=== PATIENT | male | born 1940 | race Caucasian/White ===

== ENCOUNTER → 2024-09-09 14:26 | Outpatient (REF) | payer OTHER, SELFPAY | LOC: HWRAD 14:26 | PROVIDERS: ATTENDING PHYSICIAN Family Medicine | DX: R63.4 Abnormal weight loss (principal); N18.2 Chronic kidney disease, stage 2 (mild) | CPT/HCPCS: 74176 ==

== ENCOUNTER 2024-09-17 11:34 | Inpatient (IN) | payer OTHER, SELFPAY ==
[2024-09-17] VITALS (9 sets, daily range): BP systolic 112–136; BP diastolic 59–83; BMI 21.2
--- NOTE | 2024-09-17 08:08 | ED.GENMED ---
History of Present Illness
General
Chief Complaint: Weakness
Source: patient
Exam Limitations: none
Time Seen by Provider: 09/17/24 07:51
History of Present Illness
History of Present Illness:
84-year-old male presents via EMS from his residence with complaints of generalized weakness. He has a fairly recent diagnosis of cancer. There is metastasis in the lungs and liver. They believe it might be a GI primary source. Patient notes
that his diarrhea he is not having has been going on for quite some time. He cannot keep anything in. He is lost 30 pounds in 5 months. He has recently seen [facility]. He recently had a CT scan of his abdomen and pelvis. He denies
any blood in the stool. He does have a history of [id number] diabetes. He states any form of exertion or activity is quite tiresome for him
Past History
Past History
ED Past Medical History: Other
ED Past Surgical History: Other
Social History
Tobacco: Non-smoker
Phy Exam
Physical Exam
Physical Exam:
General: Cachectic appearing male no acute respiratory distress
HEENT: Normocephalic atraumatic mucosa dry
Heart: Regular rate and rhythm
Lungs: Clear no wheeze
Abdomen is soft nontender nondistended
Extremities: No cyanosis
Skin: Warm no rash
Neurologic exam: Alert and oriented no facial asymmetry
Course
Orders/Labs/Results
Orders:
Orders
09/17/24 08:05
STOOL [C difficile Antigen & Toxins] Urgent
VERÓNICA Source: Feces/Stool
Specimen Description:
Stool Culture Urgent
VERÓNICA Source: Feces/Stool
Specimen Description:
09/17/24 08:06
Electrocardiogram (*1) Urgent
Reason for Study: Fatigue / Weakness
EKG- Treatment ONCE
09/17/24 08:17
Complete Blood Count/With Diff Urgent
Comprehensive Metabolic Panel Urgent
Ferritin Urgent
Iron Urgent
TIBC [Total Iron Binding] Urgent
0.9% Sodium Chloride 1000 ml [Nss] 1,000 ml IV BOLUS
09/17/24 09:25
Acetaminophen [Tylenol] 650 mg PO NOW STA
Abnormal Lab Results
09/17/24
08:17
MCHC 32.7 L g/dL
(33.0-37.0)
RDW 18.6 H %
(11.5-14.5)
Plt Count 99 L 10^3/uL
(130-400)
MPV 12.2 H fL
(7.4-10.4)
Abs Immat Gran (auto) 0.1 H 10^3/uL
(0-0.05)
Absolute Neuts (auto) 7.3 H 10^3/uL
(1.4-6.5)
Absolute Lymphs (auto) 1.0 L 10^3/uL
(1.2-3.4)
Absolute Monos (auto) 0.7 H 10^3/uL
(0.1-0.6)
Neutrophils % 79.6 H %
(42.2-75.2)
Lymphocytes % 11.5 L %
(20.5-51.1)
Carbon Dioxide 13 L* mmol/L
(22-30)
BUN 52 H mg/dl
(9-20)
Creatinine 1.8 H mg/dL
(0.7-1.3)
Glucose 123 H mg/dl
(70-99)
Iron 45 L ug/dl
(49-181)
TIBC 243 L ug/dl
(261-462)
% Saturation 18 L %
(20-50)
Total Bilirubin 1.5 H mg/dl
(0.2-1.3)
AST 90 H U/L
(17-59)
ALT 55 H U/L
(0-50)
Alkaline Phosphatase 261 H U/L
(38-126)
Total Protein 6.2 L g/dl
(6.3-8.2)
Albumin 3.4 L g/dl
(3.5-5.0)
09/17/24 08:17
09/17/24 08:17
Vital Signs
Initial and Last Documented VS:
Initial Vital Signs
Resp BP
19 125/70
09/17/24 07:56 09/17/24 07:56
Last Documented Vital Signs
Temp Pulse Resp BP Pulse Ox
98.2 F 99 17 128/67 97
09/17/24 08:00 09/17/24 08:30 09/17/24 08:30 09/17/24 08:00 09/17/24 08:37
MDM/Problems Addressed
Differential Diagnosis Includes:
Weakness and fatigue. Recent diagnosis of cancer. Notes excessive diarrhea. Consider electrolyte abnormality versus dehydration versus kidney injury. Will check stool studies. I reviewed CT scan from last week of his abdomen and pelvis which
demonstrates lesions in the lung liver and questionable rectosigmoid lesion.
*Critical Care Note
Total Time (30-74mins, 75-104mins- exclusive of procedures): Not Applicable
Update Note
Update Note:
Labs demonstrate a metabolic acidosis with acute kidney injury. Suspect patient is quite dehydrated. Relayed this information to the patient and the [id number] who is now in the room. Will admit to hospital for further evaluation
ED Attending Note
-
Portions of this chart may have been created with voice recognition software.� Occasional wrong word or��sound alike� substitutions may have occurred due to the inherent limitations of voice recognition software.
Discharge Plan
Departure
Patient Disposition: Admit
Date of Disposition: 09/17/24
Time of Disposition: 09:27
Admit to: Med/Surg
Presentation/result/management discussed w/ accepting MD/DO: Hospitalist
Discharge Problem:
Metabolic acidosis
Prescriptions:
No Action
terazosin 10 mg Capsule
10 mg PO HS
Referrals:
David Vidal MD [Family Provider] -
Interventions
Interventions:
*Risk Screen - Suicide Last Done: 09/17/24 08:00
*General Assessment Last Done: 09/17/24 08:00
*Neglect/Abuse Screening Last Done: 09/17/24 08:00
ED- Fall Risk Assessment Last Done: 09/17/24 08:37
*ED COVID-19 Vaccine History Last Done: 09/17/24 08:36
ED- Cardiac Assessment Last Done: 09/17/24 08:37
ED- Neurological Assessment Last Done: 09/17/24 08:37
ED- Pulmonary Assessment Last Done: 09/17/24 08:37
Discharge Date and Time
Print Language: MAORI
[2024-09-17] MEDS: NSS 1000 IV (08:34)
[2024-09-17 08:56] LABS: ALT (SGPT) 55 U/L (0-50); AST (SGOT) 90 U/L (17-59); Albumin 3.4 g/dl (3.5-5.0); Alkaline Phosphatase 261 U/L (38-126); Blood Urea Nitrogen 52 mg/dl (9-20); Calcium 8.9 mg/dl (8.4-10.2); Carbon Dioxide 13 mmol/L (22-30); Chloride 107 mmol/L (98-107); Estimated Creatinine Clearance 30 ml/min; Glucose 123 mg/dl (70-99); Iron 45 ug/dl (49-181); Potassium 3.9 mmol/L (3.5-5.1); Sodium 136 mmol/L (135-145); Total Bilirubin 1.5 mg/dl (0.2-1.3); Total Protein 6.2 g/dl (6.3-8.2); eGFR 36.43
[2024-09-17 08:59] LABS: Percent Saturation 18 % (20-50); Total Iron Binding Capacity 243 ug/dl (261-462)
[2024-09-17 09:03] LABS: % Basophils 0.2 % (0-2); % Eosinophils 0.1 % (0-6); % Immature Granulocytes 0.5 % (0-0.5); % Lymphocytes 11.5 % (20.5-51.1); % Monocytes 7.9 % (1.7-9.3); % Neutrophils 79.6 % (42.2-75.2); Absolute Immature Granulocytes 0.1 10^3/uL (0-0.05); Absolute Monocytes 0.7 10^3/uL (0.1-0.6); Absolute Neutrophils 7.3 10^3/uL (1.4-6.5); Hematocrit 44.9 % (39.0-52.0); Mean Corp Hgb Conc. 32.7 g/dL (33.0-37.0); Mean Corpuscular Hgb 27.1 pg (27.0-31.0); Mean Corpuscular Volume 83.1 fL (80.0-94.0); Mean Platelet Volume 12.2 fL (7.4-10.4); Nucleated Red Blood Cells % 0 % (-); Platelet Count 99 10^3/uL (130-400); Red Blood Cell Count 5.49 10^6/uL (4.70-6.10); Red Cell Dist. Width 18.6 % (11.5-14.5); White Blood Cell Count 9.2 10^3/uL (4.8-10.8)
[2024-09-17] MEDS: TYLENOL 650 MG PO (09:34)
--- NOTE | 2024-09-17 10:59 | HPS.HSE ---
Family Physician
-
Family Physician: David Vidal
Chief Complaint
-
weakness
History of Present Illness
84-year-old male extensive past medical history who is presenting from home with complaints of diarrhea and weakness. Patient states of recent 35 pound weight loss. Recently underwent CAT scan without contrast which showed pulmonary nodule and
liver lesions. Unknown primary. Patient subsequently followed up with the oncology who recommended flex sig for further evaluation. Patient also states of chronic diarrhea which has been ongoing for few weeks. States diarrhea alternates with
solid stools. States of severely decreased appetite. Denies any nausea or vomiting. Denies any blood in stool. Denies any dysphagia odynophagia. Denies any prior history of endoscopy or colonoscopy. States mother with a history of colonic
cancer. Also states of right upper quadrant abdominal pain. States recently he was told he has elevated creatinine and that with chronic kidney disease. Denies any fevers or chills. Denies any chest pain or palpitations. Denies any shortness of
breath at rest or exertion. Denies any orthopnea PND or lower extremity edema.
Medical History
Past Medical History
Past Medical History: Reports Other
Additional Past Medical History:
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
Primary hypertension
Diabetes mellitus
Hyperlipidemia
CKD stage II
BPH
Past Surgical History: Reports Tonsilectomy
Social History
Tobacco: Non-smoker
Drug: None
Family History
Family History: Cancer (Colon cancer-mother )
Allergies / Home Medications
Allergies reflects when Allergies were last updated in [facility].
Home Medications with original date entered in [facility]
Allergy/Medication List:
Allergies
Allergy/AdvReac Type Severity Reaction Status Date / Time
lisinopril Allergy Unknown Verified 09/17/24 07:59
Sulfa (Sulfonamide Allergy Nausea / Verified 09/17/24 07:59
Antibiotics) Vomiting
Home Medications
acetaminophen 500 mg tablet 1,000 mg PO HS PRN mild pain 09/17/24
amlodipine 10 mg tablet 10 mg PO DAILY 09/17/24
aspirin 81 mg tablet,delayed release 81 mg PO DAILY 09/17/24
atenolol 50 mg tablet 50 mg PO BID 09/17/24
calcium carbonate (Tums) 200 mg PO DAILY PRN gerd 09/17/24
metformin 1,000 mg tablet 1,000 mg PO BID 09/17/24
omega 2-yac-rev-fish oil 1,000 mg (120 mg-180 mg) capsule (Fish Oil) 4 cap PO DAILY 09/17/24
simvastatin 20 mg tablet 20 mg PO DAILY 09/17/24
terazosin 10 mg capsule 10 mg PO HS 09/17/24
triamterene 37.5 mg-hydrochlorothiazide 25 mg capsule 1 cap PO DAILY 09/17/24
Review of Systems
-
History Source: Patient
A 12 point ROS was completed and negative except as noted: Yes
Physical Exam
Vital Signs
Vital Signs
Temp Pulse Resp BP Pulse Ox
98.2 F 85 20 136/65 96
09/17/24 08:00 09/17/24 10:15 09/17/24 10:15 09/17/24 10:00 09/17/24 10:15
Physical Exam
General: No Apparent Distress, Comfortable, Conversant and Appears Chronically Ill
HEENT: NormoCephalic, Anicteric, Moist mucous membranes, Atraumatic, No Ptosis, Nose Appears Normal and Ears Appear Normal
Respiratory: Clear
Cardiac: S1/S2 and Regular Rhythm; No Murmur or Rub
GI: Soft, Non Distended, Normal Bowel Sounds and Tender (RUQ ); No Organomegaly
Rectal: Deferred by Provider
Musculoskeletal: No Cyanosis and No Edema
Skin: Warm; No Rash
Neuro: Awake, Alert, Oriented, AO x 3, No Motor Deficits and Nonfocal/grossly intact
Psych: Calm
Laboratory Results
-
09/17/24 08:17
09/17/24 08:17
Laboratory Results
Total Bilirubin 1.5 mg/dl (0.2-1.3) H 09/17/24 08:17
AST 90 U/L (17-59) H 09/17/24 08:17
ALT 55 U/L (0-50) H 09/17/24 08:17
Alkaline Phosphatase 261 U/L (38-126) H 09/17/24 08:17
Impression/Plan
-
#Weakness likely secondary to dehydration secondary to diarrhea
#Metabolic acidosis secondary to diarrhea
Awaiting for stool studies
Low residue diet
Start patient on sodium bicarbonate infusion
PT and OT evaluation in the morning
If stool studies negative can do trial of Imodium
Check orthostatics
Encourage p.o. intake
GI evaluation
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
#Weight loss likely secondary to suspected malignancy
Awaiting cancer tumor marker
GI recommended against flex sig
Dietary eval
Once creatinine improves can do liver biopsy will defer to oncology/[facility] as outpatient
#Elevated creatine w chronic kidney disease stage II
Hold HCTZ and triamterene
Bicarbonate infusion
Bladder scan straight cath protocol
Recent CT abdomen pelvis was negative for hydronephrosis
Trend creatinine daily
#Primary hypertension
Continue with Norvasc and atenolol
Holding triamterene and HCTZ
Diabetes mellitus type 2
Hold metformin
Insulin sliding scale and Accu-Cheks for now
Hyperlipidemia
Continue statin
BPH
Monitor urinary output
DVT prophylaxis with Lovenox
I spent a total of 78 minutes with the patient or on the floor. More than 50% of this time involved counseling and coordination of care.
--- NOTE | 2024-09-17 11:07 | CON.GI ---
Addendum entered and electronically signed by Juan Manuel Glynn MD 09/17/24 12:49:
Patient seen and examined, agree with nurse practitioner note. Patient is an 84-year-old male with chronic renal insufficiency, diabetes who presents with decreased appetite, weight loss and right-sided abdominal pain. He states that for the past
several weeks he has been having decreased energy and weight loss and notices right-sided pain, not related to eating. He had a CT scan without contrast that showed suspicious for centimeter focus in the left lobe of the liver for malignancy,
though also heterogeneity of the right lobe of the liver concerning for more diffuse metastatic disease along with multiple pulmonary nodules. There is also a 2.8 cm cystic focus that was adjacent to the rectosigmoid, though not intraluminal.
There is no obvious mass, again on this noncontrast CT scan. He is never had an endoscopy or colonoscopy and has been having some increasing intermittent diarrhea and constipation. He denies any melena or hematochezia, dysphagia or odynophagia.
On exam he has some right upper quadrant tenderness though otherwise is benign. At this point his presentation is consistent with metastatic cancer of unknown primary. The fluid collection noted near the rectosigmoid was extraluminal, and not
intraluminal, making this a low yield place for biopsy. A more likely high yield would be liver biopsy, and would be more beneficial if could do imaging with contrast for better clarification. At this point would continue supportive care, IV
fluids, oncology continued evaluation, and again would recommend biopsy of liver lesion for diagnosis rather than colonoscopy which would be more difficult given his overall conditioning, and again the rectosigmoid collection was adjacent, and not
intraluminal. Will check labs including alpha-fetoprotein though no other obvious stigmata of cirrhosis to suggest HCC. Will continue to follow for now.
Original Note:
Consultation
-
Date/Time Consultation Requested: 09/17/24 1100
Date/Time Consultation Performed: 09/17/24 1107
Requesting Provider: Dr. Mccain
Performing Provider: Dr. Glynn
Reason for Consultation: chronic diarhhea, colon mass
Medical History
Chief Complaint / HPI
Chief Complaint: Weight loss, diarrhea
History of Present Illness:
84-year-old male with past medical history of diabetes, hyperlipidemia chronic kidney disease, BPH, weight loss of 40 pounds in 1 month, poor appetite, diarrhea with right sided abdominal pain. The patient had outpatient CT of the abdomen pelvis
without oral or IV contrast performed on 09/09/2024 that showed numerous bilateral pulmonary nodules which measure up to 2.3 cm in the medial left lower lobe and likely pulmonary metastasis. 4.0 cm hypodense lesion within the left hepatic lobe as
well as extensive heterogeneous appearance of the mid/upper right hepatic lobe which are also suspicious for metastatic disease. 2.8 cm cystic focus adjacent to the rectosigmoid junction which may represent focal free fluid. Trace perihepatic free
fluid. Labs performed on 08/27/2024 showed WBC 10.3, hemoglobin 14.1, hematocrit 45.3, MCV 89, MCH 27.8, platelets 174, sodium 135, potassium 4.4, chloride 103, CO2 10, BUN 48, creatinine 2.36, glucose 147, total bilirubin 0.6, AST 50, ALT 36, alk
phos 182, albumin 4.0, total protein 6.5, calcium 9.3, TSH was 4.5. The patient saw Dr. Vesna Sanchez on Monday for evaluation. She recommended GI evaluation for CT findings as well as outpatient lab work. Patient had progressive weakness
and came to the emergency room for further evaluation. The patient states that over the past 2 months he has had intermittent right sided abdominal pain that happens without provocation. He states this is dull, nonradiating, nothing makes better
or worse. He also has poor appetite. He states he does not necessarily have nausea. He forces himself to eat at times. He can have some discomfort. He has lost approximately 40 pounds. He has had bowel changes in the past month in the form of
that he will have loose stools alternating with some solid pieces coming out. At first he thought this was straight diarrhea however after discussing with him he will notice solid pieces coming out with large quantities of loose stools after. He
denies any fevers, chills, nausea, vomiting, melena, hematochezia, dysphagia or odynophagia. He denies any acholic stools or bilirubinuria. He denies any history of hepatitis, jaundice or known liver disease. He denies any history of tattoos,
piercings or IV drug use. He has never had any blood transfusions. He does have a family history of colon cancer in his mother who was diagnosed at the age of 56. He has never had an endoscopy or colonoscopy in his lifetime. He states his
brother had prostate cancer. The patient does not smoke. In the past he would only drink 1 glass of wine never anything more. He has not done this in quite a long time. Rectal exam performed by myself in the emergency room without any palpable
mass, light brown stool. Trace OB positive. Current labs WBC 9.2, hemoglobin 15.0, hematocrit 44.9, platelets 99, MCV 83.1, MCH 27.1, sodium 136, potassium 3.9, chloride 107, CO2 13, BUN 52, creatinine 1.8, glucose 123, iron 45, TIBC 243, percent
saturation 18, total bilirubin 1.5, AST 90, ALT 55, alk phos 261.
Past Medical History
Past Medical History: Hypercholesterolemia, NIDDM and Other (Chronic kidney disease, BPH, benign positional vertigo)
Past Surgical History: Tonsilectomy
Social History
Tobacco: Non-Smoker
Alcohol: None
Drug: None
Living: With Family
Family History
Family History: Other (Mother history of colon cancer age 56, brother prostate cancer)
Allergies / Home Medications
Allergy/AdvReac Type Severity Reaction Status Date / Time
lisinopril Allergy Unknown Verified 09/17/24 07:59
Sulfa (Sulfonamide Allergy Nausea / Verified 09/17/24 07:59
Antibiotics) Vomiting
�Medication �Instructions �Recorded
acetaminophen 500 mg tablet 1,000 mg PO HS PRN mild pain 09/17/24
amlodipine 10 mg tablet 10 mg PO DAILY 09/17/24
aspirin 81 mg tablet,delayed 81 mg PO DAILY 09/17/24
release
atenolol 50 mg tablet 50 mg PO BID 09/17/24
calcium carbonate (Tums) 200 mg PO DAILY PRN gerd 09/17/24
metformin 1,000 mg tablet 1,000 mg PO BID 09/17/24
omega 4-wxy-mjx-fish oil 1,000 mg 4 cap PO DAILY 09/17/24
(120 mg-180 mg) capsule (Fish Oil)
simvastatin 20 mg tablet 20 mg PO DAILY 09/17/24
terazosin 10 mg capsule 10 mg PO HS 09/17/24
triamterene 37.5 1 cap PO DAILY 09/17/24
mg-hydrochlorothiazide 25 mg
capsule
Review of Systems
-
All other systems: A 12 pt ROS was Negative except as stated above in HPI
Vital Signs
Temp Pulse Resp BP Pulse Ox
98.2 F 85 20 136/65 96
09/17/24 08:00 09/17/24 10:15 09/17/24 10:15 09/17/24 10:00 09/17/24 10:15
Physical Exam
Exam
General: No Apparent Distress
HEENT: Anicteric
Respiratory: Clear (Anterior)
Cardiac: Regular Rhythm
GI: Soft, Non Distended, Normal Bowel Sounds and Tender (Right upper quadrant)
Rectal: Brown (Light brown stool rectal vault, solid stool) and Hem Positive (Trace OB positive)
Musculoskeletal: No Edema
Skin: Warm and Dry
Neuro: AO x 3
Psych: Calm
Results
WBC 9.2 10^3/uL (4.8-10.8) 09/17/24 08:17
Hgb 15.0 g/dL (13.0-18.0) 09/17/24 08:17
Hct 44.9 % (39.0-52.0) 09/17/24 08:17
MCV 83.1 fL (80.0-94.0) 09/17/24 08:17
Plt Count 99 10^3/uL (130-400) L 12/03/24 08:17
Absolute Neuts (auto) 7.3 10^3/uL (1.4-6.5) H 09/17/24 08:17
Sodium 136 mmol/L (135-145) 09/17/24 08:17
Potassium 3.9 mmol/L (3.5-5.1) 09/17/24 08:17
Chloride 107 mmol/L (98-107) 09/17/24 08:17
Carbon Dioxide 13 mmol/L (22-30) L* 09/17/24 08:17
BUN 52 mg/dl (9-20) H 09/17/24 08:17
Creatinine 1.8 mg/dL (0.7-1.3) H 09/17/24 08:17
Calcium 8.9 mg/dl (8.4-10.2) 09/17/24 08:17
Total Bilirubin 1.5 mg/dl (0.2-1.3) H 09/17/24 08:17
AST 90 U/L (17-59) H 09/17/24 08:17
ALT 55 U/L (0-50) H 09/17/24 08:17
Alkaline Phosphatase 261 U/L (38-126) H 09/17/24 08:17
Diagnostic Image Results:
CT abdomen and pelvis without oral or IV contrast 09/09/2024:
There are numerous bilateral pulmonary nodules which measure up to 2.3 cm in the medial left lower lobe and are likely pulmonary metastasis.
There is a 4.0 cm hypodense lesion within the left hepatic lobe as well as extensive heterogeneous appearance of the mid/upper right hepatic lobe which are also suspicious for metastatic disease.
There is a 2.8 cm cystic focus adjacent to the rectosigmoid junction which may represent focal free fluid. There is trace perihepatic free fluid.
Prior GI Procedures:
EGD: Never had
Colonoscopy: Never had
Assessment / Plan
-
84-year-old male with past medical history of diabetes, hyperlipidemia chronic kidney disease, BPH, weight loss of 40 pounds in 1 month, poor appetite, change in bowel habits with right sided abdominal pain. CT of the abdomen and pelvis with out
oral or IV contrast on 09/09/2024 showing There are numerous bilateral pulmonary nodules which measure up to 2.3 cm in the medial left lower lobe and are likely pulmonary metastasis. There is a 4.0 cm hypodense lesion within the left hepatic lobe as
well as extensive heterogeneous appearance of the mid/upper right hepatic lobe which are also suspicious for metastatic disease. There is a 2.8 cm cystic focus adjacent to the rectosigmoid junction which may represent focal free fluid. There is
trace perihepatic free fluid. Normal hemoglobin. Light brown stool in rectal vault that is trace OB positive. Patient does have a family history of colon cancer and has never had endoscopy or colonoscopy in the past. Does not truly have diarrhea
but alternate between chunks of hard stool and loose stool for the past month.
Impression:
Metastatic cancer-> lesion seen in bilateral lungs, 4 cm lesion in left hepatic lobe as well as extensive heterogeneous appeared of the mid/upper right hepatic lobe.
Change in bowel habits-> area in the colon is a 2.8 cm cystic focus adjacent to the rectosigmoid junction a represent focal free fluid
Weight loss
Weakness
Chronic kidney disease
Diabetes
Plan:
-CEA, CA 19-9, alpha-fetoprotein
-Recommend heme-onc consult
-Recommend liver biopsy
-Trend labs
-Further recommendations to be forthcoming
-
-
Thank you for consultation and allowing me to participate in the patient's care. Please call the surgeon's assistant GI physician during the after hours with any questions or concerns.
--- NOTE | 2024-09-17 14:14 | PTCARENOTE ---
pt admitted from ED AOx3 LCTA B/L. Regular heart sounds. Pt's son at bedside. +BS x4 Pt c/o intermit. RUQ pain. attending notified. Pt has very dry cracked heels, Vaseline applied, heels off loaded, education provided. No edema, +PP B/L CB in reach,
oriented to surroundings.
[2024-09-17] MEDS: SODIUM BICARBONATE 1150 MEQ IV (15:08)
[2024-09-17] MEDS: NOVOLOG FLEXPEN-LOW RESISTANCE SC (16:12)
--- NOTE | 2024-09-17 16:13 | CM ---
Patient eusebio de souza with son in room, IA completed.
Patient lives in a split level next door to his son and daughter in law.
patient lives with spouse who has dementia in a split level home- (daughter in law with her).
2+1 steps to enter home.
Has walker and cane but mostly furniture glides.
Hand rails on both sides of the stairs.
Per patient he can drive
Patient has not had VN, but spouse has had [facility]
PCP: Dr Vidal
[facility]
Plan: to be determined,home with possible VN.
[2024-09-17 16:16] LABS: Glucose - Point of Care 94 mg/dl (70-99)
[2024-09-17] MEDS: LOVENOX 30 MG SC (17:29)
[2024-09-17] MEDS: TENORMIN 50 MG PO (21:16)
[2024-09-17 21:31] LABS: Glucose - Point of Care 127 mg/dl (70-99)
[2024-09-18] MEDS: TYLENOL 650 MG PO ×2 (02:17→20:47)
--- NOTE | 2024-09-18 06:40 | W.PN.GI.CBS2 ---
Today's Communication / Plan
-
Please see assessment and plan for details.
Assessment / Plan
-
1. Metastatic cancer of unknown primary: CT scan without contrast showed 4 cm lesion in the left hepatic lobe, though suspicion for more diffuse metastatic cancer in the liver given appearance without contrast. Again from a diagnostic standpoint
the highest he would like to be liver biopsy, ideally would be able to have imaging with contrast, and will continue to trend base metabolic panel, hopefully able to do CT with contrast. Cystic fluid collection again was adjacent to the colon and
not intraluminal making this a low yield place for diagnosis, and given his overall deconditioning we will hold on colonoscopy as they are likely better avenues for diagnosis. Would have heme-onc help guide diagnosis/treatment. Await tumor
markers, again HCC seems less likely.
Subjective
Subjective
Date of Service: September 18, 2024
Patient feeling okay, some less pain overnight. No fevers or chills, tolerating diet.
Objective
Data Reviewed
Laboratory Data:
Laboratory Results
Total Bilirubin 1.5 mg/dl (0.2-1.3) H 09/17/24 08:17
AST 90 U/L (17-59) H 09/17/24 08:17
ALT 55 U/L (0-50) H 09/17/24 08:17
Alkaline Phosphatase 261 U/L (38-126) H 09/17/24 08:17
Vital Signs and I&O:
Vital Signs
Temp Pulse Resp BP Pulse Ox
97.5 F 72 18 124/59 96
09/17/24 23:14 09/17/24 23:14 09/17/24 23:14 09/17/24 23:14 09/17/24 23:14
I&O
09/16/24 09/17/24 09/18/24
06:59 06:59 06:59
Intake Total 460 / 460
Balance 460 / 460
Physical Exam
Physical Exam
General: NAD
Abdomen: normal bowel sounds, soft, no tenderness, no masses or bruits, no ascites
[2024-09-18 07:00] VITALS: BP 135/55
[2024-09-18] MEDS: NOVOLOG FLEXPEN-LOW RESISTANCE SC ×3 (07:55→17:42)
[2024-09-18] MEDS: LIPITOR 10 MG PO (07:58)
[2024-09-18] MEDS: NORVASC 10 MG PO (07:58)
[2024-09-18] MEDS: TENORMIN 50 MG PO ×2 (07:58→20:54)
[2024-09-18] MEDS: ASPIR LOW (ENTERIC COATED) 81 MG PO (07:59)
[2024-09-18 08:04] LABS: Glucose - Point of Care 81 mg/dl (70-99)
[2024-09-18 08:45] LABS: INR 1.27; PT 16.4 Sec (11.4-14.6)
[2024-09-18 09:03] LABS: % Basophils 0.3 % (0-2); % Eosinophils 0.3 % (0-6); % Immature Granulocytes 0.5 % (0-0.5); % Lymphocytes 13.8 % (20.5-51.1); % Monocytes 8.5 % (1.7-9.3); % Neutrophils 76.6 % (42.2-75.2); Absolute Lymphocytes 1.1 10^3/uL (1.2-3.4); Absolute Monocytes 0.7 10^3/uL (0.1-0.6); Absolute Neutrophils 6.1 10^3/uL (1.4-6.5); Hematocrit 42.6 % (39.0-52.0); Mean Corp Hgb Conc. 32.9 g/dL (33.0-37.0); Mean Corpuscular Hgb 26.8 pg (27.0-31.0); Mean Corpuscular Volume 81.5 fL (80.0-94.0); Nucleated Red Blood Cells % 0 % (-); Platelet Count 101 10^3/uL (130-400); Red Blood Cell Count 5.23 10^6/uL (4.70-6.10); Red Cell Dist. Width 18.6 % (11.5-14.5); White Blood Cell Count 7.9 10^3/uL (4.8-10.8)
[2024-09-18 09:04] LABS: Glycohemoglobin (HgbA1c) 6.2 % (4.0-5.6)
[2024-09-18 09:37] LABS: TSH Reflex To Free T4 3.79 uIU/ml (0.47-4.68)
[2024-09-18 09:44] LABS: ALT (SGPT) 91 U/L (0-50); AST (SGOT) 180 U/L (17-59); Alkaline Phosphatase 397 U/L (38-126); Blood Urea Nitrogen 44 mg/dl (9-20); Calcium 8.6 mg/dl (8.4-10.2); Carbon Dioxide 16 mmol/L (22-30); Chloride 104 mmol/L (98-107); Estimated Creatinine Clearance 36 ml/min; Glucose 90 mg/dl (70-99); Magnesium 2.2 mg/dl (1.6-2.3); Potassium 3.7 mmol/L (3.5-5.1); Sodium 135 mmol/L (135-145); Total Bilirubin 2.2 mg/dl (0.2-1.3); Total Protein 5.6 g/dl (6.3-8.2); eGFR 45.34
--- NOTE | 2024-09-18 10:36 | W.PN.HOSP.TC ---
Today's Communication/Plan
-
Trend Cr
await tumor markers
po bicarb
IVF
PT/OT
Assessment / Plan
Assessment / Plan
General: No Apparent Distress, Comfortable, Conversant and Appears Chronically Ill
HEENT: NormoCephalic, Anicteric, Moist mucous membranes, Atraumatic, No Ptosis, Nose Appears Normal and Ears Appear Normal
Respiratory: Clear
Cardiac: S1/S2 and Regular Rhythm; No Murmur or Rub
GI: Soft, Non Distended, Normal Bowel Sounds and Tender (RUQ ); No Organomegaly
Rectal: Deferred by Provider
Musculoskeletal: No Cyanosis and No Edema
Skin: Warm; No Rash
Neuro: Awake, Alert, Oriented, AO x 3, No Motor Deficits and Nonfocal/grossly intact
Psych: Calm
#Weakness likely secondary to dehydration secondary to diarrhea
#Metabolic acidosis secondary to diarrhea
Negative for C. difficile and norovirus
Low residue diet
PT and OT evaluation
If persistent loose stool can do trial of Imodium
Check orthostatics
Encourage p.o. intake
GI recs
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
#Weight loss likely secondary to suspected malignancy
Awaiting cancer tumor marker
GI recommended against flex sig
Dietary eval
CEA at 18
AFP and CA 19-19 pending
# Acute kidney injury on chronic kidney disease likely stage II versus 3
Hold HCTZ and triamterene
Status post bicarbonate drip. Acidosis improving. Start patient p.o. bicarb. Start patient on additional IV fluids.
Bladder scan straight cath protocol
Recent CT abdomen pelvis was negative for hydronephrosis
Trend creatinine daily
Mild improvement in creatinine to 1.5 today.
#Primary hypertension
Continue with Norvasc and atenolol
Holding triamterene and HCTZ and terazosin for now.
Diabetes mellitus type 2
Hold metformin
Insulin sliding scale and Accu-Cheks for now
A1c is 6.2
Thrombocytopenia
Unclear chronicity
Trend for now
Hyperlipidemia
Continue statin
BPH
Monitor urinary output
DVT prophylaxis with Lovenox
PT/OT
Anticipated Discharge: > 48 hours
Subjective/Interval History
-
Date of Service: September 18, 2024
states of mild improvement in abd discomfort
having intermittent loose stools
no nausea or vomiting
Objective Data
-
Labs:
Laboratory Results
09/18/24
08:14
WBC 7.9
Hgb 14.0
Hct 42.6
Plt Count 101 L
PT 16.4 H
INR 1.27
Sodium 135
Potassium 3.7
Chloride 104
Carbon Dioxide 16 L
BUN 44 H
Creatinine 1.5 H
Glucose 90
Calcium 8.6
Total Bilirubin 2.2 H
AST 180 H
ALT 91 H
Alkaline Phosphatase 397 H
Vital Signs:
Vital Signs
Temp Pulse Resp BP Pulse Ox
98.1 F 58 14 135/99 96
09/18/24 07:00 09/18/24 07:00 09/18/24 07:00 09/18/24 07:58 09/18/24 07:00
I&O
09/17/24 09/18/24 09/19/24
06:59 06:59 06:59
Intake Total 460 / 460
Balance 460 / 460
Data Reviewed
-
Total Time Spent with Patient (in minutes): 55
[2024-09-18 11:13] VITALS: BP 113/55; BP 99/45; PULSE 59; O2SAT 98
[2024-09-18] MEDS: SODIUM BICARBONATE 650 MG PO ×3 (11:13→22:57)
[2024-09-18] MEDS: LR 1000 IV (11:14)
[2024-09-18] MEDS: ULTRAM 25 MG PO (11:24)
[2024-09-18 12:56] LABS: Glucose - Point of Care 89 mg/dl (70-99)
--- NOTE | 2024-09-18 14:32 | PN.CDI ---
CDI
- -
CDI:
Physician Documentation Request
Admit Date: 09/17/24 11:34
Dear Doctor Haritha,
Please review the following and provide your response in the progress notes.
Clinical Indicators:
Pt admitted with weakness secondary to dehydration secondary to diarrhea.
09/17 Registered Dietitian: '....Compared to UBW in March of 182 lbs pt with a 26 lb, 13% weight loss in 6 months.
During visit RD able to visualize temporal wasting, calf muscle wasting, apparent ribs, protrusion of clavical, orbital area sunken in.
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
If possible, please provide in your progress notes, additional specificity regarding the severity of the malnutrition:
Moderate Protein Malnutrition
Other (please specify)
[place] Criteria ([facility] Hospitalist 2017)
2 or more criteria must be present for either
non severe or severe malnutrition
Note that the criteria differs related to the
presence of an acute or chronic illness
Chronic Illness
Energy Intake Non Severe: <75% for >1 month
Severe: <75% for >1 month
Weight Loss Non Severe: 5% over 1 month
7.5% over 3 months
10% over 6 months
20% over 1 year
Severe: >5% over 1 month
>7.5% over 3 months
>10% over 6 months
>20% over 1 year
Body Fat Non Severe: Mild Loss
Severe: Severe Loss
Muscle Mass Non Severe: Mild Loss
Severe: Severe Loss
Additional criteria that can be used to Determine if Mild or Moderate Malnutrition ([employer] Manual 2018)
Use of terms such as suspected, likely, concern for, or probable (associated with a specific diagnosis that is being evaluated, monitored, or treated as if it exists) are acceptable and can be coded in the inpatient setting, when documented at the
time of discharge.
Thank you,
Iwona Pandey RN, BSN
CDI Specialist
Available via [facility] [employer]
Please use your independent medical judgment in providing your response.
[2024-09-18 15:00] VITALS: BP 102/50
--- NOTE | 2024-09-18 15:03 | CM ---
Patient seen bedside.
PT/OT recommending home with VN.
Patient chose [facility], Liaison updated.
Plan: home with [facility] once medically stable, son will transport.
[facility]
[2024-09-18 17:30] LABS: Glucose - Point of Care 112 mg/dl (70-99)
[2024-09-18] MEDS: LOVENOX 30 MG SC (17:48)
[2024-09-18 21:53] LABS: Glucose - Point of Care 105 mg/dl (70-99)
[2024-09-18 23:00] VITALS: BP 123/53
[2024-09-19] MEDS: LR 1000 IV (01:28)
[2024-09-19 02:20] VITALS: BP 104/53; BP 118/47; BP 118/60; PULSE 54; PULSE 58; PULSE 63
[2024-09-19] MEDS: ULTRAM 25 MG PO (02:40)
--- NOTE | 2024-09-19 06:01 | W.PN.GI.CBS2 ---
Today's Communication / Plan
-
Please see assessment and plan for details.
Assessment / Plan
-
1. Metastatic cancer of unknown primary: CT scan without contrast showed 4 cm lesion in the left hepatic lobe, though suspicion for more diffuse metastatic cancer in the liver given appearance without contrast. Again from a diagnostic standpoint
the highest yield would like to be liver biopsy, ideally would be able to have imaging with contrast first to better define, and will continue to trend base metabolic panel, hopefully able to do CT with contrast. Cystic fluid collection again was
adjacent to the colon and not intraluminal making this a low yield place for diagnosis, and given his overall deconditioning we will hold on colonoscopy as they are likely better avenues for diagnosis. Again, would have heme-onc help guide
diagnosis/treatment. Await tumor markers, again HCC seems less likely.
Unfortunately not much else to add from GI standpoint, will sign off for now, please call back with any further questions.
Subjective
Subjective
Date of Service: September 19, 2024
Patient feeling okay, still some right-sided abdominal pain, still some loose stools after eating, though no bloody diarrhea, fevers or chills.
Objective
Data Reviewed
Laboratory Data:
Laboratory Results
PT 16.4 Sec (11.4-14.6) H 09/18/24 08:14
INR 1.27 09/18/24 08:14
Magnesium 2.2 mg/dl (1.6-2.3) 09/18/24 08:14
Total Bilirubin 2.2 mg/dl (0.2-1.3) H 09/18/24 08:14
AST 180 U/L (17-59) H 09/18/24 08:14
ALT 91 U/L (0-50) H 09/18/24 08:14
Alkaline Phosphatase 397 U/L (38-126) H 09/18/24 08:14
Vital Signs and I&O:
Vital Signs
Temp Pulse Resp BP Pulse Ox
98.1 F 53 18 123/53 96
09/18/24 23:00 09/18/24 23:00 09/18/24 23:00 09/18/24 23:00 09/18/24 23:00
I&O
09/17/24 09/18/24 09/19/24
06:59 06:59 06:59
Intake Total 460 / 460 1200 / 1200
Output Total 960 / 960
Balance 460 / 460 240 / 240
Physical Exam
Physical Exam
General: NAD
Abdomen: normal bowel sounds, soft, mild right upper quadrant tenderness, no masses or bruits, no ascites
[2024-09-19 07:14] LABS: % Basophils 0.3 % (0-2); % Eosinophils 0.4 % (0-6); % Immature Granulocytes 0.4 % (0-0.5); % Lymphocytes 17.3 % (20.5-51.1); % Monocytes 9.5 % (1.7-9.3); % Neutrophils 72.1 % (42.2-75.2); Absolute Lymphocytes 1.3 10^3/uL (1.2-3.4); Absolute Monocytes 0.7 10^3/uL (0.1-0.6); Absolute Neutrophils 5.4 10^3/uL (1.4-6.5); Hematocrit 41.8 % (39.0-52.0); Hemoglobin 13.5 g/dL (13.0-18.0); Mean Corp Hgb Conc. 32.3 g/dL (33.0-37.0); Mean Corpuscular Hgb 27.1 pg (27.0-31.0); Mean Corpuscular Volume 83.8 fL (80.0-94.0); Mean Platelet Volume 12.4 fL (7.4-10.4); Nucleated Red Blood Cells % 0 % (-); Platelet Count 97 10^3/uL (130-400); Red Blood Cell Count 4.99 10^6/uL (4.70-6.10); Red Cell Dist. Width 18.7 % (11.5-14.5); White Blood Cell Count 7.5 10^3/uL (4.8-10.8)
[2024-09-19 07:31] LABS: ALT (SGPT) 93 U/L (0-50); AST (SGOT) 147 U/L (17-59); Albumin 2.6 g/dl (3.5-5.0); Alkaline Phosphatase 386 U/L (38-126); Blood Urea Nitrogen 42 mg/dl (9-20); Calcium 8.3 mg/dl (8.4-10.2); Carbon Dioxide 17 mmol/L (22-30); Chloride 104 mmol/L (98-107); Estimated Creatinine Clearance 42 ml/min; Glucose 93 mg/dl (70-99); Potassium 3.7 mmol/L (3.5-5.1); Sodium 134 mmol/L (135-145); Total Bilirubin 1.5 mg/dl (0.2-1.3); Total Protein 5.1 g/dl (6.3-8.2); eGFR 53.84
[2024-09-19 07:38] LABS: Glucose - Point of Care 83 mg/dl (70-99)
[2024-09-19] MEDS: NOVOLOG FLEXPEN-LOW RESISTANCE SC ×2 (07:42→12:43)
[2024-09-19 08:10] VITALS: BP 135/62
[2024-09-19] MEDS: TYLENOL 650 MG PO ×3 (08:23→22:59)
[2024-09-19] MEDS: TENORMIN 50 MG PO ×2 (08:23→20:52)
[2024-09-19] MEDS: SODIUM BICARBONATE 650 MG PO ×3 (08:23→21:56)
[2024-09-19] MEDS: NORVASC 10 MG PO (08:23)
[2024-09-19] MEDS: LIPITOR 10 MG PO (08:23)
[2024-09-19] MEDS: ASPIR LOW (ENTERIC COATED) 81 MG PO (08:23)
--- NOTE | 2024-09-19 09:54 | VNURNOTE ---
Home Health Liaison met with patient to discuss [facility] nurse/therapy, visits, schedule and homebound status. Patient is agreeable and understands that visits at home will be 2-3 x per week to assess and teach medical management. [facility] brochure provided
with contact information. Patient is aware that [facility] will contact them for start of care in 1-2 days after discharge from . Requested rx for rolling walker from hospitalist.
[facility] referral accepted in [facility].
[2024-09-19 10:10] VITALS: BP 126/50; PULSE 60; O2SAT 94
--- NOTE | 2024-09-19 10:43 | CON.ONC ---
Impression
Impression
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
Diarrhea rule out C. difficile colitis
Metabolic syndrome
Plan
Plan
CEA and CA 19-9 sent from the office
Agree with IR directed biopsy of the liver which is what was recommended during OV
Add alpha-fetoprotein
Will follow
Patient History
History of Present Illness
84-year-old male extensive past medical history who is presenting from home with complaints of diarrhea and weakness. Patient states of recent 35 pound weight loss. Recently underwent CAT scan without contrast which showed pulmonary nodule and
liver lesions. We have previously recommended flex sig for diagnostic biopsy. Understand gastroenterology's reluctance to proceed given the possibility of C. difficile colitis. Patient also states of chronic diarrhea which has been ongoing for few
weeks. Patient reports continued anorexia but denies any nausea or vomiting Denies abdominal pain, fevers or chills. Denies any chest pain or palpitations. Denies any shortness of breath at rest or exertion. Denies any orthopnea PND or lower
extremity edema.
Past-Medical/Surgical History
Past Medical History:
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
Primary hypertension
Diabetes mellitus
Hyperlipidemia
CKD stage II
BPH
Past Surgical History:
Tonsilectomy
Social History:
Tobacco: Non-smoker
Drug: None
Family History:
Cancer (Colon cancer-mother )
Patient Medication
�Medication �Instructions �Recorded �Confirmed �Last Taken �Type
acetaminophen 500 mg tablet 1,000 mg PO HS PRN mild pain 09/17/24 09/17/24 09/16/24 History
amlodipine 10 mg tablet 10 mg PO DAILY Blood Pressure 09/17/24 09/17/24 09/13/24 History
aspirin 81 mg tablet,delayed 81 mg PO DAILY Blood Clot 09/17/24 09/17/24 Unknown History
release Prevention/Tx
atenolol 50 mg tablet 50 mg PO BID Blood Pressure 09/17/24 09/17/24 09/13/24 History
calcium carbonate (Tums) 200 mg PO DAILY PRN gerd 09/17/24 09/17/24 09/16/24 History
metformin 1,000 mg tablet 1,000 mg PO BID Diabetes 09/17/24 09/17/24 Unknown History
omega 9-noc-ste-fish oil 1,000 mg 4 cap PO DAILY Supplement 09/17/24 09/17/24 Unknown History
(120 mg-180 mg) capsule (Fish Oil)
simvastatin 20 mg tablet 20 mg PO DAILY High Cholesterol 09/17/24 09/17/24 Unknown History
terazosin 10 mg capsule 10 mg PO HS Urinary Issue 09/17/24 09/17/24 09/13/24 History
triamterene 37.5 1 cap PO DAILY Blood Pressure 09/17/24 09/17/24 09/13/24 History
mg-hydrochlorothiazide 25 mg
capsule
Active Medications
Generic Name Dose Route Start Last Admin
Trade Name Freq PRN Reason Stop Dose Admin
Acetaminophen 650 mg 09/17/24 14:06 09/19/24 08:23
Acetaminophen 325 Mg Tablet PO 10/15/24 14:05 650 mg
Q6HPRN PRN Administration
mild pain/ fever>100.5F
Amlodipine Besylate 10 mg 09/18/24 08:00 09/19/24 08:23
Amlodipine 10 Mg Tablet PO 10/16/24 07:59 10 mg
DAILY ÁNGEL Administration
Aspirin 81 mg 09/18/24 08:00 09/19/24 08:23
Aspirin 81 Mg (Enteric Coated) Tablet PO 10/16/24 07:59 81 mg
DAILY ÁNGEL Administration
Atenolol 50 mg 09/17/24 20:00 09/19/24 08:23
Atenolol 50 Mg Tablet PO 10/15/24 19:59 50 mg
BID ÁNGEL Administration
Atorvastatin Calcium 10 mg 09/18/24 08:00 09/19/24 08:23
Atorvastatin (Lipitor) 10 Mg Tablet PO 10/16/24 07:59 10 mg
DAILY ÁNGEL Administration
Dextrose 12.5 grams 09/17/24 14:08
Dextrose 50% (0.5 Grams/Ml) 50 Ml Syringe IV 10/15/24 14:07
[id number] PRN
hypoglycemia
Protocol
Enoxaparin Sodium 30 mg 09/17/24 18:00 09/18/24 17:48
Enoxaparin Sodium 30 Mg/0.3 Ml Syringe SC 10/15/24 17:59 30 mg
QPM NÁGEL Administration
Glucagon 1 mg 09/17/24 14:08
Glucagon 1 Mg Vial IM 10/15/24 14:07
PRN PRN
hypoglycemia
Protocol
Insulin Aspart 0 units 09/17/24 16:30 09/19/24 07:42
Insulin Aspart Low Resistance 300 Units/3 Ml Pen.Injctr SC 10/15/24 16:29 Not Given
AC ÁNGEL
Protocol
Sodium Bicarbonate 650 mg 09/18/24 16:00 09/19/24 08:23
Sodium Bicarbonate 650 Mg Tablet PO 10/16/24 15:59 650 mg
TID ÁNGEL Administration
Sodium Chloride 0 flush 09/17/24 15:00
Sodium Chloride 0.9% (Flush) Syringe IV 10/15/24 14:59
PER PROTOCOL ÁNGEL
Tramadol HCl 25 mg 09/17/24 14:09 09/19/24 02:40
Tramadol Hcl 50 Mg Tablet PO 10/15/24 14:08 25 mg
TIDPRN PRN Administration
severe pain
Review of Systems
-
12 point review of systems negative with the exception of those systems reviewed in HPI
Physical Exam
-
Physical Exam
General: No Apparent Distress, Conversant and Appears Chronically Ill
HEENT: NormoCephalic, Anicteric, Moist mucous membranes, Atraumatic, No Ptosis, Nose Appears Normal and Ears Appear Normal
Respiratory: Clear
Cardiac: S1/S2 and Regular Rhythm; No Murmur or Rub
GI: Soft, Non Distended, Normal Bowel Sounds and Tender (RUQ ); No Organomegaly
Rectal: Deferred by Provider
Musculoskeletal: No Cyanosis and No Edema
Skin: Warm; No Rash
Neuro: Awake, Alert, Oriented, AO x 3, No Motor Deficits and Nonfocal/grossly intact
Psych: Calm
Labs
Lab Results
WBC 7.5 10^3/uL (4.8-10.8) 09/19/24 06:52
RBC 4.99 10^6/uL (4.70-6.10) 09/19/24 06:52
Hgb 13.5 g/dL (13.0-18.0) 09/19/24 06:52
Hct 41.8 % (39.0-52.0) 09/19/24 06:52
MCV 83.8 fL (80.0-94.0) 09/19/24 06:52
MCH 27.1 pg (27.0-31.0) 09/19/24 06:52
MCHC 32.3 g/dL (33.0-37.0) L 09/19/24 06:52
RDW 18.7 % (11.5-14.5) H 09/19/24 06:52
Plt Count 97 10^3/uL (130-400) L 09/19/24 06:52
MPV 12.4 fL (7.4-10.4) H 09/19/24 06:52
Abs Immat Gran (auto) 0.0 10^3/uL (0-0.05) 09/19/24 06:52
Absolute Neuts (auto) 5.4 10^3/uL (1.4-6.5) 09/19/24 06:52
Absolute Lymphs (auto) 1.3 10^3/uL (1.2-3.4) 09/19/24 06:52
Absolute Monos (auto) 0.7 10^3/uL (0.1-0.6) H 09/19/24 06:52
Absolute Eos (auto) 0.0 10^3/uL (0-0.7) 09/19/24 06:52
Absolute Basos (auto) 0.0 10^3/uL (0-0.2) 09/19/24 06:52
Immature Gran % 0.4 % (0-0.5) 09/19/24 06:52
Neutrophils % 72.1 % (42.2-75.2) 09/19/24 06:52
Lymphocytes % 17.3 % (20.5-51.1) L 09/19/24 06:52
Monocytes % 9.5 % (1.7-9.3) H 09/19/24 06:52
Eosinophils % 0.4 % (0-6) 09/19/24 06:52
Basophils % 0.3 % (0-2) 09/19/24 06:52
Creatinine 1.3 mg/dL (0.7-1.3) 09/19/24 06:52
Vital Signs
Vital Signs
Temp Pulse Resp BP Pulse Ox
98.3 F 56 16 135/62 96
09/19/24 08:10 09/19/24 08:10 09/19/24 08:10 09/19/24 08:10 09/19/24 08:10
--- NOTE | 2024-09-19 10:47 | W.PN.HOSP.TC ---
Addendum entered and electronically signed by Morales Mccain MD 09/19/24 14:39:
Moderate protein caloric malnutrition of chronic illness
Original Note:
Today's Communication/Plan
-
Onc/IRAD eval
imodium
cont po bicarb
trend bmp
Assessment / Plan
Assessment / Plan
General: No Apparent Distress, Comfortable, Conversant and Appears Chronically Ill
HEENT: NormoCephalic, Anicteric, Moist mucous membranes, Atraumatic, No Ptosis, Nose Appears Normal and Ears Appear Normal
Respiratory: Clear
Cardiac: S1/S2 and Regular Rhythm; No Murmur or Rub
GI: Soft, Non Distended, Normal Bowel Sounds and Tender (RUQ ); No Organomegaly
Rectal: Deferred by Provider
Musculoskeletal: No Cyanosis and No Edema
Skin: Warm; No Rash
Neuro: Awake, Alert, Oriented, AO x 3, No Motor Deficits and Nonfocal/grossly intact
Psych: Calm
#Weakness likely secondary to dehydration secondary to diarrhea
#Metabolic acidosis secondary to diarrhea
Negative for C. difficile and norovirus
Low residue diet
PT and OT evaluation
imodium x 1 dose
Check orthostatics
Encourage p.o. intake
GI recs
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
#Weight loss likely secondary to suspected malignancy
Awaiting cancer tumor marker
GI recommended against flex sig
Dietary eval
CEA at 18
AFP and CA 19-19 pending
Onc consulted-?liver Bx. Will consult IRAD.
# Acute kidney injury on chronic kidney disease likely stage II versus 3
Hold HCTZ and triamterene
Status post bicarbonate drip. Acidosis improving. Start patient p.o. bicarb. Encourage po intake.
Bladder scan straight cath protocol
Recent CT abdomen pelvis was negative for hydronephrosis
Trend creatinine daily
Mild improvement in creatinine to 1.5 today.
#Primary hypertension
Continue with Norvasc and atenolol. BP well controlled overall.
Holding triamterene and HCTZ and terazosin for now.
Diabetes mellitus type 2
Hold metformin
Insulin sliding scale and Accu-Cheks for now
A1c is 6.2
Thrombocytopenia
Unclear chronicity
Trend for now
Onc consulted.
Hyperlipidemia
Continue statin
BPH
Monitor urinary output
DVT prophylaxis with Lovenox
PT/OT
Anticipated Discharge: > 48 hours
Subjective/Interval History
-
Date of Service: September 19, 2024
States abd pain is positional
slept well last night
having intermittent loose stools
Objective Data
-
Labs:
Laboratory Results
09/19/24
06:52
WBC 7.5
Hgb 13.5
Hct 41.8
Plt Count 97 L
Sodium 134 L
Potassium 3.7
Chloride 104
Carbon Dioxide 17 L
BUN 42 H
Creatinine 1.3
Glucose 93
Calcium 8.3 L
Total Bilirubin 1.5 H
AST 147 H
ALT 93 H
Alkaline Phosphatase 386 H
Vital Signs:
Vital Signs
Temp Pulse Resp BP Pulse Ox
98.3 F 56 16 135/62 96
09/19/24 08:10 09/19/24 08:10 09/19/24 08:10 09/19/24 08:10 09/19/24 08:10
I&O
09/18/24 09/19/24 09/20/24
06:59 06:59 06:59
Intake Total 460 / 460 1200 / 1200
Output Total 960 / 960
Balance 460 / 460 240 / 240
[2024-09-19] MEDS: IMODIUM 4 MG PO (11:55)
[2024-09-19 12:26] LABS: Glucose - Point of Care 102 mg/dl (70-99)
--- NOTE | 2024-09-19 13:45 | CM ---
Patient seen bedside.
PT recommending home with VN.
[facility] following, will need RW for d/c.
Patient states he has a RW walker at home, but that is his spouses.
Plan: home with [facility] once medically stable, son will transport.
[2024-09-19 16:13] VITALS: BP 112/44
[2024-09-19 16:30] LABS: Glucose - Point of Care 151 mg/dl (70-99)
[2024-09-19] MEDS: NOVOLOG FLEXPEN-LOW RESISTANCE 1 UNITS SC (16:44)
[2024-09-19 18:09] VITALS: BP 125/61
[2024-09-19 21:13] LABS: Glucose - Point of Care 137 mg/dl (70-99)
[2024-09-19 21:40] LABS: AFP Male/Tumor Marker > 9950 ng/ml
[2024-09-19 23:18] VITALS: BP 125/55
[2024-09-20] VITALS (15 sets, daily range): BP systolic 45–141; BP diastolic 47–60
[2024-09-20 05:37] LABS: Glucose - Point of Care 102 mg/dl (70-99)
[2024-09-20 08:29] LABS: % Basophils 0.3 % (0-2); % Eosinophils 0.1 % (0-6); % Immature Granulocytes 0.6 % (0-0.5); % Lymphocytes 19.2 % (20.5-51.1); % Neutrophils 70.8 % (42.2-75.2); Absolute Immature Granulocytes 0.1 10^3/uL (0-0.05); Absolute Lymphocytes 1.7 10^3/uL (1.2-3.4); Absolute Monocytes 0.8 10^3/uL (0.1-0.6); Absolute Neutrophils 6.3 10^3/uL (1.4-6.5); Hematocrit 44.7 % (39.0-52.0); Hemoglobin 14.8 g/dL (13.0-18.0); Mean Corp Hgb Conc. 33.1 g/dL (33.0-37.0); Mean Corpuscular Hgb 27.3 pg (27.0-31.0); Mean Corpuscular Volume 82.5 fL (80.0-94.0); Nucleated Red Blood Cells % 0 % (-); Platelet Count 117 10^3/uL (130-400); Red Blood Cell Count 5.42 10^6/uL (4.70-6.10); Red Cell Dist. Width 19.4 % (11.5-14.5); White Blood Cell Count 8.9 10^3/uL (4.8-10.8)
[2024-09-20 08:45] LABS: ALT (SGPT) 88 U/L (0-50); AST (SGOT) 111 U/L (17-59); Albumin 3.1 g/dl (3.5-5.0); Alkaline Phosphatase 403 U/L (38-126); Blood Urea Nitrogen 39 mg/dl (9-20); Calcium 8.7 mg/dl (8.4-10.2); Carbon Dioxide 21 mmol/L (22-30); Chloride 102 mmol/L (98-107); Estimated Creatinine Clearance 42 ml/min; Glucose 107 mg/dl (70-99); INR 1.22; PT 15.7 Sec (11.4-14.6); Sodium 135 mmol/L (135-145); Total Bilirubin 1.6 mg/dl (0.2-1.3); Total Protein 5.7 g/dl (6.3-8.2); eGFR 53.84
[2024-09-20 09:51] LABS: Folate 4.8 ng/ml (2.76-20); Vitamin B12 810 pg/ml (239-931)
[2024-09-20] MEDS: NORVASC 10 MG PO (10:09)
[2024-09-20] MEDS: SODIUM BICARBONATE 650 MG PO ×3 (10:09→20:22)
[2024-09-20] MEDS: TENORMIN 50 MG PO ×2 (10:09→20:22)
[2024-09-20] MEDS: LIPITOR 10 MG PO (10:09)
[2024-09-20] MEDS: FLUSH (NSS) 1 FLUSH IV (10:11)
[2024-09-20 11:12] LABS: CA 19-9 27 U/mL (<=35)
--- NOTE | 2024-09-20 11:20 | W.PN.HOSP.TC ---
Today's Communication/Plan
-
Liver biopsy by [facility]
Lovenox and aspirin has been held
Trend hemoglobin postprocedure
Creatinine holding
Bar acidosis improving
Imodium as needed
Assessment / Plan
Assessment / Plan
General: No Apparent Distress, Comfortable, Conversant and Appears Chronically Ill
HEENT: NormoCephalic, Anicteric, Moist mucous membranes, Atraumatic, No Ptosis, Nose Appears Normal and Ears Appear Normal
Respiratory: Clear
Cardiac: S1/S2 and Regular Rhythm; No Murmur or Rub
GI: Soft, Non Distended, Normal Bowel Sounds and Tender (RUQ ); No Organomegaly
Rectal: Deferred by Provider
Musculoskeletal: No Cyanosis and No Edema
Skin: Warm; No Rash
Neuro: Awake, Alert, Oriented, AO x 3, No Motor Deficits and Nonfocal/grossly intact
Psych: Calm
#Weakness likely secondary to dehydration secondary to diarrhea
#Metabolic acidosis secondary to diarrhea
Negative for C. difficile and norovirus
Low residue diet
PT and OT evaluation
imodium x 1 dose
Check orthostatics
Encourage p.o. intake
GI recs
#Malignancy with mets to the liver with pulmonary nodules-unknown primary
#Weight loss likely secondary to suspected malignancy
#RUQ pain 2/2 liver lesion
AFP tumor marker >9950.
GI recommended against flex sig
Dietary eval
CEA at 18
AFP and CA 19-19 pending
Onc consulted-and recommended Liver Biopsy. [facility] consulted.
# Acute kidney injury on chronic kidney disease likely stage II versus 3
DCed HCTZ and triamterene
Status post bicarbonate drip. Acidosis improving. Start patient p.o. bicarb. Encourage po intake.
Bladder scan straight cath protocol
Recent CT abdomen pelvis was negative for hydronephrosis
Trend creatinine daily
Acidosis improving
Improvement in creatinine to 1.3 today.
#Primary hypertension
Continue with Norvasc and atenolol. BP well controlled overall.
Holding triamterene and HCTZ and terazosin for now.
Diabetes mellitus type 2
Hold metformin
Insulin sliding scale and Accu-Cheks for now
A1c is 6.2
Thrombocytopenia
Unclear chronicity ?due to malignancy
Trend for now
Onc consulted.
Moderate protein caloric malnutrition of chronic illness
Dietary eval
Hyperlipidemia
Continue statin
BPH
Monitor urinary output
DVT prophylaxis scds as plan for liver bx.
PT/OT
Anticipated Discharge: Within 24 hours
Subjective/Interval History
-
Date of Service: September 20, 2024
states decrease in bowel movements
no RUQ abd pain this morning
Objective Data
-
Labs:
Laboratory Results
09/20/24
08:00
WBC 8.9
Hgb 14.8
Hct 44.7
Plt Count 117 L D
PT 15.7 H
INR 1.22
Sodium 135
Potassium 4.0
Chloride 102
Carbon Dioxide 21 L
BUN 39 H
Creatinine 1.3
Glucose 107 H
Calcium 8.7
Total Bilirubin 1.6 H
AST 111 H
ALT 88 H
Alkaline Phosphatase 403 H
Vital Signs:
Vital Signs
Temp Pulse Resp BP Pulse Ox
98.0 F 57 18 130/51 96
09/20/24 07:00 09/20/24 07:00 09/20/24 07:00 09/20/24 07:00 09/20/24 07:00
I&O
09/19/24 09/20/24 09/21/24
06:59 06:59 06:59
Intake Total 1200 / 1200 480 / 480
Output Total 960 / 960 400 / 400
Balance 240 / 240 80 / 80
Data Reviewed
-
Total Time Spent with Patient (in minutes): 55
[2024-09-20 13:13] LABS: Glucose - Point of Care 87 mg/dl (70-99)
--- NOTE | 2024-09-20 13:30 | PTCARENOTE ---
received from IR post liver biopsy- transferred to bed. patient informed of bedrest and head elevation restrictions. voiced understanding. bandaid dry and intact to right abdomen. no hematoma noted . vitals noted. call mcleod in reach. plan of
care on gong.
--- NOTE | 2024-09-20 13:38 | CM ---
Soy had a liver biopsy done today. PT/OT will try to see him on Monday. Recommendation thus far is for discharge to home with a walker. RX for walker was requested by [facility] liaison; PT will issue the walker.
Plan: Discharge to home with VN once medically stable, son will transport.
[2024-09-20 16:35] LABS: Glucose - Point of Care 133 mg/dl (70-99)
[2024-09-20 21:28] LABS: Glucose - Point of Care 133 mg/dl (70-99)
[2024-09-21] MEDS: ULTRAM 25 MG PO (02:41)
[2024-09-21 03:27] VITALS: BP 121/53
[2024-09-21 07:26] LABS: Glucose - Point of Care 97 mg/dl (70-99)
[2024-09-21 07:30] VITALS: BP 117/54
[2024-09-21 07:50] LABS: ALT (SGPT) 68 U/L (0-50); AST (SGOT) 83 U/L (17-59); Albumin 2.7 g/dl (3.5-5.0); Alkaline Phosphatase 386 U/L (38-126); Blood Urea Nitrogen 37 mg/dl (9-20); Calcium 8.2 mg/dl (8.4-10.2); Carbon Dioxide 21 mmol/L (22-30); Chloride 104 mmol/L (98-107); Estimated Creatinine Clearance 45 ml/min; Glucose 105 mg/dl (70-99); Potassium 3.8 mmol/L (3.5-5.1); Sodium 136 mmol/L (135-145); Total Bilirubin 1.4 mg/dl (0.2-1.3); Total Protein 5.2 g/dl (6.3-8.2); eGFR 59.26
[2024-09-21 09:19] LABS: % Basophils 0.4 % (0-2); % Eosinophils 0.5 % (0-6); % Immature Granulocytes 0.5 % (0-0.5); % Lymphocytes 17.8 % (20.5-51.1); % Monocytes 10.1 % (1.7-9.3); % Neutrophils 70.7 % (42.2-75.2); Absolute Lymphocytes 1.5 10^3/uL (1.2-3.4); Absolute Monocytes 0.8 10^3/uL (0.1-0.6); Absolute Neutrophils 5.8 10^3/uL (1.4-6.5); Hematocrit 43.9 % (39.0-52.0); Hemoglobin 13.9 g/dL (13.0-18.0); Mean Corp Hgb Conc. 31.7 g/dL (33.0-37.0); Mean Corpuscular Hgb 26.7 pg (27.0-31.0); Mean Corpuscular Volume 84.3 fL (80.0-94.0); Nucleated Red Blood Cells % 0 % (-); Platelet Count 106 10^3/uL (130-400); Red Blood Cell Count 5.21 10^6/uL (4.70-6.10); Red Cell Dist. Width 19.7 % (11.5-14.5); White Blood Cell Count 8.2 10^3/uL (4.8-10.8)
[2024-09-21] MEDS: TENORMIN 50 MG PO (09:27)
[2024-09-21] MEDS: LIPITOR 10 MG PO (09:28)
[2024-09-21] MEDS: SODIUM BICARBONATE 650 MG PO ×2 (09:28→16:45)
[2024-09-21] MEDS: NORVASC 10 MG PO (09:28)
[2024-09-21 12:12] LABS: Glucose - Point of Care 124 mg/dl (70-99)
--- NOTE | 2024-09-21 12:19 | W.PN.HOSP.TC ---
Today's Communication/Plan
-
f/u bx results with oncology
PT f/u
tentative dc later today
Assessment / Plan
Assessment / Plan
General: No Apparent Distress, Comfortable, Conversant and Appears Chronically Ill
HEENT: NormoCephalic, Anicteric, Moist mucous membranes, Atraumatic, No Ptosis, Nose Appears Normal and Ears Appear Normal
Respiratory: Clear
Cardiac: S1/S2 and Regular Rhythm; No Murmur or Rub
GI: Soft, Non Distended, Normal Bowel Sounds and Tender (RUQ ); No Organomegaly
Rectal: Deferred by Provider
Musculoskeletal: No Cyanosis and No Edema
Skin: Warm; No Rash
Neuro: Awake, Alert, Oriented, AO x 3, No Motor Deficits and Nonfocal/grossly intact
Psych: Calm
#Weakness likely secondary to dehydration secondary to diarrhea
#Metabolic acidosis secondary to diarrhea
Negative for C. difficile and norovirus
Low residue diet
PT and OT evaluation
imodium x 1 dose
Encourage p.o. intake
Diarrhea resolved
#Malignancy with mets to the liver with pulmonary nodules-unknown primary
#Weight loss likely secondary to suspected malignancy
#RUQ pain and transaminitis 2/2 liver lesion
AFP tumor marker >9950.
GI recommended against flex sig
Dietary eval
CEA at 18
Onc consulted-and recommended Liver Biopsy. IRAD consulted. s/p liver biopsy on 09/20. Has f/u with Dr. Sanchez on 10/15 per pt.
# Acute kidney injury on chronic kidney disease likely stage II versus 3
DCed HCTZ and triamterene
Status post bicarbonate drip. Acidosis improving. Start patient p.o. bicarb. Encourage po intake.
Bladder scan straight cath protocol
Recent CT abdomen pelvis was negative for hydronephrosis
Trend creatinine daily
Acidosis improving
Improvement in creatinine to 1.2 today.
#Primary hypertension
Continue with Norvasc and atenolol. BP well controlled overall.
Holding triamterene and HCTZ and terazosin for now.
Diabetes mellitus type 2
Hold metformin
Insulin sliding scale and Accu-Cheks for now
A1c is 6.2
Thrombocytopenia
Unclear chronicity ?due to malignancy
Trend for now
Onc consulted.
Moderate protein caloric malnutrition of chronic illness
Dietary eval
Hyperlipidemia
Continue statin
BPH
Monitor urinary output
DVT prophylaxis scds as plan for liver bx.
PT/OT-await PT eval. Plan for tentative dc later today.
Anticipated Discharge: Today
Subjective/Interval History
-
Date of Service: September 21, 2024
tolerating diet
intermittent RUQ pain
no diarrhea
Objective Data
-
Labs:
Laboratory Results
09/21/24 09/21/24
06:17 08:36
WBC 8.2
Hgb 13.9
Hct 43.9
Plt Count 106 L
Sodium 136
Potassium 3.8
Chloride 104
Carbon Dioxide 21 L
BUN 37 H
Creatinine 1.2
Glucose 105 H
Calcium 8.2 L
Total Bilirubin 1.4 H
AST 83 H
ALT 68 H
Alkaline Phosphatase 386 H
Vital Signs:
Vital Signs
Temp Pulse Resp BP Pulse Ox
97.4 F 56 16 117/54 96
09/21/24 07:30 09/21/24 09:27 09/21/24 07:30 09/21/24 07:30 09/21/24 07:30
I&O
09/20/24 09/21/24 09/22/24
06:59 06:59 06:59
Intake Total 480 / 480 240 / 240
Output Total 400 / 400
Balance 80 / 80 240 / 240
[2024-09-21 15:00] VITALS: BP 122/57; PULSE 64; O2SAT 96
--- NOTE | 2024-09-21 15:04 | W.DCSUMMARY ---
Discharge Summary
Discharge Data
Date of Admission: 09/17/24
Date of Discharge: 09/21/24
-
Pending Results: Yes
Additional Pending Results:
liver biopsy results with primary oncologist Dr. Sancehz
Hospital Course
84-year-old male past medical history of CKD, hypertension, diabetes mellitus, recently diagnosed liver and lung lesion with unknown primary was presenting from home with weakness. Patient was also complaining of diarrhea. Stool studies were
checked was found to be negative. Gastroenterology was consulted. Patient recently saw her outpatient oncologist who recommended for flex sig. 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
Cystic fluid collection again was adjacent to the colon and not intraluminal making this a low yield place for diagnosis. Patient also with severe metabolic acidosis and received bicarbonate IV fluids. Patient acidosis continued to improve. IV
fluids were discontinued and started on p.o. bicarbonate. Diarrhea resolved. Oncology was consulted and consulted interventional radiology for liver biopsy. Postprocedure patient did well and was working with physical and Occupational Therapy.
Home VN was recommended. Patient already has an appointment set up with his oncologist Dr. Sanchez and he understands and verbalized understanding follow-up the liver biopsy results. Of note patient AFP marker was elevated which was informed to
the patient it could be related to liver lesion however wait for final confirmation from the biopsy result.
Discharge Plan
-
Patient Disposition: Home with Home Care
Discharge Diagnosis/Procedures: Weakness likely secondary dehydration secondary to diarrhea
Right upper quadrant pain secondary to liver lesion
Status post biopsy of the liver
Acute kidney injury on chronic kidney disease
Condition: Fair
Diet: Diabetic, Carb Controlled
Activity: With assistance and As tolerated
Driving Restrictions: Not until seen by your Dr
Activity Restrictions/Additional Instructions:
Follow-up liver biopsy results with your primary oncologist.
Referrals:
[facility] [Outside]
David Vidal MD [Family Provider] - in less than 1 week
Additional Discharge Medication Instructions: Triamterene-hydrochlorothiazide was discontinued.
Prescriptions:
New
sodium bicarbonate 650 mg Tablet
650 mg PO TID 5 Days Qty: 15 0RF
Continued
terazosin 10 mg Capsule
10 mg PO HS
aspirin 81 mg Tablet,Delayed Release (Dr/Ec)
81 mg PO DAILY
acetaminophen 500 mg Tablet
1,000 mg PO HS PRN (Reason: mild pain)
amlodipine 10 mg Tablet
10 mg PO DAILY
simvastatin 20 mg Tablet
20 mg PO DAILY
metformin 1,000 mg Tablet
1,000 mg PO BID
calcium carbonate [Tums] 200 mg calcium (500 mg) Tablet,Chewable
200 mg PO DAILY PRN (Reason: gerd)
atenolol 50 mg Tablet
50 mg PO BID
omega 6-ebr-shx-fish oil [Fish Oil] 1,000 (120-180) mg Capsule
4 cap PO DAILY
Discontinued
triamterene-hydrochlorothiazid 37.5-25 mg Capsule
1 cap PO DAILY
Discharge Orders:
Discharge Patient (As Directed); Ordered 09/21/24
Ordered By: Morales Mccain
Discharge Date and Time
Discharge Date/Time: 09/21/24 17:22
Print Language: ANGUILLAN
[2024-09-21 15:15] VITALS: BP 124/58
--- NOTE | 2024-09-21 15:29 | CM ---
Talked to PT after session today. Patient and son are confident he will manage steps at home. Rolling walker script obtained and issued by PT.
Patient to have [facility] at home.
[2024-09-21 15:30] VITALS: BP 122/57; PULSE 64
== END 2024-09-21 17:22 | disposition home health service (06) | DRG 436 ==
LOC: 4 EAST ACU 11:34
PROVIDERS: Nurse Practitioner; Nurse Practitioner Acute Care; Physician Assistant; Radiology Vascular & Interventional Radiology; ADMITTING PHYSICIAN Hospitalist; CONSULT PHYSICIAN Internal Medicine Gastroenterology; CONSULT PHYSICIAN Internal Medicine Hematology & Oncology; EMERGENCY PHYSICIAN Emergency Medicine; FAMILY PHYSICIAN Family Medicine
PROC: 0FB13ZX Excision of Right Lobe Liver, Percutaneous Approach, Diagnostic (ICD-10-PCS; 2024-09-20)
DX: C78.7 Secondary malignant neoplasm of liver and intrahepatic bile duct (principal); C78.00 Secondary malignant neoplasm of unspecified lung; E44.0 Moderate protein-calorie malnutrition; E87.20 Acidosis, unspecified; N17.9 Acute kidney failure, unspecified; C80.1 Malignant (primary) neoplasm, unspecified; E11.22 Type 2 diabetes mellitus with diabetic chronic kidney disease; I12.9 Hypertensive chronic kidney disease with stage 1 through stage 4 chronic kidney disease, or unspecified chronic kidney disease; N18.2 Chronic kidney disease, stage 2 (mild); N40.0 Benign prostatic hyperplasia without lower urinary tract symptoms; E78.00 Pure hypercholesterolemia, unspecified; E86.0 Dehydration; R19.7 Diarrhea, unspecified; D69.59 Other secondary thrombocytopenia; K21.9 Gastro-esophageal reflux disease without esophagitis; Z68.21 Body mass index [BMI] 21.0-21.9, adult; Z88.2 Allergy status to sulfonamides; Z88.8 Allergy status to other drugs, medicaments and biological substances; Z80.0 Family history of malignant neoplasm of digestive organs; Z80.42 Family history of malignant neoplasm of prostate; Z79.82 Long term (current) use of aspirin; Z79.84 Long term (current) use of oral hypoglycemic drugs; Z79.899 Other long term (current) drug therapy
CPT/HCPCS: 88307; 47000; 76942; 80053; 82105; 82378; 82607; 82728; 82746; 82962; 83036; 83540; 83550; 83735; 84443; 85025; 85610; 86301; 87045; 87046; 87324; 87427; 87449; 87798; 88333; 88341; 88342; 93005; 96360; 96361; 97116; 97163; 97167; 97530; 97535; 99152; 99285

== ENCOUNTER 2024-09-30 05:07 | Inpatient (IN) | payer OTHER, SELFPAY ==
[2024-09-30] VITALS (19 sets, daily range): BP systolic 71–109; BP diastolic 40–56; PULSE 54–59; BMI 22.6; BMI 22.1
[2024-09-30 02:07] LABS: % Basophils 0.3 % (0-2); % Eosinophils 0.4 % (0-6); % Immature Granulocytes 0.6 % (0-0.5); % Lymphocytes 18.1 % (20.5-51.1); % Monocytes 6.8 % (1.7-9.3); % Neutrophils 73.8 % (42.2-75.2); Absolute Immature Granulocytes 0.1 10^3/uL (0-0.05); Absolute Lymphocytes 1.6 10^3/uL (1.2-3.4); Absolute Monocytes 0.6 10^3/uL (0.1-0.6); Absolute Neutrophils 6.6 10^3/uL (1.4-6.5); Hematocrit 40.4 % (39.0-52.0); Mean Corp Hgb Conc. 32.2 g/dL (33.0-37.0); Mean Corpuscular Hgb 26.9 pg (27.0-31.0); Mean Corpuscular Volume 83.5 fL (80.0-94.0); Mean Platelet Volume 12.5 fL (7.4-10.4); Nucleated Red Blood Cells % 0 % (-); Platelet Count 104 10^3/uL (130-400); Red Blood Cell Count 4.84 10^6/uL (4.70-6.10); Red Cell Dist. Width 20.5 % (11.5-14.5); White Blood Cell Count 8.9 10^3/uL (4.8-10.8)
[2024-09-30] MEDS: NSS 1000 IV ×2 (02:15→03:24)
[2024-09-30 02:21] LABS: ALT (SGPT) 58 U/L (0-50); AST (SGOT) 120 U/L (17-59); Albumin 2.8 g/dl (3.5-5.0); Alkaline Phosphatase 881 U/L (38-126); Blood Urea Nitrogen 50 mg/dl (9-20); Calcium 8.5 mg/dl (8.4-10.2); Carbon Dioxide 16 mmol/L (22-30); Chloride 100 mmol/L (98-107); Estimated Creatinine Clearance 36 ml/min; Glucose 118 mg/dl (70-99); Potassium 4.7 mmol/L (3.5-5.1); Sodium 131 mmol/L (135-145); Total Bilirubin 1.7 mg/dl (0.2-1.3); Total Protein 5.3 g/dl (6.3-8.2); eGFR 41.96
--- NOTE | 2024-09-30 02:26 | ED.GENMED ---
History of Present Illness
General
Chief Complaint: Fall
Source: patient and family (His son)
Exam Limitations: none
Time Seen by Provider: 09/30/24 02:10
Nursing documentation reviewed up to this point in time: agreed with
History of Present Illness
History of Present Illness:
Pleasant 84-year-old male presents to the emergency department a fall from weakness. He states he got up and his legs gave out. Patient lives at home with his who suffers from dementia. He does have a caregiver to help both of them. His son
lives next-door. Son states that patient has been dehydrated in the past. Patient has been unable to eat or drink normally since his discharge from the hospital just over a week ago. Patient is being treated for liver lesions by Dr. Sinclair,
[facility]. They do not know where the primary is but they are finding metastases. Son feels that patient is too weak to function on his own at home and may need placement in a rehab facility. Patient complains of no pain except
for sporadic pain over his liver biopsy site.
Vital signs are stable. Patient not hypoxic
Nursing note reviewed. I agree with nursing documentation up to this point in time.
Home Meds and allergies reviewed.
NUMBER AND COMPLEXITY OF PROBLEMS ADDRESSED AT THE ENCOUNTER
� Chronic conditions affecting care: Liver metastases, diabetes, hypertension, failure to thrive
� Acute Exacerbation and/or Progression of Chronic Illness:
� Differential Diagnosis includes: Weakness due to dehydration secondary to inability to drink normally.
AMOUNT AND/OR COMPLEXITY OF DATA TO BE REVIEWED AND ANALYZED
I performed an independent evaluation of the following and my interpretation is:
EKG:
Pulse Ox: Not Hypoxic
Home Visit Field Care Manager: Sinus Rhythm
CT:
X-rays:
Ultrasound:
Laboratory Studies: Normal white count. Decreased renal function possible due to dehydration
Other:
Review of other/old records:
Clinical information was obtained by an independent historian:
Prescriptions/Medications Considered but not given:
Further testing considered but not performed:
RISK OF COMPLICATIONS AND/OR MORBIDITY OR MORTALITY OF PATIENT MANAGEMENT
Social determinants of health affecting care: Good Social Support
Discussion with other providers:
Escalation of care including admission/observation vs risk of discharge considered: After being observed in the emergency department, patient is stable for discharge.
CRITICAL CARE NOTE:
Total Time (exclusive of procedures):
Update:
Past History
Past History
ED Past Medical History: Other
ED Past Surgical History: Other
Social History
Tobacco: Non-smoker
Review of Systems
Review of Systems
Allergies reviewed?: Yes
Other source history: family
All Other Systems: ROS reviewed and negative except as documented in HPI and ROS
Constitutional: Reports fatigue and sleep disturbance
Skin: Reports other (Skin tear left elbow)
Neurological: Reports weakness; Denies dizzy or headache
Hematologic/Lymphatic: Reports bruising
Phy Exam
General Physical Exam
General Presentation: mild distress
General age: appears older than age
General Skin: warm and dry
General Habitus: cachetic, elderly and failure to thrive
General Mental: alert
General Hydration: dry mucous membranes
ENT Exam
ENT Exam: EOMI and swallowing well
Eye Exam
Eye Exam: PERRL, cornea clear and conjunctiva normal
Cardiovascular Exam
Cardiovascular Exam: regular rate/rhythm, no edema, no murmur and normal peripheral pulses
Pulmonary Exam
Pulmonary Exam: no respiratory distress and generalized wheezing
Gastrointestinal Exam
Gastrointestinal Exam: normal bowel sounds, non tender, soft, no organomegaly, no pulsatile mass and non distended
Neurological Exam
Neurological Exam: alert and oriented x3
Musculoskeletal Exam
Musculoskeletal Exam: full ROM and no edema
Skin Exam
Skin Exam: normal color, warm/dry, no rash and no petechia
Psychiatric Exam
Psychiatric Exam: normal mood/affect
Course
Orders/Labs/Results
Orders:
Orders
09/30/24 01:58
Complete Blood Count/With Diff Urgent
Comprehensive Metabolic Panel Urgent
Abnormal Lab Results
09/30/24
01:58
MCH 26.9 L pg
(27.0-31.0)
MCHC 32.2 L g/dL
(33.0-37.0)
RDW 20.5 H %
(11.5-14.5)
Plt Count 104 L 10^3/uL
(130-400)
MPV 12.5 H fL
(7.4-10.4)
Abs Immat Gran (auto) 0.1 H 10^3/uL
(0-0.05)
Absolute Neuts (auto) 6.6 H 10^3/uL
(1.4-6.5)
Immature Gran % 0.6 H %
(0-0.5)
Lymphocytes % 18.1 L %
(20.5-51.1)
Sodium 131 L mmol/L
(135-145)
Carbon Dioxide 16 L mmol/L
(22-30)
BUN 50 H mg/dl
(9-20)
Creatinine 1.6 H mg/dL
(0.7-1.3)
Glucose 118 H mg/dl
(70-99)
Total Bilirubin 1.7 H mg/dl
(0.2-1.3)
AST 120 H U/L
(17-59)
ALT 58 H U/L
(0-50)
Alkaline Phosphatase 881 H U/L
(38-126)
Total Protein 5.3 L g/dl
(6.3-8.2)
Albumin 2.8 L g/dl
(3.5-5.0)
09/30/24 01:58
09/30/24 01:58
Vital Signs
Initial and Last Documented VS:
Initial Vital Signs
Pulse Resp
64 19
09/30/24 01:42 09/30/24 01:42
Last Documented Vital Signs
Temp Pulse Resp BP Pulse Ox
97.7 F 55 15 93/47 95
09/30/24 01:48 09/30/24 02:15 09/30/24 02:15 09/30/24 02:15 09/30/24 02:15
*Critical Care Note
Total Time (30-74mins, 75-104mins- exclusive of procedures): Not Applicable
ED Attending Note
-
Portions of this chart may have been created with voice recognition software.� Occasional wrong word or��sound alike� substitutions may have occurred due to the inherent limitations of voice recognition software.
Discharge Plan
Departure
Patient Disposition: Admit
Date of Disposition: 09/30/24
Time of Disposition: 02:32
Presentation/result/management discussed w/ accepting MD/DO: Hospitalist
Discharge Problem:
Weakness, Chronic kidney disease, stage 2 (mild), Diarrhea, Fall, Acute hyponatremia
Prescriptions:
No Action
terazosin 10 mg Capsule
10 mg PO HS
aspirin 81 mg Tablet,Delayed Release (Dr/Ec)
81 mg PO DAILY
acetaminophen 500 mg Tablet
1,000 mg PO HS PRN (Reason: mild pain)
amlodipine 10 mg Tablet
10 mg PO DAILY
simvastatin 20 mg Tablet
20 mg PO DAILY
metformin 1,000 mg Tablet
1,000 mg PO BID
calcium carbonate [Tums] 200 mg calcium (500 mg) Tablet,Chewable
200 mg PO DAILY PRN (Reason: gerd)
atenolol 50 mg Tablet
50 mg PO BID
omega 9-iqt-vgv-fish oil [Fish Oil] 1,000 (120-180) mg Capsule
4 cap PO DAILY
Referrals:
David Vidal MD [Family Provider] -
Interventions
Interventions:
*Risk Screen - Suicide Last Done: 09/30/24 01:45
*General Assessment Last Done: 09/30/24 01:45
*Neglect/Abuse Screening Last Done: 09/30/24 01:45
ED- Fall Risk Assessment Last Done: 09/30/24 02:00
*ED COVID-19 Vaccine History Last Done: 09/30/24 01:45
ED-Musculoskeletal Assessment Last Done: 09/30/24 02:08
ED- Neurological Assessment Last Done: 09/30/24 01:46
ED-Skin Assessment Last Done: 09/30/24 02:09
Discharge Date and Time
Print Language: ITALIAN
--- NOTE | 2024-09-30 04:46 | HPS.HSE ---
Family Physician
-
Family Physician: David Vidal
Chief Complaint
-
Weakness / Fall
History of Present Illness
Patient is an 84y M with PMH significant for hypertension, DM-II and metastatic malignancy of uncertain primary who presents to ED complaining of weakness and fall this evening. Patient was hospitalized 09/17 - 09/21 for weakness, weight loss and
diarrhea. He was noted to have scattered pulmonary nodules and liver lesion c/w metastatic disease without certain primary. He underwent liver biopsy on 09/20 - results of which are still pending. He was treated with Imodium, IVFs and
supplemental bicarb with improvement in his diarrhea, labs and weakness.
Patient states that he has again felt poorly since his return home. He states that the diarrhea continues - though not quiet as frequently as before.
He has very poor appetite and has had worsening weakness since his return home.
This evening he was walking back from the bathroom when his legs 'gave out' and he collapsed to the floor. He denies any injury or head trauma. No LOC / syncope.
He has no current complaints of pain.
Patient also notes significant LE edema which is new since his hospital discharge.
Medical History
Past Medical History
Past Medical History: Reports Other
Additional Past Medical History:
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
Primary hypertension
Diabetes mellitus
Hyperlipidemia
CKD stage II
BPH
Past Surgical History: Reports Other
Additional Past Surgical History:
Liver Biopsy (09/20/24)
Social History
Tobacco: Non-smoker
Drug: None
Family History
Family History: Cancer (Colon cancer-mother )
Allergies / Home Medications
Allergies reflects when Allergies were last updated in [facility].
Home Medications with original date entered in [facility]
Allergy/Medication List:
Allergies
Allergy/AdvReac Type Severity Reaction Status Date / Time
lisinopril Allergy Unknown Verified 09/30/24 01:44
Sulfa (Sulfonamide Allergy Nausea / Verified 09/30/24 01:44
Antibiotics) Vomiting
Home Medications
acetaminophen 500 mg tablet 1,000 mg PO HS PRN mild pain 09/17/24
amlodipine 10 mg tablet 10 mg PO DAILY Blood Pressure 09/17/24
aspirin 81 mg tablet,delayed release 81 mg PO DAILY Blood Clot Prevention/Tx 09/17/24
atenolol 50 mg tablet 50 mg PO BID Blood Pressure 09/17/24
calcium carbonate (Tums) 200 mg PO DAILY PRN gerd 09/17/24
metformin 1,000 mg tablet 1,000 mg PO BID Diabetes 09/17/24
omega 4-vol-oao-fish oil 1,000 mg (120 mg-180 mg) capsule (Fish Oil) 4 cap PO DAILY Supplement 09/17/24
simvastatin 20 mg tablet 20 mg PO DAILY High Cholesterol 09/17/24
terazosin 10 mg capsule 10 mg PO HS Urinary Issue 09/17/24
Review of Systems
-
History Source: Patient
A 12 point ROS was completed and negative except as noted: Yes
Constitutional: Reports Fatigue; Denies Fever or Chills
EENT: Denies Sore Throat
Respiratory: Reports Trouble Breathing (with activity); Denies Cough
Cardiac: Denies Chest Pain or Palpitations
Abdomen/GI: Reports Diarrhea; Denies Abdominal Pain, Nausea, Vomiting, Bloody Stools or Black Stools
: Denies Dysuria or Frequency
Musculoskeletal: Reports Edema; Denies Joint Pain
Neurological: Reports Dizzy and Weakness; Denies Headache
Psych: Denies Depression or Anxiety
Physical Exam
Vital Signs
Vital Signs
Temp Pulse Resp BP Pulse Ox
97.7 F 47 12 104/43 94
09/30/24 01:48 09/30/24 04:15 09/30/24 04:15 09/30/24 04:15 09/30/24 04:00
Physical Exam
General: Other (84y M in no acute distress.)
HEENT: Other (Dry MM. Neck supple.)
Respiratory: Clear; No Wheezes, Rales or Rhonchi
Cardiac: S1/S2 and Regular Rhythm; No Murmur
GI: Soft, Non Tender, Non Distended and Normal Bowel Sounds
Musculoskeletal: No Clubbing, No Cyanosis and Other (2-3+ pitting edema to the posterior thighs - more pronounced at feet / ankles.)
Neuro: AO x 3 and Nonfocal/grossly intact
Laboratory Results
-
09/30/24 01:58
09/30/24 01:58
Laboratory Results
Total Bilirubin 1.7 mg/dl (0.2-1.3) H 09/30/24 01:58
AST 120 U/L (17-59) H 09/30/24 01:58
ALT 58 U/L (0-50) H 09/30/24 01:58
Alkaline Phosphatase 881 U/L (38-126) H 09/30/24 01:58
Impression/Plan
-
A/P: Patient is an 84y M with PMH significant for metastatic malignancy of uncertain primary, hypertension and DM-II who presents to ED complaining of continued diarrhea, weakness and fall at home.
Weakness / Fall at Home
- Admit for further evaluation and treatment.
- Likely multifactorial due to deconditioning, ongoing volume losses, underlying malignancy, etc, etc.
- PT / OT evaluations.
- Address individual issues as noted below.
- Case Management eval for discharge planning / possible placement.
TREVIN
Mild Hyponatremia
Metabolic Acidosis
- Recurrent TREVIN likely pre-renal in origin due to volume losses.
- Hold antihypertensive medications / avoid hypotension.
- Hold further IVFs for now given significant edema.
- May benefit from diuresis if BP improves / edema persists.
- Restart oral bicarbonate supplementation.
- Improve diarrhea / reduce volume losses as noted below.
- Stop metformin and remain off of this at discharge.
Chronic Diarrhea
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
- Imodium ATC and titrate for effect.
- Hold metformin and would not resume this given recurrent acidosis, diarrhea, etc.
Metastatic Malignancy
- No new findings / changes. Documented pulmonary and liver lesions.
- Liver lesion biopsied on 09/20 - results are pending at this time.
- Follow-up with Oncology as planned.
Benign Hypertension
- Currently hypotensive. Hold all BP medications acutely.
- Resume as needed for BP control.
DM-II
- Stable. Recent AC was 6.2%.
- Hold metformin - would likely not resume at discharge.
- Follow glucose and cover with SSI if needed.
Thrombocytopenia
- Unchanged from prior.
- No evidence of active bleeding.
DVT Prophylaxis: SCDs
Code Status: Full
[2024-09-30 06:03] LABS: ALT (SGPT) 55 U/L (0-50); AST (SGOT) 109 U/L (17-59); Albumin 2.5 g/dl (3.5-5.0); Alkaline Phosphatase 774 U/L (38-126); Blood Urea Nitrogen 46 mg/dl (9-20); Calcium 7.8 mg/dl (8.4-10.2); Carbon Dioxide 15 mmol/L (22-30); Chloride 101 mmol/L (98-107); Direct Bilirubin 0.9 mg/dl (0.0-0.4); Estimated Creatinine Clearance 44 ml/min; Glucose 134 mg/dl (70-99); Potassium 4.6 mmol/L (3.5-5.1); Sodium 128 mmol/L (135-145); Total Bilirubin 1.7 mg/dl (0.2-1.3); eGFR 53.84
[2024-09-30 08:52] LABS: Glucose - Point of Care 103 mg/dl (70-99)
[2024-09-30] MEDS: NOVOLOG FLEXPEN-LOW RESISTANCE SC ×3 (08:55→16:13)
[2024-09-30] MEDS: ASPIR LOW (ENTERIC COATED) 81 MG PO (08:55)
[2024-09-30] MEDS: LIPITOR 10 MG PO (08:57)
[2024-09-30] MEDS: SODIUM BICARBONATE 650 MG PO (08:58)
[2024-09-30] MEDS: IMODIUM 2 MG PO ×2 (08:58→16:09)
--- NOTE | 2024-09-30 09:16 | W.PN.HOSP.TC ---
Addendum entered and electronically signed by Gregory Cordero MD 10/01/24 16:45:
Acute DVT, poa
Original Note:
Today's Communication/Plan
-
IVF. Eliquis. Oncology eval
Assessment / Plan
Assessment / Plan
Physical exam:
General: Acutely ill
HEENT: Normocephalic, Atraumatic and Moist Mucous Membranes
Respiratory: Clear to Auscultation; Negative Wheezes, Rales or Rhonchi
Cardiac: Regular Rhythm and S1/S2
GI: Soft, tender and Nondistended
Musculoskeletal: No Clubbing, No Cyanosis. Left lower extremity edema
Neuro: Awake, Alert and Oriented, generalized with
Psych: Calm
A/P:
Generalized weakness and falls:
Likely dehydration and underlying malignancy and diarrhea and DVT contributing
PT OT eval
Left lower extremity new DVT:
Start Eliquis today 09/30 of 10 mg twice a day for a week and then 5 mg twice a day
Hold aspirin
Hematology oncology consult-discussed with onc via [facility] text
Chronic diarrhea:
Infectious workup negative back on 09/18 on last hospitalization
Continue Imodium
Abdominal pain:
Pain control
If worsening, consider repeat images but hold off with recent trevin and likely known etiology with liver mets
TREVIN:
Continue IV fluids but change composition
Metabolic acidosis:
Start Bicarbonate drip
Hold oral bicarb
Hypotension:
IV fluid
Check cortisol level
Check blood cultures if persistent or fevers
Hyponatremia:
Check serum osmolarity, urine sodium, urine osmolarity, TSH, and cortisol
Free water intake restrictions less than 50 ounces a day
Monitor sodium in a.m.
Metastatic disease of unknown primary:
Recent biopsy with poorly differentiated carcinoma
Oncology eval
Hypertension:
Meds discontinued recently last hospitalization
Hold Hytrin
Hyperlipidemia:
Hold statin
Elevated LFTs:
Likely mets related
Hold acetaminophen and statins
Trend
Diabetes mellitus:
Insulin sliding scale
Hold metformin
Moderate protein calorie malnutrition:
Monitor calorie intake
Anemia:
Continue to monitor
BPH:
Hold Hytrin 10 mg p.o. nightly
Check bladder scan post-void
Thrombocytopenia:
Monitor platelet count
DVT prophylaxis:
On Eliquis now
CODE STATUS:
Full code
Anticipated Discharge: > 48 hours
Subjective/Interval History
-
Date of Service: September 30, 2024
Patient very weak overall. Complains of abdominal pain. No chest pain or shortness of breath
Objective Data
-
Labs:
Laboratory Results
09/30/24 09/30/24 09/30/24
01:58 05:40 08:59
WBC 8.9 Cancelled Pending
Hgb 13.0 Cancelled Pending
Hct 40.4 Cancelled Pending
Plt Count 104 L Cancelled Pending
Sodium 131 L 128 L
Potassium 4.7 4.6
Chloride 100 101
Carbon Dioxide 16 L 15 L
BUN 50 H 46 H
Creatinine 1.6 H 1.3
Glucose 118 H 134 H
Calcium 8.5 7.8 L
Total Bilirubin 1.7 H 1.7 H
AST 120 H 109 H
ALT 58 H 55 H
Alkaline Phosphatase 881 H 774 H
Vital Signs:
Vital Signs
Temp Pulse Resp BP Pulse Ox
97.7 F 53 21 93/46 94
09/30/24 01:48 09/30/24 06:22 09/30/24 06:22 09/30/24 06:00 09/30/24 04:00
I&O
09/29/24 09/30/24 10/01/24
06:59 06:59 06:59
Intake Total 500 / 500
Output Total 750 / 750
Balance -250 / -250
[2024-09-30 09:18] LABS: Hematocrit 38.1 % (39.0-52.0); Hemoglobin 12.4 g/dL (13.0-18.0); Mean Corp Hgb Conc. 32.5 g/dL (33.0-37.0); Mean Corpuscular Hgb 27.5 pg (27.0-31.0); Mean Corpuscular Volume 84.5 fL (80.0-94.0); Platelet Count 85 10^3/uL (130-400); Red Blood Cell Count 4.51 10^6/uL (4.70-6.10); Red Cell Dist. Width 20.5 % (11.5-14.5); White Blood Cell Count 7.8 10^3/uL (4.8-10.8)
[2024-09-30] MEDS: SODIUM BICARBONATE 1075 MEQ IV ×2 (11:20→21:26)
[2024-09-30 12:40] LABS: Glucose - Point of Care 100 mg/dl (70-99)
--- NOTE | 2024-09-30 13:13 | CM ---
Chart reviewed. Patient here for a fall. Has become increasingly weak, has underlying malignancy as well. Patient lives at home with in a split-level home. [address]. Son provides transportation. Neither patient or his drive. No +SDOHs.
Retired. Independent with walker, also owns a cane. Has an active PCP and pharmacy. He currently has [facility] coming out to the home.
PT is consulted.
ANTICIPATED DISCHARGE PLAN: Home with and continued services with [facility].
[2024-09-30] MEDS: ELIQUIS 10 MG PO ×2 (14:02→21:24)
[2024-09-30] MEDS: DILAUDID 0.25 MG IV (16:09)
[2024-09-30 16:24] LABS: Glucose - Point of Care 89 mg/dl (70-99)
--- NOTE | 2024-09-30 16:46 | CON.ONC ---
Documented by User: JESSIE Solomon 09/30/24 17:00
Impression
Impression
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
VTE
fall
Plan
Plan
goals restorative -optimize PS -PT/OT/nutrition
DOAC
OP follow up with Dr. Ronnie Sanchez upon discharge
Patient History
History of Present Illness
84yo M presented following a mechanical fall. He was walking from the bathroom and his legs gave out and he collapsed to the floor. He reports ongoing weakness, diarrhea, and lack of appetite. He has increased LE edema for which US LE showed a
nonocclusive deep venous thrombosis in the left superficial femoral and common femoral veins. He has been admitted and started on DOAC.
He presented the last few months with recurring diarrhea, loss of appetite, and weight loss. His PCP ordered CT imaging for further evaluation that was notable for extensive pulmonary nodules and hepatic lesions. He underwent a liver biopsy
09/20/2024 that was diagnostic for poorly differentiated carcinoma, IHC stains are suggestive of nonseminomatous germ cell tumor.
Clincally, denies fever, chills, cough, sob at rest, chest pain, n/v or abdominal pain. He denies any overt bleeding.
Past-Medical/Surgical History
PMH HTN, DM2, HLD, BPH, arthritis, CKD
social never smoker, denies etoh or recreational drugs. 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 lives with .
family mother colon cancer, brother prostate cancer.
Patient Medication
�Medication �Instructions �Recorded �Confirmed �Last Taken �Type
acetaminophen 500 mg tablet 1,000 mg PO HS PRN mild pain 09/17/24 09/30/24 09/16/24 History
amlodipine 10 mg tablet 10 mg PO DAILY Blood Pressure 09/17/24 09/30/24 09/13/24 History
aspirin 81 mg tablet,delayed 81 mg PO DAILY Blood Clot 09/17/24 09/30/24 Unknown History
release Prevention/Tx
atenolol 50 mg tablet 50 mg PO BID Blood Pressure 09/17/24 09/30/24 09/13/24 History
calcium carbonate (Tums) 200 mg PO DAILY PRN gerd 09/17/24 09/30/24 09/16/24 History
metformin 1,000 mg tablet 1,000 mg PO BID Diabetes 09/17/24 09/30/24 Unknown History
omega [id number]-fish oil 1,000 mg 4 cap PO DAILY Supplement 09/17/24 09/30/24 Unknown History
(120 mg-180 mg) capsule (Fish Oil)
simvastatin 20 mg tablet 20 mg PO DAILY High Cholesterol 09/17/24 09/30/24 Unknown History
terazosin 10 mg capsule 10 mg PO HS Urinary Issue 09/17/24 09/30/24 09/13/24 History
Active Medications
Generic Name Dose Route Start Last Admin
Trade Name Freq PRN Reason Stop Dose Admin
Acetaminophen 650 mg 09/30/24 05:11
Acetaminophen 325 Mg Tablet PO 10/28/24 05:10
Q4HPRN PRN
Mild Pain / Temp > 101
Apixaban 10 mg 09/30/24 13:00 09/30/24 14:02
Apixaban (Eliquis) 5 Mg Tablet PO 10/06/24 20:01 10 mg
BID ÁNGEL Administration
Apixaban 5 mg 10/07/24 08:00
Apixaban (Eliquis) 5 Mg Tablet PO 11/04/24 07:59
BID ÁNGEL
Aspirin 81 mg 09/30/24 08:00 09/30/24 08:55
Aspirin 81 Mg (Enteric Coated) Tablet PO 10/28/24 07:59 81 mg
DAILY ÁNGEL Administration
Atorvastatin Calcium 10 mg 09/30/24 08:00 09/30/24 08:57
Atorvastatin (Lipitor) 10 Mg Tablet PO 10/28/24 07:59 10 mg
DAILY ÁNGEL Administration
Dextrose 12.5 grams 09/30/24 05:11
Dextrose 50% (0.5 Grams/Ml) 50 Ml Syringe IV 10/28/24 05:10
[id number] PRN
hypoglycemia
Protocol
Glucagon 1 mg 09/30/24 05:11
Glucagon 1 Mg Vial IM 10/28/24 05:10
PRN PRN
hypoglycemia
Protocol
Hydromorphone HCl 0.25 mg 09/30/24 09:59 09/30/24 16:09
Hydromorphone 0.25 Mg/0.5 Ml Syringe IV 10/14/24 09:58 0.25 mg
Q4HPRN PRN Administration
severe pain
Sodium Bicarbonate 75 meq/ 1,075 mls @ 100 mls/hr 09/30/24 10:00 09/30/24 11:20
Sodium Chloride IV 10/01/24 10:00 1,075 mls
.[id number] ÁNGEL Administration
Insulin Aspart 0 units 09/30/24 07:30 09/30/24 16:13
Insulin Aspart Low Resistance 300 Units/3 Ml Pen.Injctr SC 10/28/24 07:29 Not Given
AC ÁNGEL
Protocol
Loperamide HCl 2 mg 09/30/24 16:11
Loperamide 2 Mg Capsule PO 10/28/24 07:59
TID PRN
diarrhea
Sodium Bicarbonate 650 mg 09/30/24 08:00 09/30/24 08:58
Sodium Bicarbonate 650 Mg Tablet PO 10/28/24 07:59 650 mg
TID ÁNGEL Administration
Sodium Chloride 0 flush 09/30/24 06:00
Sodium Chloride 0.9% (Flush) Syringe IV 10/28/24 05:59
PER PROTOCOL ÁNGEL
Review of Systems
-
ROS notable for HPI otherwise negative
Physical Exam
-
General: No Apparent Distress
HEENT: Moist Mucous Membranes; Negative Jaundice
Cardiology: Normal Sinus Rhythm
Pulmonary: Clear
GI: Soft
Extremities: Pulses Present and Edema
Neurology: Non Focal
Skin: Warm
Psych: Calm
Labs
Lab Results
WBC 7.8 10^3/uL (4.8-10.8) 09/30/24 08:59
RBC 4.51 10^6/uL (4.70-6.10) L 09/30/24 08:59
Hgb 12.4 g/dL (13.0-18.0) L 09/30/24 08:59
Hct 38.1 % (39.0-52.0) L 09/30/24 08:59
MCV 84.5 fL (80.0-94.0) 09/30/24 08:59
MCH 27.5 pg (27.0-31.0) 09/30/24 08:59
MCHC 32.5 g/dL (33.0-37.0) L 09/30/24 08:59
RDW 20.5 % (11.5-14.5) H 09/30/24 08:59
Plt Count 85 10^3/uL (130-400) L 09/30/24 08:59
MPV Not Reportable 09/30/24 08:59
Abs Immat Gran (auto) 0.1 10^3/uL (0-0.05) H 09/30/24 01:58
Absolute Neuts (auto) 6.6 10^3/uL (1.4-6.5) H 09/30/24 01:58
Absolute Lymphs (auto) 1.6 10^3/uL (1.2-3.4) 09/30/24 01:58
Absolute Monos (auto) 0.6 10^3/uL (0.1-0.6) 09/30/24 01:58
Absolute Eos (auto) 0.0 10^3/uL (0-0.7) 09/30/24 01:58
Absolute Basos (auto) 0.0 10^3/uL (0-0.2) 09/30/24 01:58
Immature Gran % 0.6 % (0-0.5) H 09/30/24 01:58
Neutrophils % 73.8 % (42.2-75.2) 09/30/24 01:58
Lymphocytes % 18.1 % (20.5-51.1) L 09/30/24 01:58
Monocytes % 6.8 % (1.7-9.3) 09/30/24 01:58
Eosinophils % 0.4 % (0-6) 09/30/24 01:58
Basophils % 0.3 % (0-2) 09/30/24 01:58
Creatinine 1.3 mg/dL (0.7-1.3) 09/30/24 05:40
Vital Signs
Vital Signs
Temp Pulse Resp BP Pulse Ox
97.7 F 53 21 93/46 94
09/30/24 01:48 09/30/24 06:22 09/30/24 06:22 09/30/24 06:00 09/30/24 04:00

Documented by User: Vesna Morales MD 09/30/24 20:43
Plan
Plan
goals restorative -optimize PS -PT/OT/nutrition
DOAC
OP follow up with Dr. Ronnie Sanchez upon discharge
ATTENDING ADDENDUM
84 yo man with metastatic cancer, liver bx with poorly diff carcinoma, markers most consistent with germ cell primary.
Main complaint is weakness, will need rehab stay. PS currently marginal for chemotherapy.
1) DVT - Eliquis
2) Failure to thrive - rehab
3) Met cancer
- testicular U/S
- germ cell tumor markers
- out PET
- MSI testing on tumor tissue
Options for lower intensity therapy would be oral etoposide or if MSI high then Keytruda.
Thank you for consult, will follow along with you.
[2024-09-30 18:07] LABS: Urine Sodium < 5 mmol/L (30-90)
[2024-09-30 19:42] LABS: Osmolality Urine 281 mOsm/kg (300-900)
[2024-09-30 20:08] LABS: Hepatitis C Antibody Negative (Negative)
[2024-09-30 21:35] LABS: Glucose - Point of Care 94 mg/dl (70-99)
[2024-10-01 06:00] VITALS: BMI 22.2
[2024-10-01 06:25] LABS: % Basophils 0.3 % (0-2); % Eosinophils 0.3 % (0-6); % Immature Granulocytes 0.5 % (0-0.5); % Lymphocytes 18.1 % (20.5-51.1); % Monocytes 7.9 % (1.7-9.3); % Neutrophils 72.9 % (42.2-75.2); Absolute Lymphocytes 1.4 10^3/uL (1.2-3.4); Absolute Monocytes 0.6 10^3/uL (0.1-0.6); Absolute Neutrophils 5.7 10^3/uL (1.4-6.5); Hematocrit 40.4 % (39.0-52.0); Hemoglobin 13.1 g/dL (13.0-18.0); Mean Corp Hgb Conc. 32.4 g/dL (33.0-37.0); Mean Corpuscular Hgb 26.8 pg (27.0-31.0); Mean Corpuscular Volume 82.6 fL (80.0-94.0); Nucleated Red Blood Cells % 0 % (-); Platelet Count 95 10^3/uL (130-400); Red Blood Cell Count 4.89 10^6/uL (4.70-6.10); Red Cell Dist. Width 21.1 % (11.5-14.5); White Blood Cell Count 7.8 10^3/uL (4.8-10.8)
[2024-10-01 06:26] LABS: ALT (SGPT) 61 U/L (0-50); AST (SGOT) 117 U/L (17-59); Albumin 2.5 g/dl (3.5-5.0); Alkaline Phosphatase 825 U/L (38-126); Blood Urea Nitrogen 40 mg/dl (9-20); Calcium 7.9 mg/dl (8.4-10.2); Carbon Dioxide 21 mmol/L (22-30); Chloride 99 mmol/L (98-107); Direct Bilirubin 1.6 mg/dl (0.0-0.4); Estimated Creatinine Clearance 47 ml/min; Glucose 86 mg/dl (70-99); Magnesium 2.2 mg/dl (1.6-2.3); Potassium 4.5 mmol/L (3.5-5.1); Sodium 130 mmol/L (135-145); Total Bilirubin 2.7 mg/dl (0.2-1.3); Total Protein 4.9 g/dl (6.3-8.2); eGFR 59.26
[2024-10-01 06:33] LABS: Osmolality Serum 281 mOsm/kg (275-300)
[2024-10-01 07:00] VITALS: BP 119/48
[2024-10-01 07:08] LABS: Cortisol, Random 23.2 ug/dl; TSH Reflex To Free T4 5.53 uIU/ml (0.47-4.68)
[2024-10-01] MEDS: SODIUM BICARBONATE 1075 MEQ IV (08:12)
[2024-10-01] MEDS: ELIQUIS 10 MG PO ×2 (08:13→20:10)
--- NOTE | 2024-10-01 08:18 | VNURNOTE ---
Chart reviewed. [facility], [facility], [facility]. Will continue to follow hospital course and DC plans.
--- NOTE | 2024-10-01 08:42 | W.PN.ONC2 ---
Today's Communication / Plan
-
testicular U/S
liver U/S
germ cell tumor markers
out PET
MSI testing on tumor tissue
goals restorative -optimize PS -PT/OT/nutrition
DOAC
OP follow up with Dr. Ronnie Sanchez upon discharge
Impression
Impression
84 yo man with metastatic cancer, liver bx with poorly diff carcinoma, markers most consistent with germ cell primary
acute nonocclusive deep venous thrombosis in the left superficial femoral and common femoral veins
fall/FTT
rising LFTs, hep C non-reactive
Plan
Plan
will need rehab stay. PS currently marginal for chemotherapy.
Eliquis
testicular U/S
liver U/S
germ cell tumor markers
out PET
MSI testing on tumor tissue
Options for lower intensity therapy would be oral etoposide or if MSI high then Keytruda.
Subjective/Objective
Subjective
no new complaints
continue with poor appetite and RUQ pain
Vital Signs:
Vital Signs
Temp Pulse Resp BP Pulse Ox
97.6 F 55 20 101/53 100
09/30/24 23:04 09/30/24 23:04 09/30/24 23:04 09/30/24 23:04 09/30/24 23:04
Lab Results:
Laboratory Data
WBC 7.8 10^3/uL (4.8-10.8) 10/01/24 05:32
Hgb 13.1 g/dL (13.0-18.0) 10/01/24 05:32
Plt Count 95 10^3/uL (130-400) L 10/01/24 05:32
eGFR 59.26 10/01/24 05:32
Physical Exam
General: No Apparent Distress
HEENT: Moist Mucous Membranes; Negative Jaundice
Cardiology: Normal Sinus Rhythm
Pulmonary: Clear
GI: Soft, RUQ TTP
Extremities: Pulses Present and Edema
Neurology: Non Focal
Skin: Warm
Psych: Calm
[2024-10-01 09:01] LABS: Glucose - Point of Care 84 mg/dl (70-99)
[2024-10-01] MEDS: NOVOLOG FLEXPEN-LOW RESISTANCE SC ×3 (09:07→17:51)
--- NOTE | 2024-10-01 10:14 | PN.CDI ---
CDI
- -
CDI:
Physician Documentation Request
Admit Date: 09/30/24 05:07
Dear Doctor Gil,
Patient admitted for weakness and falls.
09/30 Lower extremity US: 'There is nonocclusive deep venous thrombosis in the left superficial femoral and common femoral veins'
09/30 Hospitalist PN: 'Left lower extremity new DVT: Start Eliquis today 09/30 of 10 mg twice a day for a week and then 5 mg twice a day'
Clarify which of the following accurately represents the acuity of the DVT. Possible options might include:
____ Acute
____ Other
____ Unable to determine
Use of terms such as suspected, likely, concern for, or probable (associated with a specific diagnosis that is being evaluated, monitored, or treated as if it exists) are acceptable and can be coded in the inpatient setting, when documented at the
time of discharge.
Thank you,
Lizeth English RN, BSN
CDI Specialist
Available via [place] text
Please use your independent medical judgment in providing your response.
--- NOTE | 2024-10-01 10:38 | W.PN.HOSP.TC ---
Today's Communication/Plan
-
Oncology workup in progress.
Assessment / Plan
Assessment / Plan
Physical exam:
General: Chronically ill
HEENT: Normocephalic, Atraumatic and Moist Mucous Membranes
Respiratory: Clear to Auscultation; Negative Wheezes, Rales or Rhonchi
Cardiac: Regular Rhythm and S1/S2
GI: Soft, tender and Nondistended
Musculoskeletal: No Clubbing, No Cyanosis. Left lower extremity edema slightly better
Neuro: Awake, Alert and Oriented, generalized weakness
Psych: Calm
A/P:
Generalized weakness and falls:
Likely dehydration and underlying malignancy and diarrhea and DVT contributing
PT OT eval
Discussed with daughter today at length over the phone
Will likely require rehab
Left lower extremity new DVT:
Started Eliquis on 09/30 of 10 mg twice a day for a week and then 5 mg twice a day
Held aspirin
Hematology oncology consult
Oncology planning to do liver ultrasound testicular ultrasound during serial tumor markers MSI testing and tumor tissue, outpatient PET scan.
Chronic diarrhea:
Improved
Infectious workup negative back on 09/18 on last hospitalization
Continue Imodium
Abdominal pain:
Improved
Pain control
TREVIN:
Improved
Stop IV fluid
Encourage oral intake
Metabolic acidosis:
Start bicarb drip
Resume oral bicarb
Hypotension:
Improved
Off IVF
Normal cortisol level
Hyponatremia:
Improving
Checked serum osmolarity, urine sodium, urine osmolarity, TSH, and cortisol. Workup indicative of volume depletion and decreased oral intake.
Start free water restriction
Monitor sodium in a.m.
Metastatic disease of unknown primary:
Recent biopsy with poorly differentiated carcinoma
Oncology eval and planning to do liver ultrasound testicular ultrasound during serial tumor markers MSI testing and tumor tissue, outpatient PET scan.
Oncology also noticed poor functional status and PS currently marginal for chemotherapy
Hypertension:
Meds discontinued recently last hospitalization
Hold Hytrin
Hyperlipidemia:
Hold statin
Elevated LFTs:
Likely mets related
Hold acetaminophen and statins
Trend
Diabetes mellitus:
Insulin sliding scale
Hold metformin
Moderate protein calorie malnutrition:
Monitor calorie intake
Add protein shake
Anemia:
Continue to monitor
BPH:
Hold Hytrin 10 mg p.o. nightly
Check bladder scan post-void
Thrombocytopenia:
Monitor platelet count
DVT prophylaxis:
On Eliquis now
CODE STATUS:
Full code
Anticipated Discharge: 24 - 48 hours
Subjective/Interval History
-
Date of Service: October 01, 2024
Patient with generalized weakness. No bowel movement today. No chest pain. Afebrile
Objective Data
-
Labs:
Laboratory Results
10/01/24
05:32
WBC 7.8
Hgb 13.1
Hct 40.4
Plt Count 95 L
Sodium 130 L
Potassium 4.5
Chloride 99
Carbon Dioxide 21 L
BUN 40 H
Creatinine 1.2
Glucose 86
Calcium 7.9 L
Total Bilirubin 2.7 H D
AST 117 H
ALT 61 H
Alkaline Phosphatase 825 H
Vital Signs:
Vital Signs
Temp Pulse Resp BP Pulse Ox
98.3 F 56 18 119/48 99
10/01/24 07:00 10/01/24 07:00 10/01/24 07:00 10/01/24 07:00 10/01/24 07:00
I&O
09/30/24 10/01/24 10/02/24
06:59 06:59 06:59
Intake Total 500 / 500 2099 / 2099
Output Total 910 / 910 900 / 900
Balance -410 / -410 1200 / 1200
[2024-10-01] MEDS: ULTRAM PO (10:47)
[2024-10-01 12:29] LABS: Glucose - Point of Care 94 mg/dl (70-99)
[2024-10-01] MEDS: PERCOCET 5/325 1 TABLET PO (12:55)
--- NOTE | 2024-10-01 13:21 | CM ---
Patient seen bedside.
PT/OT recommending skilled rehab.
Patient would like referrals to [facility], [place] Dinh, [place], [place].
Referrals placed.
Plan: skilled rehab one medically stable, needs insurance auth.
[2024-10-01 15:00] VITALS: BP 112/56
[2024-10-01 17:44] LABS: Glucose - Point of Care 83 mg/dl (70-99)
[2024-10-01] MEDS: SODIUM BICARBONATE 650 MG PO ×2 (17:48→22:21)
[2024-10-01 21:56] LABS: Glucose - Point of Care 119 mg/dl (70-99)
[2024-10-01 23:10] VITALS: BP 105/61
[2024-10-02] MEDS: ULTRAM 50 MG PO ×2 (02:35→20:36)
[2024-10-02 05:17] VITALS: BMI 23.5
[2024-10-02 06:48] LABS: Hematocrit 38.2 % (39.0-52.0); Hemoglobin 12.7 g/dL (13.0-18.0); Mean Corp Hgb Conc. 33.2 g/dL (33.0-37.0); Mean Corpuscular Hgb 27.1 pg (27.0-31.0); Mean Corpuscular Volume 81.6 fL (80.0-94.0); Platelet Count 97 10^3/uL (130-400); Red Blood Cell Count 4.68 10^6/uL (4.70-6.10); Red Cell Dist. Width 20.6 % (11.5-14.5); White Blood Cell Count 7.5 10^3/uL (4.8-10.8)
[2024-10-02 07:09] LABS: ALT (SGPT) 93 U/L (0-50); AST (SGOT) 234 U/L (17-59); Albumin 2.5 g/dl (3.5-5.0); Alkaline Phosphatase 892 U/L (38-126); Blood Urea Nitrogen 49 mg/dl (9-20); Carbon Dioxide 19 mmol/L (22-30); Chloride 97 mmol/L (98-107); Estimated Creatinine Clearance 49 ml/min; Glucose 108 mg/dl (70-99); Potassium 4.9 mmol/L (3.5-5.1); Sodium 125 mmol/L (135-145); eGFR 59.26
[2024-10-02 07:26] LABS: Glucose - Point of Care 100 mg/dl (70-99)
[2024-10-02 07:45] VITALS: BP 100/47
--- NOTE | 2024-10-02 07:51 | W.PN.ONC2 ---
Addendum entered and electronically signed by Samir Ramírez MD 10/02/24 07:56:
Liver U/S shows PVT in addition to extensive liver mets. Already started on Eliquis for LE DVT
Original Note:
Today's Communication / Plan
-
F/U post D/C for discussion of chemoTx vs hospice.
For SNF w rehab post D/C.
Impression
Impression
84 yo man with metastatic cancer, liver bx with poorly diff carcinoma, markers most consistent with germ cell primary
acute nonocclusive deep venous thrombosis in the left superficial femoral and common femoral veins
fall/FTT
rising LFTs, hep C non-reactive
Plan
Plan
will need rehab stay. PS currently marginal for chemotherapy.
Eliquis
testicular U/S
germ cell tumor markers
out PET
MSI testing on tumor tissue
Options for lower intensity therapy would be oral etoposide or if MSI high then Keytruda.
Subjective/Objective
Chief Complaint
Oncology F/U
Subjective
Feels weak. No new c/o
Vital Signs:
Vital Signs
Temp Pulse Resp BP Pulse Ox
97.6 F 63 17 100/47 94
10/02/24 07:45 10/02/24 07:45 10/02/24 07:45 10/02/24 07:45 10/02/24 07:45
Lab Results:
Laboratory Data
WBC 7.5 10^3/uL (4.8-10.8) 10/02/24 06:11
Hgb 12.7 g/dL (13.0-18.0) L 10/02/24 06:11
Plt Count 97 10^3/uL (130-400) L 10/02/24 06:11
eGFR 59.26 10/02/24 06:11
Physical Exam
Non toxic
HEENT: Jaundice (Maybe?)
Cardiology: S1 and S2
Pulmonary: Clear
[2024-10-02] MEDS: NOVOLOG FLEXPEN-LOW RESISTANCE SC ×2 (08:27→13:28)
[2024-10-02] MEDS: SODIUM BICARBONATE 650 MG PO ×3 (08:29→21:42)
[2024-10-02] MEDS: ELIQUIS 10 MG PO ×2 (08:29→20:35)
--- NOTE | 2024-10-02 08:54 | W.PN.HOSP.TC ---
Today's Communication/Plan
-
Fluid restriction.
Assessment / Plan
Assessment / Plan
Physical exam:
General: Chronically ill
HEENT: Normocephalic, Atraumatic and Moist Mucous Membranes
Respiratory: Clear to Auscultation; Negative Wheezes, Rales or Rhonchi
Cardiac: Regular Rhythm and S1/S2
GI: Soft, tender and Nondistended
Musculoskeletal: No Clubbing, No Cyanosis. Left lower extremity edema better
Neuro: Awake, Alert and Oriented, generalized weakness
Psych: Calm
A/P:
Generalized weakness and falls:
Likely dehydration and diarrhea and acute DVT contributing acutely and underlying malignancy contributing chronically
PT OT recommends rehab
Discussed with family over the phone
Discussed with case investigator and plan to go to rehab when medically stable
Left lower extremity new DVT:
Started Eliquis on 09/30 of 10 mg twice a day for a week and then 5 mg twice a day
Held aspirin
Hematology oncology consult
Oncology planning to do liver ultrasound testicular ultrasound during serial tumor markers MSI testing and tumor tissue, outpatient PET scan. Scrotum ultrasound unremarkable except for very small left hydrocele.
Hyponatremia:
Worsening again
Restart fluid restriction
Repeat urine sodium and osm
Checked serum osmolarity, urine sodium, urine osmolarity, TSH, and cortisol. Workup indicative of volume depletion and decreased oral intake but there might be an element of siadh as well.
Start free water restriction
Monitor sodium in a.m.
Metastatic disease of unknown primary:
Recent biopsy with poorly differentiated carcinoma
Oncology eval and planning to do liver ultrasound testicular ultrasound during serial tumor markers MSI testing and tumor tissue, outpatient PET scan.
Oncology also noticed poor functional status and PS currently marginal for chemotherapy
After rehab might need to discuss chemo versus hospice depending on how he does clinically
Left portal vein thrombosis:
On anticoagulant
Chronic diarrhea:
Improved
Infectious workup negative back on 09/18 on last hospitalization
Continue Imodium
Abdominal pain:
Improved
Pain control
TREVIN:
Improved
Stop IV fluid
Encourage oral intake
Metabolic acidosis:
Off bicarb drip
Resume oral bicarb
Hypotension:
Improved
Off IVF
Normal cortisol level
Hypertension:
Meds discontinued recently last hospitalization
Hold Hytrin
Hyperlipidemia:
Hold statin
Elevated LFTs:
Likely mets related
Hold acetaminophen and statins
Trend
Diabetes mellitus:
Insulin sliding scale
Hold metformin
Moderate protein calorie malnutrition:
Monitor calorie intake
Add protein shake
Anemia:
Continue to monitor
BPH:
Hold Hytrin 10 mg p.o. nightly
Check bladder scan post-void
Thrombocytopenia:
Monitor platelet count
DVT prophylaxis:
On Eliquis now
CODE STATUS:
Full code
Anticipated Discharge: 24 - 48 hours
Subjective/Interval History
-
Date of Service: October 02, 2024
Patient still very weak overall. No chest pain or shortness of breath. No diarrhea. No bleeding. Afebrile
Objective Data
-
Labs:
Laboratory Results
10/02/24
06:11
WBC 7.5
Hgb 12.7 L
Hct 38.2 L
Plt Count 97 L
Sodium 125 L
Potassium 4.9
Chloride 97 L
Carbon Dioxide 19 L
BUN 49 H
Creatinine 1.2
Glucose 108 H
Calcium 8.0 L
Total Bilirubin 3.0 H
AST 234 H
ALT 93 H
Alkaline Phosphatase 892 H
Vital Signs:
Vital Signs
Temp Pulse Resp BP Pulse Ox
97.6 F 63 17 100/47 94
10/02/24 07:45 10/02/24 07:45 10/02/24 07:45 10/02/24 07:45 10/02/24 07:45
I&O
10/01/24 10/02/24 10/03/24
06:59 06:59 06:59
Intake Total 2100 / 2100 240 / 240
Output Total 900 / 900 540 / 540
Balance 1200 / 1200 -300 / -300
--- NOTE | 2024-10-02 10:53 | CM ---
Patient seen bedside.
Plan is for skilled rehab.
Per patient he is not currently undergoing chemo and w/u still in progress.
Plan: short term skilled rehab once bed available.
[2024-10-02 11:48] VITALS: BP 89/52; BP 96/50; BP 98/57; PULSE 90; O2SAT 94
[2024-10-02 13:49] LABS: Glucose - Point of Care 141 mg/dl (70-99)
[2024-10-02 13:59] LABS: Osmolality Urine 462 mOsm/kg (300-900)
[2024-10-02 14:09] LABS: Urine Sodium < 5 mmol/L (30-90)
[2024-10-02 15:24] VITALS: BP 92/49
[2024-10-02 16:30] LABS: Glucose - Point of Care 170 mg/dl (70-99)
[2024-10-02] MEDS: NOVOLOG FLEXPEN-LOW RESISTANCE 1 UNITS SC (17:34)
[2024-10-02] MEDS: NSS 1000 IV (17:35)
[2024-10-02 19:35] LABS: LDH 956 U/L (120-246)
[2024-10-02 21:52] LABS: Glucose - Point of Care 151 mg/dl (70-99)
[2024-10-02] MEDS: SODIUM CHLORIDE 1 GRAM PO (22:41)
[2024-10-02 23:05] VITALS: BP 108/56
[2024-10-03 04:41] VITALS: BMI 24.1
[2024-10-03] MEDS: NSS 1000 IV (05:22)
[2024-10-03] MEDS: ULTRAM 50 MG PO ×2 (05:43→21:36)
[2024-10-03 07:51] VITALS: BP 102/47
[2024-10-03 07:58] LABS: ALT (SGPT) 135 U/L (0-50); AST (SGOT) 345 U/L (17-59); Albumin 2.2 g/dl (3.5-5.0); Alkaline Phosphatase 802 U/L (38-126); Blood Urea Nitrogen 62 mg/dl (9-20); Carbon Dioxide 19 mmol/L (22-30); Chloride 98 mmol/L (98-107); Estimated Creatinine Clearance 49 ml/min; Glucose 140 mg/dl (70-99); Potassium 4.8 mmol/L (3.5-5.1); Sodium 126 mmol/L (135-145); Total Protein 4.6 g/dl (6.3-8.2); eGFR 59.26
[2024-10-03 08:16] LABS: Hematocrit 35.6 % (39.0-52.0); Hemoglobin 11.6 g/dL (13.0-18.0); Mean Corp Hgb Conc. 32.6 g/dL (33.0-37.0); Mean Corpuscular Hgb 27.2 pg (27.0-31.0); Mean Corpuscular Volume 83.4 fL (80.0-94.0); Platelet Count 98 10^3/uL (130-400); Red Blood Cell Count 4.27 10^6/uL (4.70-6.10); White Blood Cell Count 8.6 10^3/uL (4.8-10.8)
[2024-10-03 08:26] LABS: Glucose - Point of Care 125 mg/dl (70-99)
--- NOTE | 2024-10-03 08:32 | W.PN.HOSP.TC ---
Today's Communication/Plan
-
Fluid restriction. PT OT. Discharge planning
Assessment / Plan
Assessment / Plan
Physical exam:
General: Chronically ill
HEENT: Normocephalic, Atraumatic and Moist Mucous Membranes
Respiratory: Clear to Auscultation; Negative Wheezes, Rales or Rhonchi
Cardiac: Regular Rhythm and S1/S2
GI: Soft, tender and Nondistended
Musculoskeletal: No Clubbing, No Cyanosis. Left lower extremity edema better
Neuro: Awake, Alert and Oriented, generalized weakness
Psych: Calm
A/P:
Generalized weakness and falls:
Likely dehydration and diarrhea and acute DVT and hyponatremia and contributing acutely and underlying malignancy and malnutrition contributing chronically
PT OT recommends rehab
Discussed with family over the phone today, Lacey
Discussed with case packer and sealer yesterday and plan to go to rehab when medically stable-hopefully over the next 24-48 hrs
Left lower extremity new DVT:
Started Eliquis on 09/30 of 10 mg twice a day for a week and then 5 mg twice a day
Held aspirin
Hematology oncology consult
Oncology planning to do liver ultrasound testicular ultrasound during serial tumor markers MSI testing and tumor tissue, outpatient PET scan. Scrotum ultrasound unremarkable except for very small left hydrocele.
Hyponatremia:
Sodium 126 today
Will request nephrology consult for further advice
Continue fluid restriction
Stop IV fluid
Encourage oral intake with solute
Repeated urine sodium and osm
Checked serum osmolarity, urine sodium, urine osmolarity, TSH, and cortisol. Workup indicative of volume depletion and decreased oral intake but there might be an element of siadh as well.
Monitor sodium in a.m.
Metastatic disease of unknown primary:
Recent biopsy with poorly differentiated carcinoma
Oncology eval and planning to do liver ultrasound testicular ultrasound during serial tumor markers MSI testing and tumor tissue, outpatient PET scan.
Oncology also noticed poor functional status and PS currently marginal for chemotherapy
After rehab might need to discuss chemo versus hospice depending on how he does clinically
Left portal vein thrombosis:
On anticoagulant
Chronic diarrhea:
Improved
Infectious workup negative back on 09/18 on last hospitalization
Continue Imodium as needed
Constipation:
Has no further diarrhea so we will start him on bowel regimen
Abdominal pain:
Improved
Pain control
TREVIN:
Improved
Stop IV fluid
Encourage oral intake
Metabolic acidosis:
Off bicarb drip
Resume oral bicarb
Hypotension:
Improved
Off IVF
Normal cortisol level
Hypertension:
Meds discontinued recently last hospitalization
Hold Hytrin
Hyperlipidemia:
Hold statin
Elevated LFTs:
Likely mets related
Hold acetaminophen and statins
Trend
Diabetes mellitus:
Insulin sliding scale
Hold metformin
Moderate protein calorie malnutrition:
Monitor calorie intake
Add protein shake
Anemia:
Continue to monitor
BPH:
Hold Hytrin 10 mg p.o. nightly
Check bladder scan post-void
Thrombocytopenia:
Monitor platelet count
DVT prophylaxis:
On Eliquis now
CODE STATUS:
Full code
Anticipated Discharge: 24 - 48 hours
Subjective/Interval History
-
Date of Service: October 03, 2024
Feels weak overall. No bowel movement. Not eating much. Afebrile
Objective Data
-
Labs:
Laboratory Results
10/03/24
07:04
WBC 8.6
Hgb 11.6 L
Hct 35.6 L
Plt Count 98 L
Sodium 126 L
Potassium 4.8
Chloride 98
Carbon Dioxide 19 L
BUN 62 H
Creatinine 1.2
Glucose 140 H
Calcium 8.0 L
Total Bilirubin 2.0 H D
AST 345 H
ALT 135 H
Alkaline Phosphatase 802 H
Vital Signs:
Vital Signs
Temp Pulse Resp BP Pulse Ox
97.8 F 70 16 102/47 94
10/03/24 07:51 10/03/24 07:51 10/03/24 07:51 10/03/24 07:51 10/03/24 07:51
I&O
10/02/24 10/03/24 10/04/24
06:59 06:59 06:59
Intake Total 240 / 240 1260 / 1260
Output Total 540 / 540 800 / 800
Balance -300 / -300 460 / 460
[2024-10-03] MEDS: NOVOLOG FLEXPEN-LOW RESISTANCE SC ×2 (08:38→17:44)
[2024-10-03] MEDS: SODIUM BICARBONATE 650 MG PO ×3 (08:41→21:31)
[2024-10-03] MEDS: ELIQUIS 10 MG PO ×2 (08:41→21:30)
--- NOTE | 2024-10-03 09:16 | W.PN.ONC ---
Today's Communication / Plan
-
Agree with apixaban
Patient appears prerenal consider [facility]- nephrology consultation may be helpful
Testicular U/S without definitive mass
AFP and beta hCG pending
Outpatient PET scan
MSI testing on tumor tissue
Options for lower intensity therapy would be oral etoposide or if MSI high then Keytruda
Impression
Impression
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
DVT
Hyponatremia
Subjective/Objective
Subjective/Objective
Patient lucid and appropriate. Denies pain.
Vital Signs:
Vital Signs
Temp Pulse Resp BP Pulse Ox
97.8 F 70 16 102/47 94
10/03/24 07:51 10/03/24 07:51 10/03/24 07:51 10/03/24 07:51 10/03/24 07:51
Physical examination
No scleral icterus
No rales or rhonchi
Lab Results:
Laboratory Data
WBC 8.6 10^3/uL (4.8-10.8) 10/03/24 07:04
Hgb 11.6 g/dL (13.0-18.0) L 10/03/24 07:04
Plt Count 98 10^3/uL (130-400) L 10/03/24 07:04
eGFR 59.26 10/03/24 07:04
[2024-10-03] MEDS: SODIUM CHLORIDE PO (09:27)
--- NOTE | 2024-10-03 09:33 | W.CON.NEPH ---
Consultation
-
Date/Time Consultation Requested: 10/03/2024 9:00 AM
Date/Time Consultation Performed: 10/03/2024 9:30 AM
Requesting Provider: Dr. Cordero
Performing Provider: Dr. Wolf
Reason for Consultation: Hyponatremia
Medical History
-
Chief Complaint: Hyponatremia
History of Present Illness:
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
fall. Patient was hospitalized 09/17 - 09/21 for weakness, weight loss and diarrhea. He was noted to have scattered pulmonary nodules and liver lesion c/w metastatic disease without certain primary. He underwent liver biopsy on 09/20. He was treated
with Imodium, IVFs and supplemental bicarb with improvement in his diarrhea, labs and weakness. On presentation to the hospital the patient's sodium was 131 it is now decreased to 126 and nephrology was asked to see the patient.
Past Medical History
Metastatic germ cell carcinoid
Chronic diarrhea
Left portal vein thrombus
Hypertension
Diabetes
BPH
CKD stage II
Social History
Tobacco: Non-Smoker
Alcohol: None
Drug: None
Family History
No chronic kidney disease
Allergies / Home Medications
Allergy/AdvReac Type Severity Reaction Status Date / Time
lisinopril Allergy Unknown Verified 09/30/24 01:44
Sulfa (Sulfonamide Allergy Nausea / Verified 09/30/24 01:44
Antibiotics) Vomiting
�Medication �Instructions �Recorded �Confirmed �Type
acetaminophen 500 mg tablet 1,000 mg PO HS PRN mild pain 09/17/24 09/30/24 History
amlodipine 10 mg tablet 10 mg PO DAILY Blood Pressure 09/17/24 09/30/24 History
aspirin 81 mg tablet,delayed 81 mg PO DAILY Blood Clot 09/17/24 09/30/24 History
release Prevention/Tx
atenolol 50 mg tablet 50 mg PO BID Blood Pressure 09/17/24 09/30/24 History
calcium carbonate (Tums) 200 mg PO DAILY PRN gerd 09/17/24 09/30/24 History
metformin 1,000 mg tablet 1,000 mg PO BID Diabetes 09/17/24 09/30/24 History
omega 0-mmc-lgq-fish oil 1,000 mg 4 cap PO DAILY Supplement 09/17/24 09/30/24 History
(120 mg-180 mg) capsule (Fish Oil)
simvastatin 20 mg tablet 20 mg PO DAILY High Cholesterol 09/17/24 09/30/24 History
terazosin 10 mg capsule 10 mg PO HS Urinary Issue 09/17/24 09/30/24 History
Review of Systems
-
History Source: Patient
All other systems: Negative unless noted
Constitutional: Fatigue and Other (Weakness)
Abdomen/GI: Diarrhea
Physical Exam
Vital Signs
Vital Signs
Temp Pulse Resp BP Pulse Ox
97.8 F 70 16 102/47 94
10/03/24 07:51 10/03/24 07:51 10/03/24 07:51 10/03/24 07:51 10/03/24 07:51
Lab Results
10/03/24 07:04
10/03/24 07:04
WBC 8.6 10^3/uL (4.8-10.8) 10/03/24 07:04
RBC 4.27 10^6/uL (4.70-6.10) L 10/03/24 07:04
Hgb 11.6 g/dL (13.0-18.0) L 10/03/24 07:04
Hct 35.6 % (39.0-52.0) L 10/03/24 07:04
Plt Count 98 10^3/uL (130-400) L 10/03/24 07:04
Sodium 126 mmol/L (135-145) L 10/03/24 07:04
Potassium 4.8 mmol/L (3.5-5.1) 10/03/24 07:04
Chloride 98 mmol/L (98-107) 10/03/24 07:04
Carbon Dioxide 19 mmol/L (22-30) L 10/03/24 07:04
BUN 62 mg/dl (9-20) H 10/03/24 07:04
Creatinine 1.2 mg/dL (0.7-1.3) 10/03/24 07:04
eGFR 59.26 10/03/24 07:04
Glucose 140 mg/dl (70-99) H 10/03/24 07:04
Calcium 8.0 mg/dl (8.4-10.2) L 10/03/24 07:04
Albumin 2.2 g/dl (3.5-5.0) L 10/03/24 07:04
Physical Exam
General: AOx3, Nontoxic , NAD
HEENT: PERRL, EOMI, Anicteric, Conjunctivae Clear, Ear/Nose Intact, Hearing Normal, Oropharynx Clear/Moist, Dentition Intact, Facial Symmetry, Neck Supple, Neck: Trachea Midline, No JVD and No Thyromegaly, no Bruits
Respiratory: Clear to auscultation bilaterally with normal lung excursion
Cardiac: S1/S2 and Regular Rate/Rhythm
Breast: Deferred by me
Abdomen: Soft, mild tenderness with right lower quadrant palpation, distended, Normal Bowel Sounds and No Hepatosplenomegaly
Rectal: Deferred by Provider
Genito-urinary: No Costovertebral Tenderness
Extremities: No Clubbing, No Cyanosis and plus one central Edema
Skin: No Rash petechial-like rash along lower extremities
Neuro: Nonfocal/Grossly Intact, CN II-XII (Intact) and Strength (Musculoskeletal exam 5 out of 5 both upper and lower extremities)
Hematologic/Lymphatic: No Cervical Lymphadenopathy, No Submandibular Lymphadenopathy and No Supraclavicular Lymphadenopathy
Psych: Mood/afflect pleasant, Insight/judgement good and Appropriate
Vascular: plus 1 pedal and radial pulses
Data Reviewed
-
Radiology: Report Reviewed by me (Abdominal ultrasound report reviewed large liver nonocclusive thrombus within left portal vein and metastatic lesions)
Labs: Labs Reviewed by me (BMP urine sodium urine osmolality)
Old Records: Reviewed (Reviewed previous serum sodium level of 135 from 09/18/2024 in electronic medical record)
Assessment/Plan
-
Impression:
Metastatic germ cell carcinoma
Hyponatremia
Hypertension
Diabetes
Left lower extremity DVT
Chronic diarrhea
Metabolic acidosis
Elevated LFTs
Hypoalbuminemia
Plan:
Hyponatremia
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
-Exacerbated with normal saline administration which is consistent with SIADH
-Urine sodium less than 5 (consistent with hypovolemia)
-Urine osmolality 462 (consistent with excess ADH)
-Albumin of 2.2 consistent with underlying malignancy and compromised effective circulating volume and remains hypotensive
-I will provide 3% saline at 20 cc/h for total of 250 cc given hypotension compromised effective circulating volume and elevated LFTs which technically Samsca should not be administered
[2024-10-03] MEDS: SODIUM CHLORIDE 3% 250 IV (11:28)
[2024-10-03] MEDS: MIRALAX 17 GRAMS PO (12:04)
[2024-10-03] MEDS: SENOKOT 8.6 MG PO (12:09)
[2024-10-03 12:37] LABS: Glucose - Point of Care 173 mg/dl (70-99)
[2024-10-03] MEDS: NOVOLOG FLEXPEN-LOW RESISTANCE 1 UNITS SC (13:18)
--- NOTE | 2024-10-03 14:19 | CM ---
Addendum entered by Val Jose 10/03/24 16:32:
Abhinav from [facility] called & stated they will accept patient.
Bed available tomorrow
CM called ins [phone] & spoke with Jose
Authorization #: [id number]
start 10/04/24---NRD 10/08/24
If patient does not d/c tomorrow will need updated PT/OT notes Mon ([facility] does not accept over weekend)
Post acute concurrent phone #:
Fax updates to [phone]
[facility]
Report #:[phone] (unit C)
Fax #: [phone]
Original Note:
Met with patient at bedside.
Referrals in [facility].
Discussed with patient & dil - [facility] preferred.
Called Abhinav from [facility] & is reviewing the referral & bed availability
Abhinav will call CM back.
Will need to obtain insurance auth
PLAN: SNF, pending bed availability - will need to get ins auth.
[2024-10-03 15:08] VITALS: BP 95/53
[2024-10-03 17:53] LABS: Glucose - Point of Care 146 mg/dl (70-99)
[2024-10-03 19:38] LABS: AFP Male/Tumor Marker > 9950 ng/ml
[2024-10-03 21:37] LABS: Glucose - Point of Care 183 mg/dl (70-99)
[2024-10-03] MEDS: SENOKOT PO (21:40)
[2024-10-03 23:17] VITALS: BP 106/60
--- NOTE | 2024-10-04 05:46 | PTCARENOTE ---
While repositioning patient, sheets noted to be wet under LE. LE now with scattered blistering and weeping. L heel with large reddened area ? ruptured blister. Protective foams applied, full bath, gown and linen changed. Covidien pads loosely
wrapped around LE.
[2024-10-04 06:00] VITALS: BMI 24.2
[2024-10-04 06:53] LABS: Hematocrit 34.8 % (39.0-52.0); Hemoglobin 11.2 g/dL (13.0-18.0); Mean Corp Hgb Conc. 32.2 g/dL (33.0-37.0); Mean Corpuscular Hgb 26.9 pg (27.0-31.0); Mean Corpuscular Volume 83.7 fL (80.0-94.0); Platelet Count 102 10^3/uL (130-400); Red Blood Cell Count 4.16 10^6/uL (4.70-6.10); Red Cell Dist. Width 21.2 % (11.5-14.5); White Blood Cell Count 9.4 10^3/uL (4.8-10.8)
[2024-10-04 07:22] LABS: ALT (SGPT) 148 U/L (0-50); AST (SGOT) 340 U/L (17-59); Albumin 2.4 g/dl (3.5-5.0); Alkaline Phosphatase 1142 U/L (38-126); Blood Urea Nitrogen 65 mg/dl (9-20); Calcium 8.2 mg/dl (8.4-10.2); Carbon Dioxide 21 mmol/L (22-30); Chloride 97 mmol/L (98-107); Direct Bilirubin 2.5 mg/dl (0.0-0.4); Estimated Creatinine Clearance 46 ml/min; Glucose 125 mg/dl (70-99); Potassium 4.9 mmol/L (3.5-5.1); Sodium 130 mmol/L (135-145); Total Bilirubin 3.2 mg/dl (0.2-1.3); Total Protein 4.9 g/dl (6.3-8.2); eGFR 53.84
[2024-10-04 08:01] LABS: Glucose - Point of Care 127 mg/dl (70-99)
[2024-10-04 08:05] VITALS: BP 102/51
--- NOTE | 2024-10-04 09:00 | W.PN.HOSP.TC ---
Addendum entered and electronically signed by Gregory Cordero MD 10/04/24 15:30:
TREVIN, POA--> Cr 1.6 on 09/30/2024 and baseline Cr 1.2 on 09/21/2024 which is an increase of >=0.3 from baseline.
Original Note:
Today's Communication/Plan
-
Oxycodone. Lasix low dose x 1.
Assessment / Plan
Assessment / Plan
Physical exam:
General: Chronically ill
HEENT: Normocephalic, Atraumatic and Moist Mucous Membranes
Respiratory: Clear to Auscultation; Negative Wheezes, Rales or Rhonchi
Cardiac: Regular Rhythm and S1/S2
GI: Soft, tender and Nondistended
Musculoskeletal: No Clubbing, No Cyanosis. Left lower extremity edema better
Neuro: Awake, Alert and Oriented, generalized weakness
Psych: Calm
A/P:
Generalized weakness and falls:
Likely dehydration and diarrhea and acute DVT and hyponatremia and contributing acutely and underlying malignancy and malnutrition contributing chronically
PT OT recommends rehab
Discussed with family over the phone yesterday, Lacey
Discussed with bilingual patient support caseworker yesterday and plan to go to rehab when medically stable. Patient feels he is not ready for discharge.
Left lower extremity new DVT:
Started Eliquis on 09/30 of 10 mg twice a day for a week and then 5 mg twice a day
Held aspirin
Hematology oncology consult
Oncology planning to do liver ultrasound testicular ultrasound during serial tumor markers MSI testing and tumor tissue, outpatient PET scan. Scrotum ultrasound unremarkable except for very small left hydrocele.
Hyponatremia:
Sodium 130 today after 3% saline by nephrology yesterday.
Nephrology consult appreciated
Will request nephrology consult for further advice
Continue fluid restriction
Monitor sodium in a.m.
Metastatic disease of unknown primary:
Recent biopsy with poorly differentiated carcinoma
Oncology eval and planning to do liver ultrasound testicular ultrasound during serial tumor markers MSI testing and tumor tissue, outpatient PET scan.
Oncology also noticed poor functional status and PS currently marginal for chemotherapy
After rehab might need to discuss chemo versus hospice depending on how he does clinically
Left portal vein thrombosis:
On anticoagulant
Chronic diarrhea:
Improved
Infectious workup negative back on 09/18 on last hospitalization
Continue Imodium as needed
Constipation:
Has no further diarrhea so we will start him on bowel regimen
Abdominal pain:
Improved
Pain control
TREVIN:
Improved
Stop IV fluid
Encourage oral intake
Metabolic acidosis:
Off bicarb drip
Resume oral bicarb
Hypotension:
Improved
Off IVF
Normal cortisol level
Hypertension:
Meds discontinued recently last hospitalization
Hold Hytrin
Hyperlipidemia:
Hold statin
Elevated LFTs:
Likely mets related
Hold acetaminophen and statins
Trend
Diabetes mellitus:
Insulin sliding scale
Hold metformin
Moderate protein calorie malnutrition:
Monitor calorie intake
Added protein shake
Anemia:
Continue to monitor
BPH:
Hold Hytrin 10 mg p.o. nightly
Check bladder scan post-void
Thrombocytopenia:
Monitor platelet count
Third spacing:
low dose iv diuretic
albumin if needed
DVT prophylaxis:
On Eliquis now
CODE STATUS:
Full code
Total time spent on today's encounter was 52 minutes which included time spent in counseling the patient/family regarding diagnosis and treatment plan as listed above, goals of care, and symptom management. Case was discussed with nursing staff,
specialists, and care coordinators/case management. All labs and imaging personally reviewed by me. Remainder the time spent in detailed review of previous records, lab data, imaging, and other medical provider documentation.
Anticipated Discharge: 24 - 48 hours
Subjective/Interval History
-
Date of Service: October 04, 2024
Patient complains of abdominal discomfort on and off. Complains of swelling of his legs. Remains very weak. Afebrile
Objective Data
-
Labs:
Laboratory Results
10/04/24
06:04
WBC 9.4
Hgb 11.2 L
Hct 34.8 L
Plt Count 102 L
Sodium 130 L
Potassium 4.9
Chloride 97 L
Carbon Dioxide 21 L
BUN 65 H
Creatinine 1.3
Glucose 125 H
Calcium 8.2 L
Total Bilirubin 3.2 H D
AST 340 H
ALT 148 H
Alkaline Phosphatase 1142 H
Vital Signs:
Vital Signs
Temp Pulse Resp BP Pulse Ox
97.8 F 79 18 102/51 96
10/04/24 08:05 10/04/24 08:05 10/04/24 08:05 10/04/24 08:05 10/04/24 08:05
I&O
10/03/24 10/04/24 10/05/24
06:59 06:59 06:59
Intake Total 1260 / 1260 1090 / 1090
Output Total 800 / 800 975 / 975
Balance 460 / 460 115 / 115
[2024-10-04] MEDS: NOVOLOG FLEXPEN-LOW RESISTANCE SC ×3 (09:12→16:50)
[2024-10-04] MEDS: SENOKOT PO ×4 (09:13→20:37)
[2024-10-04] MEDS: MIRALAX PO ×2 (09:13→09:24)
[2024-10-04] MEDS: ELIQUIS 10 MG PO ×2 (09:13→20:32)
[2024-10-04] MEDS: SODIUM BICARBONATE 650 MG PO ×3 (09:14→21:25)
--- NOTE | 2024-10-04 11:03 | CM ---
CM reviewed medical records. CM met with patient. Patient stated that he does not 'feel well' and does not feel he is ready for discharge. CM confirmed that patient has been accepted to [facility] when ready for discharge.
[2024-10-04] MEDS: ROXICODONE 5 MG PO ×2 (11:34→16:49)
[2024-10-04] MEDS: LASIX 20 MG IV (11:37)
[2024-10-04 12:09] LABS: Glucose - Point of Care 137 mg/dl (70-99)
--- NOTE | 2024-10-04 12:12 | W.PN.NEPH.PH ---
Today's Communication / Plan
-
Fluid restrict 1200
Increase diet with foods high in protein
Assessment/Plan
-
Impression:
Metastatic germ cell carcinoma
Hyponatremia
Hypertension
Diabetes
Left lower extremity DVT
Chronic diarrhea
Metabolic acidosis
Elevated LFTs
Hypoalbuminemia
Plan:
Hyponatremia
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
-Exacerbated with normal saline administration which is consistent with SIADH
-Urine sodium less than 5 (consistent with hypovolemia)
-Urine osmolality 462 (consistent with excess ADH)
-Albumin of 2.2 consistent with underlying malignancy and compromised effective circulating volume and remains hypotensive
Status post 3% saline with improvement to serum sodium of 130
I asked him to do his best to increase protein in his diet
Will trend his sodium and if and suggest he restrict his fluid intake to 1200 mL
-
-
Date of Service: October 04, 2024
CC / HPI / ROS
-
Chief Complaint:
Hyponatremia
History of Present Illness:
Hyponatremia 126 improved to 130 with 3%
Review of Systems:
No chest pain or shortness of breath
Poor appetite
Labs
-
Labs:
WBC 9.4 10^3/uL (4.8-10.8) 10/04/24 06:04
RBC 4.16 10^6/uL (4.70-6.10) L 10/04/24 06:04
Hgb 11.2 g/dL (13.0-18.0) L 10/04/24 06:04
Hct 34.8 % (39.0-52.0) L 10/04/24 06:04
Plt Count 102 10^3/uL (130-400) L 10/04/24 06:04
Sodium 130 mmol/L (135-145) L 10/04/24 06:04
Potassium 4.9 mmol/L (3.5-5.1) 10/04/24 06:04
Chloride 97 mmol/L (98-107) L 10/04/24 06:04
Carbon Dioxide 21 mmol/L (22-30) L 10/04/24 06:04
BUN 65 mg/dl (9-20) H 10/04/24 06:04
Creatinine 1.3 mg/dL (0.7-1.3) 10/04/24 06:04
eGFR 53.84 10/04/24 06:04
Glucose 125 mg/dl (70-99) H 10/04/24 06:04
Calcium 8.2 mg/dl (8.4-10.2) L 10/04/24 06:04
Albumin 2.4 g/dl (3.5-5.0) L 10/04/24 06:04
Physical Exam
-
Vital Signs:
Vital Signs
Temp Pulse Resp BP Pulse Ox
97.8 F 79 18 102/51 96
10/04/24 08:05 10/04/24 08:05 10/04/24 08:05 10/04/24 08:05 10/04/24 08:05
Respiratory:: Bilateral: CTA
Lung Excursion:: Normal
Abdomen:: Soft
Bowel Sounds:: Normal
Extremity Edema:: None: Bilateral:
Tobar Catheter: No
--- NOTE | 2024-10-04 13:22 | PN.CDI ---
CDI
- -
CDI:
Physician Documentation Request
Admit Date: 09/30/24 05:07
Dear Doctor Gil,
10/04 Hospitalist PN: 'TREVIN: Improved, Stop IV fluid, Encourage oral intake'
Laboratory Tests
09/30/24 09/30/24 10/02/24
01:58 05:40 06:11
Creatinine 1.6 H 1.3 1.2
The purpose of this query is not to question medical judgement, but to ensure the accuracy of the conditions reported for your patient.
There is either a lack of clinical support for this condition in the current medical record, or there is a lack of recognized standard criteria to support the condition.
Criteria for TREVIN*
1 Increase in serum creatinine by > or = to 0.3 mg/dL (> or = to 26.5 micromol/L) within 48 hours, OR
2 Increase in serum creatinine to > or = to 1.5 times baseline, which is known or presumed to have occurred within 7 days, OR
3 Urine volume < 0.5 nL/kg/hour for six hours
The request is for one of the following:
- Additional documentation to support the condition. Indicate if this is in lieu of what may be considered standard criteria, and/or support why the standard criteria may not be present for this patient.
- A more appropriate diagnosis, reflecting the patient's condition
- TREVIN remains a known or suspected condition for this patient and is further supported by (include additional documentation in the medical record)
- TREVIN has been ruled out and a more appropriate diagnosis for this patient's condition is .
- Other (please specify)
- Unable to determine
Use of terms such as suspected, likely, concern for, or probable (associated with a specific diagnosis that is being evaluated, monitored, or treated as if it exists) are acceptable and can be coded in the inpatient setting, when documented at the
time of discharge.
Thank you,
Lizeth English RN, BSN
CDI Specialist
Available via [employer] text
Please use your independent medical judgment in providing your response.
[2024-10-04 15:06] VITALS: BP 97/52
--- NOTE | 2024-10-04 15:20 | PTCARENOTE ---
10/04- Patient transferred and oriented to unit without issue. AAOX3; BL LE with multiple abrasions/soft and full scabs; weeping small amt serous fluid from ankle sores and L-heel. L-heel foam cleansed with NSS and changed heel foam. Multiple
ecchymoses and scabs BL UE. 98% POX on RA. Patient denies any current needs.
[2024-10-04 15:30] VITALS: BP 116/61
[2024-10-04 16:20] VITALS: BMI 24.4
[2024-10-04 16:46] LABS: Glucose - Point of Care 135 mg/dl (70-99)
[2024-10-04 23:40] VITALS: BP 113/58
[2024-10-04 23:45] VITALS: BP 105/53; BP 113/58; PULSE 74
[2024-10-05 00:09] LABS: Glucose - Point of Care 128 mg/dl (70-99)
[2024-10-05 03:02] LABS: HCG Male/Tumor Marker <1 IU/L (0-3)
[2024-10-05 06:00] VITALS: BMI 24.5
[2024-10-05 07:15] VITALS: BP 113/59
[2024-10-05 07:42] LABS: Glucose - Point of Care 117 mg/dl (70-99)
[2024-10-05 08:07] LABS: % Basophils 0.3 % (0-2); % Eosinophils 0.5 % (0-6); % Immature Granulocytes 0.6 % (0-0.5); % Lymphocytes 18.4 % (20.5-51.1); % Monocytes 12.2 % (1.7-9.3); Absolute Eosinophils 0.1 10^3/uL (0-0.7); Absolute Immature Granulocytes 0.1 10^3/uL (0-0.05); Absolute Lymphocytes 1.8 10^3/uL (1.2-3.4); Absolute Monocytes 1.2 10^3/uL (0.1-0.6); Absolute Neutrophils 6.7 10^3/uL (1.4-6.5); Hematocrit 31.1 % (39.0-52.0); Mean Corp Hgb Conc. 32.2 g/dL (33.0-37.0); Mean Corpuscular Hgb 26.9 pg (27.0-31.0); Mean Corpuscular Volume 83.6 fL (80.0-94.0); Nucleated Red Blood Cells % 0 % (-); Platelet Count 102 10^3/uL (130-400); Red Blood Cell Count 3.72 10^6/uL (4.70-6.10); Red Cell Dist. Width 21.5 % (11.5-14.5); White Blood Cell Count 9.9 10^3/uL (4.8-10.8)
[2024-10-05] MEDS: NOVOLOG FLEXPEN-LOW RESISTANCE SC ×2 (08:09→11:43)
[2024-10-05 08:10] LABS: ALT (SGPT) 147 U/L (0-50); Blood Urea Nitrogen 72 mg/dl (9-20); Calcium 8.4 mg/dl (8.4-10.2); Carbon Dioxide 23 mmol/L (22-30); Chloride 97 mmol/L (98-107); Estimated Creatinine Clearance 46 ml/min; Glucose 120 mg/dl (70-99); Magnesium 2.4 mg/dl (1.6-2.3); Sodium 129 mmol/L (135-145); Total Bilirubin 2.9 mg/dl (0.2-1.3); eGFR 53.84
[2024-10-05] MEDS: SODIUM BICARBONATE 650 MG PO ×3 (08:21→21:26)
[2024-10-05] MEDS: MIRALAX PO (08:21)
[2024-10-05] MEDS: SENOKOT PO ×2 (08:21→20:15)
[2024-10-05] MEDS: ELIQUIS 10 MG PO ×2 (08:21→20:15)
[2024-10-05 08:47] LABS: AST (SGOT) 278 U/L (17-59); Albumin 2.3 g/dl (3.5-5.0); Alkaline Phosphatase 1006 U/L (38-126); Total Protein 4.8 g/dl (6.3-8.2)
--- NOTE | 2024-10-05 09:57 | W.PN.NEPH.PH ---
Today's Communication / Plan
-
Continue with fluid restriction increase protein in diet discussed with family at bedside
Assessment/Plan
-
Impression:
Metastatic germ cell carcinoma
Hyponatremia
Hypertension
Diabetes
Left lower extremity DVT
Chronic diarrhea
Metabolic acidosis
Elevated LFTs
Hypoalbuminemia
Plan:
Hyponatremia
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
-Exacerbated with normal saline administration which is consistent with SIADH
-Urine sodium less than 5 (consistent with hypovolemia)
-Urine osmolality 462 (consistent with excess ADH)
-Albumin of 2.2 consistent with underlying malignancy and compromised effective circulating volume and remains hypotensive
Status post 3% saline with improvement to serum sodium of 130
I asked him to do his best to increase protein in his diet
Will trend his sodium and if and suggest he restrict his fluid intake to 1200 mL
Current sodium 129
-
-
Date of Service: October 05, 2024
CC / HPI / ROS
-
Chief Complaint:
Hyponatremia
History of Present Illness:
Hyponatremia 126 on admission
Current 129
Review of Systems:
No chest pain or shortness of breath
Poor appetite
Labs
-
Labs:
WBC 9.9 10^3/uL (4.8-10.8) 10/05/24 07:00
RBC 3.72 10^6/uL (4.70-6.10) L 10/05/24 07:00
Hgb 10.0 g/dL (13.0-18.0) L 10/05/24 07:00
Hct 31.1 % (39.0-52.0) L 10/05/24 07:00
Plt Count 102 10^3/uL (130-400) L 10/05/24 07:00
Sodium 129 mmol/L (135-145) L 10/05/24 07:00
Potassium 5.0 mmol/L (3.5-5.1) 10/05/24 07:00
Chloride 97 mmol/L (98-107) L 10/05/24 07:00
Carbon Dioxide 23 mmol/L (22-30) 10/05/24 07:00
BUN 72 mg/dl (9-20) H 10/05/24 07:00
Creatinine 1.3 mg/dL (0.7-1.3) 10/05/24 07:00
eGFR 53.84 10/05/24 07:00
Glucose 120 mg/dl (70-99) H 10/05/24 07:00
Calcium 8.4 mg/dl (8.4-10.2) 10/05/24 07:00
Albumin 2.3 g/dl (3.5-5.0) L 10/05/24 07:00
Physical Exam
-
Vital Signs:
Vital Signs
Temp Pulse Resp BP Pulse Ox
97.9 F 83 18 113/59 96
10/05/24 07:15 10/05/24 07:15 10/05/24 07:15 10/05/24 07:15 10/05/24 08:00
Respiratory:: Bilateral: CTA
Lung Excursion:: Normal
Abdomen:: Soft
Bowel Sounds:: Normal
Extremity Edema:: None: Bilateral:
Tobar Catheter: No
--- NOTE | 2024-10-05 09:59 | W.PN.HOSP.TC ---
Today's Communication/Plan
-
Fluid restriction. Hospice consult
Assessment / Plan
Assessment / Plan
Physical exam:
General: Chronically ill
HEENT: Normocephalic, Atraumatic and Moist Mucous Membranes
Respiratory: Clear to Auscultation; Negative Wheezes, Rales or Rhonchi
Cardiac: Regular Rhythm and S1/S2
GI: Soft, tender and Nondistended
Musculoskeletal: No Clubbing, No Cyanosis. Left lower extremity edema better
Neuro: Awake, Alert and Oriented, generalized weakness
Psych: Calm
A/P:
Generalized weakness and falls:
Likely dehydration and diarrhea and acute DVT and hyponatremia and contributing acutely and underlying malignancy and malnutrition contributing chronically
PT OT recommends rehab
Discussed with family over the phone prior
Discussed with case manager specialist prior and plan to go to rehab when medically stable.
Increase fluid restriction intake
Discussed about the possibility of hospice and also discussed about CODE STATUS and he wants to remain full code but open to discussed about hospice and he will think about pros and cons.
Hospice consulted today
Left lower extremity new DVT:
Started Eliquis on 09/30 of 10 mg twice a day for a week and then 5 mg twice a day
Held aspirin
Hematology oncology consult
Oncology planning to do liver ultrasound testicular ultrasound during serial tumor markers MSI testing and tumor tissue, outpatient PET scan. Scrotum ultrasound unremarkable except for very small left hydrocele.
Hyponatremia:
Sodium 129 today
We will increase fluid restriction to less than 1200 cc for 24 hours
Appreciate nephrology consult and follow-up
Prior to today:
Sodium 130 today after 3% saline by nephrology yesterday.
Nephrology consult appreciated
Will request nephrology consult for further advice
Continue fluid restriction
Monitor sodium in a.m.
Metastatic disease of unknown primary:
Recent biopsy with poorly differentiated carcinoma
Oncology eval and planning to do liver ultrasound testicular ultrasound during serial tumor markers MSI testing and tumor tissue, outpatient PET scan.
Oncology also noticed poor functional status and PS currently marginal for chemotherapy
After rehab might need to discuss chemo versus hospice depending on how he does clinically
Left portal vein thrombosis:
On anticoagulant
Chronic diarrhea:
Improved
Infectious workup negative back on 09/18 on last hospitalization
Continue Imodium as needed
Constipation:
Has no further diarrhea so we will start him on bowel regimen-not very compliant with bowel regimen.
Also will start him on lactulose
Abdominal pain:
Improved
Pain control
TREVIN:
Improved
Stop IV fluid
Encourage oral intake
Metabolic acidosis:
Off bicarb drip
Resume oral bicarb
Hypotension:
Improved
Off IVF
Normal cortisol level
Hypertension:
Meds discontinued recently last hospitalization
Hold Hytrin
Hyperlipidemia:
Hold statin
Elevated LFTs:
Likely mets related
Hold acetaminophen and statins
Trend
Diabetes mellitus:
Insulin sliding scale
Hold metformin
Moderate protein calorie malnutrition:
Monitor calorie intake
Added protein shake
Anemia:
Continue to monitor
BPH:
Hold Hytrin 10 mg p.o. nightly
Check bladder scan post-void
Thrombocytopenia:
Monitor platelet count
Third spacing:
low dose iv diuretic
albumin if needed
DVT prophylaxis:
On Eliquis now
CODE STATUS:
Full code
Total time spent on today's encounter was 52 minutes which included time spent in counseling the patient/family regarding diagnosis and treatment plan as listed above, goals of care, and symptom management. Case was discussed with nursing staff,
specialists, and care coordinators/case management. All labs and imaging personally reviewed by me. Remainder the time spent in detailed review of previous records, lab data, imaging, and other medical provider documentation.
Anticipated Discharge: > 48 hours
Subjective/Interval History
-
Date of Service: October 05, 2024
Patient remains very weak overall. Not eating much. Complains of pain in back and abdomen on and off. Has not had any bowel movement but does not want to bowel regimen-explained the importance for such. He is passing gases though. Afebrile
Objective Data
-
Labs:
Laboratory Results
10/05/24
07:00
WBC 9.9
Hgb 10.0 L
Hct 31.1 L
Plt Count 102 L
Sodium 129 L
Potassium 5.0
Chloride 97 L
Carbon Dioxide 23
BUN 72 H
Creatinine 1.3
Glucose 120 H
Calcium 8.4
Total Bilirubin 2.9 H
AST 278 H
ALT 147 H
Alkaline Phosphatase 1006 H
Vital Signs:
Vital Signs
Temp Pulse Resp BP Pulse Ox
97.9 F 83 18 113/59 96
10/05/24 07:15 10/05/24 07:15 10/05/24 07:15 10/05/24 07:15 10/05/24 08:00
I&O
10/04/24 10/05/24 10/06/24
06:59 06:59 06:59
Intake Total 1090 / 1090 1800 / 1800
Output Total 975 / 975 1120 / 1120
Balance 115 / 115 680 / 680
[2024-10-05] MEDS: DUPHALAC/CHRONULAC 20 GRAMS PO (11:33)
[2024-10-05 11:40] LABS: Glucose - Point of Care 149 mg/dl (70-99)
--- NOTE | 2024-10-05 12:04 | CM ---
CM reviewed chart, referral received for Hospice. Patient seen bedside, patient agreeable to discussion with Hospice, reports he will have family visiting at some point today. Referral placed to Hospice, TT to youth corrections officer [employer] Surfacing Machine Operator, Kaylee.
Patient confirms that prior to coming into the Hospital he was living independently, was looking into rehab. CM will continue to follow for all discharge planning needs.
Plan; hospice consult
--- NOTE | 2024-10-05 12:30 | HOSPNOTE ---
Notified by CM of hospice referral. I called and spoke to the patient via the phone. He has no knowledge of hospice and would like to have a conversation with his and son present to discuss hospice. He believes the family would be able to come
to the hospital Monday to have this conversation. He declined us coming to just speak to him directly about hospice. He is going to get in touch with his family and let us know if they are able to come to the hospital sooner. I asked him to notify
his primary nurse of this update and she will update me as well. Primary nurse and CM updated. Hospice will continue to follow and be available.
[2024-10-05 15:05] VITALS: BP 102/50
[2024-10-05 17:17] LABS: Glucose - Point of Care 227 mg/dl (70-99)
[2024-10-05] MEDS: NOVOLOG FLEXPEN-LOW RESISTANCE 2 UNITS SC (17:36)
[2024-10-05] MEDS: ROXICODONE 5 MG PO (17:44)
--- NOTE | 2024-10-05 18:30 | PTCARENOTE ---
Patient had large, black, tarry stool. Pt requests no more stool regimen, no lactulose. New sacral foam applied, legs propped up on pillows, pt comfortable with call mcleod within reach.
[2024-10-05] MEDS: DUPHALAC/CHRONULAC PO (20:15)
[2024-10-05 21:23] LABS: Glucose - Point of Care 110 mg/dl (70-99)
[2024-10-05 23:15] VITALS: BP 105/59
[2024-10-06] MEDS: ROXICODONE 5 MG PO ×3 (05:40→17:41)
[2024-10-06 07:37] LABS: Glucose - Point of Care 106 mg/dl (70-99)
[2024-10-06] MEDS: ELIQUIS 10 MG PO ×2 (07:37→20:51)
[2024-10-06] MEDS: SODIUM BICARBONATE 650 MG PO ×3 (07:37→20:51)
[2024-10-06] MEDS: NOVOLOG FLEXPEN-LOW RESISTANCE SC ×2 (07:37→11:15)
[2024-10-06] MEDS: DUPHALAC/CHRONULAC PO (07:49)
[2024-10-06] MEDS: SENOKOT PO (07:49)
[2024-10-06] MEDS: MIRALAX PO (07:49)
[2024-10-06 07:52] LABS: INR 4.47
[2024-10-06 07:59] VITALS: BP 94/53
[2024-10-06 08:02] LABS: % Basophils 0.3 % (0-2); % Eosinophils 0.2 % (0-6); % Immature Granulocytes 0.9 % (0-0.5); % Lymphocytes 21.5 % (20.5-51.1); % Monocytes 10.2 % (1.7-9.3); % Neutrophils 66.9 % (42.2-75.2); Absolute Immature Granulocytes 0.1 10^3/uL (0-0.05); Absolute Lymphocytes 2.3 10^3/uL (1.2-3.4); Absolute Monocytes 1.1 10^3/uL (0.1-0.6); Absolute Neutrophils 7.1 10^3/uL (1.4-6.5); Hematocrit 31.5 % (39.0-52.0); Hemoglobin 10.2 g/dL (13.0-18.0); Mean Corp Hgb Conc. 32.4 g/dL (33.0-37.0); Mean Corpuscular Hgb 27.1 pg (27.0-31.0); Mean Corpuscular Volume 83.8 fL (80.0-94.0); Nucleated Red Blood Cells % 0 % (-); Platelet Count 115 10^3/uL (130-400); Red Blood Cell Count 3.76 10^6/uL (4.70-6.10); Red Cell Dist. Width 21.8 % (11.5-14.5); White Blood Cell Count 10.5 10^3/uL (4.8-10.8)
[2024-10-06 08:33] LABS: ALT (SGPT) 161 U/L (0-50); AST (SGOT) 285 U/L (17-59); Albumin 2.5 g/dl (3.5-5.0); Alkaline Phosphatase 948 U/L (38-126); Blood Urea Nitrogen 75 mg/dl (9-20); Carbon Dioxide 22 mmol/L (22-30); Chloride 99 mmol/L (98-107); Estimated Creatinine Clearance 49 ml/min; Glucose 111 mg/dl (70-99); Magnesium 2.6 mg/dl (1.6-2.3); Potassium 5.6 mmol/L (3.5-5.1); Sodium 129 mmol/L (135-145); Total Bilirubin 3.5 mg/dl (0.2-1.3); Total Protein 5.2 g/dl (6.3-8.2); eGFR 59.26
[2024-10-06] MEDS: DILAUDID 0.25 MG IV ×2 (08:45→16:30)
--- NOTE | 2024-10-06 08:49 | W.PN.HOSP.TC ---
Today's Communication/Plan
-
Fluid restriction. PT OT. Hospice discussions
Assessment / Plan
Assessment / Plan
Physical exam:
General: Chronically ill
HEENT: Normocephalic, Atraumatic and Moist Mucous Membranes
Respiratory: Clear to Auscultation; Negative Wheezes, Rales or Rhonchi
Cardiac: Regular Rhythm and S1/S2
GI: Soft, tender and Nondistended
Musculoskeletal: No Clubbing, No Cyanosis. Left lower extremity edema better
Neuro: Awake, Alert and Oriented, generalized weakness
Psych: Calm
A/P:
Generalized weakness and falls:
Likely dehydration and diarrhea and acute DVT and hyponatremia and contributing acutely and underlying malignancy and malnutrition contributing chronically
PT OT recommends rehab
Discussed with family over the phone prior
Discussed with continuous pillowcase cutter prior and plan to go to rehab when medically stable but await for hospice discussions first.
Continue pain control-I asked patient if he wanted me to increase pain medications or continue with the same and he wants to continue the same and see how he does with that.
Continue fluid restriction intake
Continue protein shake
Hospice consulted yesterday.
Discussed about the possibility of hospice and also discussed about CODE STATUS and he wants to remain full code but open to discussions with hospice and he will think about pros and cons. Patient touched base with hospice yesterday and he would
like hospice to come tomorrow and to discuss with him and his family in detail.
Left lower extremity new DVT:
Started Eliquis on 09/30 of 10 mg twice a day for a week and then 5 mg twice a day
Held aspirin
Hematology oncology consult
Oncology planning to do liver ultrasound testicular ultrasound during serial tumor markers MSI testing and tumor tissue, outpatient PET scan. Scrotum ultrasound unremarkable except for very small left hydrocele.
Hyponatremia:
Sodium 129 today
We will increase fluid restriction to less than 1200 cc for 24 hours
Appreciate nephrology consult and follow-up
Prior to today:
Sodium 130 today after 3% saline by nephrology yesterday.
Nephrology consult appreciated
Will request nephrology consult for further advice
Continue fluid restriction
Monitor sodium in a.m.
Metastatic disease germ cell carcinoma:
Recent biopsy with poorly differentiated carcinoma
Oncology eval and planning to do liver ultrasound testicular ultrasound during serial tumor markers MSI testing and tumor tissue, outpatient PET scan.
Oncology also noticed poor functional status and PS currently marginal for chemotherapy
After rehab might need to discuss chemo versus hospice depending on how he does clinically but I also think is best to have conversations of this nature while he is in the hospital since he has been profoundly weak.
Left portal vein thrombosis:
On anticoagulant
Chronic diarrhea:
Improved
Infectious workup negative back on 09/18 on last hospitalization
Discontinue Imodium
Constipation:
Improved
Had bowel movement yesterday
Does not want any more bowel regimen so discontinued today
Abdominal pain:
Improved
Pain control
TREVIN:
Improved
Stop IV fluid
Encourage oral intake
Metabolic acidosis:
Off bicarb drip
Resume oral bicarb
Hypotension:
Improved
Off IVF
Normal cortisol level
Hypertension:
Meds discontinued recently last hospitalization
Hold Hytrin
Hyperlipidemia:
Hold statin
Elevated LFTs:
Likely mets related
Hold acetaminophen and statins
Trend
Diabetes mellitus:
Insulin sliding scale
Hold metformin
Moderate protein calorie malnutrition:
Monitor calorie intake
Added protein shake
Anemia:
Continue to monitor
BPH:
Hold Hytrin 10 mg p.o. nightly
Check bladder scan post-void
Thrombocytopenia:
Monitor platelet count
Third spacing:
low dose iv diuretic
albumin if needed
DVT prophylaxis:
On Eliquis now
CODE STATUS:
Full code
Anticipated Discharge: 24 - 48 hours
Subjective/Interval History
-
Date of Service: October 06, 2024
Patient still very weak. Not eating much. Pain on and off. Had bowel movement yesterday and would like not to take any more bowel regimen. Afebrile
Objective Data
-
Labs:
Laboratory Results
10/06/24
07:29
WBC 10.5
Hgb 10.2 L
Hct 31.5 L
Plt Count 115 L
PT 42.0 H
INR 4.47
Sodium 129 L
Potassium 5.6 H
Chloride 99
Carbon Dioxide 22
BUN 75 H
Creatinine 1.2
Glucose 111 H
Calcium 9.0
Total Bilirubin 3.5 H
AST 285 H
ALT 161 H
Alkaline Phosphatase 948 H
Vital Signs:
Vital Signs
Temp Pulse Resp BP Pulse Ox
98.7 F 107 19 94/53 93
10/06/24 07:59 10/06/24 07:59 10/06/24 07:59 10/06/24 07:59 10/06/24 07:59
I&O
10/05/24 10/06/24 10/07/24
06:59 06:59 06:59
Intake Total 1800 / 1800 240 / 240
Output Total 1120 / 1120 200 / 200
Balance 680 / 680 40 / 40
[2024-10-06 09:48] VITALS: BP 113/67
[2024-10-06 11:13] LABS: Glucose - Point of Care 138 mg/dl (70-99)
--- NOTE | 2024-10-06 12:02 | W.PN.NEPH.PH ---
Today's Communication / Plan
-
Changed to a low potassium diet with a potassium of 5.6
Assessment/Plan
-
Impression:
Metastatic germ cell carcinoma
Hyponatremia
Hypertension
Diabetes
Left lower extremity DVT
Chronic diarrhea
Metabolic acidosis
Elevated LFTs
Hypoalbuminemia
Plan:
Hyponatremia
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
-Exacerbated with normal saline administration which is consistent with SIADH
-Urine sodium less than 5 (consistent with hypovolemia)
-Urine osmolality 462 (consistent with excess ADH)
-Albumin of 2.2 consistent with underlying malignancy and compromised effective circulating volume and remains hypotensive
Status post 3% saline with improvement to serum sodium of 130
I asked him to do his best to increase protein in his diet
Will trend his sodium and if and suggest he restrict his fluid intake to 1200 mL
Current sodium 129
Now with potassium 5.6 will change to testing diet
Hospice consulted today
-
-
Date of Service: October 06, 2024
CC / HPI / ROS
-
Chief Complaint:
Hyponatremia
History of Present Illness:
Hyponatremia 126 on admission
Current 129
Review of Systems:
No chest pain or shortness of breath
Poor appetite
Labs
-
Labs:
WBC 10.5 10^3/uL (4.8-10.8) 10/06/24 07:29
RBC 3.76 10^6/uL (4.70-6.10) L 10/06/24 07:29
Hgb 10.2 g/dL (13.0-18.0) L 10/06/24 07:29
Hct 31.5 % (39.0-52.0) L 10/06/24 07:29
Plt Count 115 10^3/uL (130-400) L 10/06/24 07:29
Sodium 129 mmol/L (135-145) L 10/06/24 07:29
Potassium 5.6 mmol/L (3.5-5.1) H 10/06/24 07:29
Chloride 99 mmol/L (98-107) 10/06/24 07:29
Carbon Dioxide 22 mmol/L (22-30) 10/06/24 07:29
BUN 75 mg/dl (9-20) H 10/06/24 07:29
Creatinine 1.2 mg/dL (0.7-1.3) 10/06/24 07:29
eGFR 59.26 10/06/24 07:29
Glucose 111 mg/dl (70-99) H 10/06/24 07:29
Calcium 9.0 mg/dl (8.4-10.2) 10/06/24 07:29
Phosphorus 4.0 mg/dl (2.5-4.5) 10/06/24 07:29
Albumin 2.5 g/dl (3.5-5.0) L 10/06/24 07:29
Physical Exam
-
Vital Signs:
Vital Signs
Temp Pulse Resp BP Pulse Ox
98.7 F 107 19 113/67 93
10/06/24 07:59 10/06/24 07:59 10/06/24 07:59 10/06/24 09:48 10/06/24 07:59
Respiratory:: Bilateral: CTA
Lung Excursion:: Normal
Abdomen:: Soft
Bowel Sounds:: Normal
Extremity Edema:: None: Bilateral:
Tobar Catheter: No
[2024-10-06 15:02] VITALS: BP 94/57
--- NOTE | 2024-10-06 15:22 | HOSPNOTE ---
PRIMARY NURSE NOTIFIED HOSPICE NURSE THAT PATIENT AND HIS FAMILY WILL BE PRESENT AND AVAILABLE FOR IN PERSON INTRODUCTION TO HOSPICE AT 11 AM. THONG REYNOSO LIABELINDA WILL MEET WITH FAMILY TOMORROW AT 11 AM TO DISCUSS. HOSPICE CONTINUES TO BE
AVAILABLE AND FOLLOWING FOR SUPPORT. MORE INFORMATION TO FOLLOW AFTER TOMORROWS DISCUSSION.
[2024-10-06 15:51] LABS: Glucose - Point of Care 185 mg/dl (70-99)
[2024-10-06] MEDS: NOVOLOG FLEXPEN-LOW RESISTANCE 1 UNITS SC (16:30)
[2024-10-06 21:56] LABS: Glucose - Point of Care 142 mg/dl (70-99)
--- NOTE | 2024-10-06 22:03 | PTCARENOTE ---
Rec'd pt awake and alert. denies pain. He did have trouble with drinking from straw as his mouth was very dry. water placed in medicine cup as it was easier for him to drink the water with his medications. call mcleod in reach.
[2024-10-06 23:08] VITALS: BP 100/58
[2024-10-07] MEDS: DILAUDID 0.25 MG IV ×3 (04:40→18:12)
[2024-10-07] MEDS: ROXICODONE 5 MG PO ×2 (05:47→20:56)
[2024-10-07 06:00] VITALS: BMI 24.2
[2024-10-07 07:36] VITALS: BP 88/45
[2024-10-07 07:53] LABS: Glucose - Point of Care 126 mg/dl (70-99)
[2024-10-07 08:02] LABS: PT 52.6 Sec (11.4-14.6)
[2024-10-07 08:05] LABS: INR 6.02
[2024-10-07] MEDS: NOVOLOG FLEXPEN-LOW RESISTANCE SC ×3 (08:05→16:38)
[2024-10-07 08:12] LABS: % Basophils 0.3 % (0-2); % Eosinophils 0.1 % (0-6); % Immature Granulocytes 0.6 % (0-0.5); % Lymphocytes 18.8 % (20.5-51.1); % Monocytes 12.1 % (1.7-9.3); % Neutrophils 68.1 % (42.2-75.2); Absolute Immature Granulocytes 0.1 10^3/uL (0-0.05); Absolute Lymphocytes 1.8 10^3/uL (1.2-3.4); Absolute Monocytes 1.2 10^3/uL (0.1-0.6); Absolute Neutrophils 6.7 10^3/uL (1.4-6.5); Hematocrit 29.2 % (39.0-52.0); Hemoglobin 9.3 g/dL (13.0-18.0); Mean Corp Hgb Conc. 31.8 g/dL (33.0-37.0); Mean Corpuscular Volume 84.6 fL (80.0-94.0); Nucleated Red Blood Cells % 0.4 % (-); Red Blood Cell Count 3.45 10^6/uL (4.70-6.10); Red Cell Dist. Width 22.3 % (11.5-14.5); White Blood Cell Count 9.8 10^3/uL (4.8-10.8)
[2024-10-07 08:14] LABS: ALT (SGPT) 185 U/L (0-50); AST (SGOT) 394 U/L (17-59); Albumin 2.4 g/dl (3.5-5.0); Alkaline Phosphatase 1004 U/L (38-126); Blood Urea Nitrogen 88 mg/dl (9-20); Calcium 8.5 mg/dl (8.4-10.2); Carbon Dioxide 21 mmol/L (22-30); Chloride 95 mmol/L (98-107); Estimated Creatinine Clearance 35 ml/min; Glucose 125 mg/dl (70-99); Magnesium 2.5 mg/dl (1.6-2.3); Potassium 5.9 mmol/L (3.5-5.1); Sodium 129 mmol/L (135-145); Total Bilirubin 4.6 mg/dl (0.2-1.3); eGFR 39.02
[2024-10-07 08:39] LABS: Phosphorus 4.7 mg/dl (2.5-4.5); Total Protein 4.8 g/dl (6.3-8.2)
[2024-10-07 08:58] LABS: Platelet Count 112 10^3/uL (130-400)
[2024-10-07 08:59] LABS: Anisocytosis 1+; Hypochromasia 2+; Normal RBC Morphology No; Ovalocytes 1+; Polychromasia 1+; Target Cells 1+
[2024-10-07] MEDS: NSS 500 IV (09:19)
[2024-10-07] MEDS: SODIUM BICARBONATE 650 MG PO ×3 (09:51→20:24)
[2024-10-07] MEDS: NSS 1000 IV (09:51)
[2024-10-07] MEDS: ELIQUIS 5 MG PO ×2 (09:51→20:24)
--- NOTE | 2024-10-07 10:03 | W.PN.ONC2 ---
Today's Communication / Plan
-
Hospice consult
Impression
Impression
Metastatic germ cell carcinoma indicated by liver biopsy, HCG <1,, AFP 9950, testicle US negative mets
DVT
Hyponatremia
Plan
Plan
Eliquis
germ cell tumor markers, PET pending OP, tumor markers pending
Options for lower intensity therapy would be oral etoposide or if MSI high then Keytruda. PS currently marginal for chemotherapy, however, pt considering pursuing comfort focused care
Subjective/Objective
Subjective
no new complaints
Vital Signs:
Vital Signs
Temp Pulse Resp BP Pulse Ox
98.9 F 93 18 88/45 95
10/07/24 07:36 10/07/24 07:36 10/07/24 07:36 10/07/24 07:36 10/07/24 07:36
Lab Results:
Laboratory Data
WBC 9.8 10^3/uL (4.8-10.8) 10/07/24 07:11
Hgb 9.3 g/dL (13.0-18.0) L 10/07/24 07:11
Plt Count 112 10^3/uL (130-400) L 10/07/24 07:11
PT 52.6 Sec (11.4-14.6) H 10/07/24 07:11
INR 6.02 H* 10/07/24 07:11
eGFR 39.02 10/07/24 07:11
Physical Exam
HEENT: No Jaundice
Cardiology: S1 and S2
Pulmonary: Clear
GI: Soft
Neuro: Non Focal
[2024-10-07] MEDS: MIRALAX PO (10:20)
[2024-10-07 10:38] VITALS: BP 118/61
[2024-10-07 11:14] LABS: Glucose - Point of Care 140 mg/dl (70-99)
[2024-10-07 12:20] VITALS: BP 118/59
--- NOTE | 2024-10-07 13:13 | HOSPNOTE ---
Met with family and patient to discuss hospice care and the philosophy. After our meeting patient's code status is changed to a DNR/DNI. The family understands hospice and still wishes for the patient to get blood work done and keep IV fluids
running since this am the patient's pressure was 80/40. The patient is in considerable amount of pain and the nurse will administer IV dilaudid. [facility] had a bed available today with hospice services, however the patient's pain is not
managed so the transport was cancelled. [facility] will not have a bed available until the beginning of the new year. I feel when the patient is ready the patient will be placed on comfort measures and I feel the patient may pass here at .
Hospice will continue to follow. I encouraged the family to have a long conversation today so we are able to manage the patient's pain properly. Will check in with patient tomorrow.
--- NOTE | 2024-10-07 14:38 | CM ---
CM reviewed chart, reviewed with Chelsea from Hospice, Hospice will follow patient as family continuing to have Hospice/comfort care discussions. CM will continue to be available, will continue to follow for all discharge planning needs. Update
to Daniel Cook that patient not coming for rehab today. CM will continue to follow for all discharge planning needs.
Plan; Hospice following, family discussions ongoing.
--- NOTE | 2024-10-07 15:49 | W.PN.HOSP.TC ---
Addendum entered and electronically signed by Delano Barton MD 10/07/24 16:19:
#Elevated INR
2/2 Eliquis
cannot reliably be used for the level of coagulopathy with Xa-inh. Can state that Eliquis working. repeat INR in AM, if further increase - might need to stop ELiquis.
Original Note:
Today's Communication/Plan
-
IVF
monitor labs
Nephrology to reassess
reeval in 24h for further GOC
Assessment / Plan
Assessment / Plan
84 yo man with HTN, DM, HLD metastatic cancer, liver bx with poorly diff carcinoma, markers most consistent with germ cell primary, came with falls and diarrhea found acute nonocclusive deep venous thrombosis in the left superficial femoral and
common femoral veins, hyponatremia with hyperkalemia. Patient with significant third spacing and poor oral intake. Developed TREVIN with worsening hyperkalemia while on fluid restriction for his hyponatremia as well as low blood pressures. With poor
functional status and multiple comorbidities patient is currently researchign on hospice option, meanwhile cont medical management of his renal abnormalities
A/P:
#Generalized weakness and falls
Likely dehydration and diarrhea and acute DVT and hyponatremia and contributing acutely and underlying malignancy and malnutrition contributing chronically
PT OT recommends rehab
Continue protein shake
#Hyponatremia
#TREVIN
#Hyperkalemia
As per nephrology - / ADH activity possible due to hypotension
Developed TREVIN on FR - start hydration and close BMP follow up
#Left lower extremity acute DVT:
Started Eliquis on 09/30 of 10 mg twice a day for a week and then 5 mg twice a day
Held aspirin
Hematology oncology consult
Scrotum ultrasound unremarkable except for very small left hydrocele.
#Metastatic disease germ cell carcinoma:
Recent biopsy with poorly differentiated carcinoma
Oncology eval and planning outpatient PET scan.
Oncology also noticed poor functional status and PS currently marginal for chemotherapy
Abd US: Extensive hepatic metastatic disease which is similar to CT given differences in imaging technique. There is nonocclusive thrombus within the left portal vein
CT: numerous bilateral pulmonary nodules which measure up to 2.3 cm in the medial left lower lobe and are likely pulmonary metastasis
#Left portal vein thrombosis
On anticoagulant
#Chronic diarrhea
Improved
Infectious workup negative back on 09/18 on last hospitalization
Discontinue Imodium
#Constipation
Improved
Does not want any more bowel regimen so discontinued
#Abdominal pain 2/2 metastatic disease to the liver
#Transaminitis 2/2 metastatic disease
Pain control
#Moderate protein calorie malnutrition:
Monitor calorie intake
Added protein shake
#Anemia
#Thrombocytopenia
2/2 CA
no overt bleeding
Continue to monitor
#BPH
Watch for urinary retention
#GOC
with poor functional status - hospice consult as it might be apropriate
DVT ppx on ELiquis
DNR/DNI - as discussed in details with family and patient on 10/07/24
I have spent at least 58min reviewing chart, test results, communication with consultants and direct patien care
Anticipated Discharge: > 48 hours
Subjective/Interval History
-
Date of Service: October 07, 2024
Objective Data
-
Labs:
Laboratory Results
10/07/24 10/07/24 10/07/24
07:11 15:00 20:19
WBC 9.8
Hgb 9.3 L
Hct 29.2 L
Plt Count 112 L
PT 52.6 H
INR 6.02 H*
Sodium 129 L Pending Pending
Potassium 5.9 H Pending Pending
Chloride 95 L Pending Pending
Carbon Dioxide 21 L Pending Pending
BUN 88 H Pending Pending
Creatinine 1.7 H Pending Pending
Glucose 125 H Pending Pending
Calcium 8.5 Pending Pending
Total Bilirubin 4.6 H
AST 394 H
ALT 185 H
Alkaline Phosphatase 1004 H
Vital Signs:
Vital Signs
Temp Pulse Resp BP Pulse Ox
98.9 F 91 18 118/59 94
10/07/24 07:36 10/07/24 12:20 10/07/24 07:36 10/07/24 12:20 10/07/24 12:20
I&O
10/06/24 10/07/24 10/08/24
06:59 06:59 06:59
Intake Total 240 / 240 1440 / 1440
Output Total 200 / 200 600 / 600
Balance 40 / 40 840 / 840
Review of Systems
-
History Source: Patient
All other systems: Reviewed and negative
Physical Exam
-
General: No Apparent Distress, Appears Chronically Ill and Cachectic
Respiratory: Clear to Auscultation
Cardiac: Regular Rhythm
GI: Soft, Nondistended and Tender (RUQ)
Musculoskeletal: No Clubbing, No Cyanosis and No Edema
Skin: Warm
Neuro: Awake, Alert, Oriented and AO x 3
Psych: Calm
[2024-10-07 16:19] VITALS: BP 117/57
[2024-10-07 16:35] LABS: Glucose - Point of Care 146 mg/dl (70-99)
[2024-10-07] MEDS: MEPHYTON 2.5 MG PO (17:16)
--- NOTE | 2024-10-07 18:15 | W.PN.NEPH.PH ---
Today's Communication / Plan
-
IVF, bladder scan
LOkelma
follow repeat labs
Assessment/Plan
-
Impression:
Metastatic germ cell carcinoma
Hyponatremia
Hypertension
Diabetes
Left lower extremity DVT
Chronic diarrhea
Metabolic acidosis
Elevated LFTs
Hypoalbuminemia
Plan:
Hyponatremia
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
-Exacerbated with normal saline administration which is consistent with SIADH
-Urine sodium less than 5 (consistent with hypovolemia)
-Urine osmolality 462 (consistent with excess ADH)
-Albumin of 2.2 consistent with underlying malignancy and compromised effective circulating volume and remains hypotensive
sodium relatively stable 129, maintain FR
TREVIN and hyperkalemia today-no clear etiology
IVF started by primary
chr met acidosis on po bicarb
will give dose of Lokelma , non oliguric
check bladder scan, low threshold for fermin if needed
eventual hospice noted
-
-
Date of Service: October 07, 2024
CC / HPI / ROS
-
Chief Complaint:
Hyponatremia
History of Present Illness:
Hyponatremia 129 relatively stable
Bp stable
po intake is poor
UOP non oliguric
k up at 5.9, cr up 1.7, azotemia worse 88
Review of Systems:
No chest pain or shortness of breath
Poor appetite
Labs
-
Labs:
WBC 9.8 10^3/uL (4.8-10.8) 10/07/24 07:11
RBC 3.45 10^6/uL (4.70-6.10) L 10/07/24 07:11
Hgb 9.3 g/dL (13.0-18.0) L 10/07/24 07:11
Hct 29.2 % (39.0-52.0) L 10/07/24 07:11
Plt Count 112 10^3/uL (130-400) L 10/07/24 07:11
eGFR 39.02 10/07/24 07:11
Phosphorus 4.7 mg/dl (2.5-4.5) H 10/07/24 07:11
Albumin 2.4 g/dl (3.5-5.0) L 10/07/24 07:11
Physical Exam
-
Vital Signs:
Vital Signs
Temp Pulse Resp BP Pulse Ox
97.7 F 90 19 117/57 94
10/07/24 16:19 10/07/24 16:19 10/07/24 16:19 10/07/24 16:19 10/07/24 16:19
Cardiovascular:: Regular rate and rhythm
Respiratory:: Bilateral: CTA
Lung Excursion:: Normal
Abdomen:: Nontender and Soft
Extremity Edema:: +1: Bilateral:
Fermin Catheter: No
[2024-10-07 18:43] LABS: Blood Urea Nitrogen 87 mg/dl (9-20); Calcium 8.2 mg/dl (8.4-10.2); Carbon Dioxide 20 mmol/L (22-30); Chloride 95 mmol/L (98-107); Estimated Creatinine Clearance 40 ml/min; Glucose 131 mg/dl (70-99); Potassium 5.6 mmol/L (3.5-5.1); Sodium 127 mmol/L (135-145); eGFR 45.34
[2024-10-07 19:05] LABS: Urine Albumin Trace (Neg - Trace); Urine Bilirubin 1+ (Negative); Urine Character Clear (Clear); Urine Color Yellow; Urine Glucose Negative (Negative); Urine Ketone Negative (Negative); Urine Leukocyte Negative (Negative); Urine Nitrite Negative (Negative); Urine Occult Blood Negative (Negative); Urine Specific Gravity 1.015 (<1.030); Urine Urobilinogen Negative (Neg - 1+)
[2024-10-07 21:06] LABS: Blood Urea Nitrogen 86 mg/dl (9-20); Calcium 8.2 mg/dl (8.4-10.2); Carbon Dioxide 20 mmol/L (22-30); Chloride 94 mmol/L (98-107); Estimated Creatinine Clearance 40 ml/min; Glucose 124 mg/dl (70-99); Potassium 5.3 mmol/L (3.5-5.1); Sodium 126 mmol/L (135-145); eGFR 45.34
[2024-10-07 21:53] LABS: Glucose - Point of Care 130 mg/dl (70-99)
[2024-10-07 23:13] VITALS: BP 106/50
[2024-10-08] MEDS: DILAUDID 0.25 MG IV ×2 (04:20→10:41)
--- NOTE | 2024-10-08 04:54 | PTCARENOTE ---
3 attempts made to draw pt's morning labs. Pt refused any other attempts stating ' I don't want this anymore.' RECYCLING OPERATOR made aware. will message hospice nurse at 7am to update on what pt is telling RN.
[2024-10-08 06:00] VITALS: BMI 24.1
[2024-10-08] MEDS: ROXICODONE 5 MG PO (06:05)
[2024-10-08 07:48] VITALS: BP 88/51
[2024-10-08 08:07] LABS: Glucose - Point of Care 123 mg/dl (70-99)
[2024-10-08] MEDS: NOVOLOG FLEXPEN-LOW RESISTANCE SC (08:19)
[2024-10-08] MEDS: MIRALAX PO (08:20)
[2024-10-08] MEDS: SODIUM BICARBONATE PO (08:20)
--- NOTE | 2024-10-08 08:53 | W.PN.ONC2 ---
Today's Communication / Plan
-
Continue GOC conversation -expresses that he would like to focus on comfort and does not plan to pursue further evaluation or treatment of his malignancy.
monitor for bleeding on DOAC
symptom support
Impression
Impression
Metastatic germ cell carcinoma indicated by liver biopsy, HCG <1,, AFP 9950, testicle US negative mets
DVT
Hyponatremia
Plan
Plan
Eliquis
germ cell tumor markers, PET pending OP, tumor markers pending
Options for lower intensity therapy would be oral etoposide or if MSI high then Keytruda. PS currently marginal for chemotherapy, however, pt considering pursuing comfort focused care
Subjective/Objective
Subjective
Tmax 99F, hypotensive, no hypoxia
using hydromorphone and oxy IR prn pain
Vital Signs:
Vital Signs
Temp Pulse Resp BP Pulse Ox
99 F 103 18 88/51 97
10/08/24 07:48 10/08/24 07:48 10/08/24 07:48 10/08/24 07:48 10/08/24 07:48
Lab Results:
Laboratory Data
WBC 9.8 10^3/uL (4.8-10.8) 10/07/24 07:11
Hgb 9.3 g/dL (13.0-18.0) L 10/07/24 07:11
Plt Count 112 10^3/uL (130-400) L 10/07/24 07:11
PT 52.6 Sec (11.4-14.6) H 10/07/24 07:11
INR 6.02 H* 10/07/24 07:11
eGFR Cancelled 10/08/24 04:00
Physical Exam
HEENT: Moist Mucous Membranes; No Jaundice
Cardiology: Normal Sinus Rhythm
Pulmonary: Clear
GI: Soft
Extremities: Pulses Present and Edema
Neuro: Non Focal
Orders
Orders
Orders From Last 24 Hours
10/07/24 10:50
Case Management Consult ONCE
[2024-10-08 09:15] VITALS: BP 88/51
[2024-10-08] MEDS: ELIQUIS 5 MG PO (09:20)
--- NOTE | 2024-10-08 11:21 | W.PN.HOSP.TC ---
Today's Communication/Plan
-
started comfort care
Assessment / Plan
Assessment / Plan
84 yo man with HTN, DM, HLD metastatic cancer, liver bx with poorly diff carcinoma, markers most consistent with germ cell primary, came with falls and diarrhea found acute nonocclusive deep venous thrombosis in the left superficial femoral and
common femoral veins, hyponatremia with hyperkalemia. Patient with significant third spacing and poor oral intake. Developed TREVIN with worsening hyperkalemia while on fluid restriction for his hyponatremia as well as low blood pressures. With poor
functional status and multiple comorbidities. Patient finally declined blood test and meds in AM 10/08/24 and decided to pursue comfort care options only. He was emplaned in great details that active treatment will be stopped, no additional
diagnostic tests done and we will manage his symptoms only with morphine, ativan, laxatives, Tobar as needed. HE verbalized understanding that his Eliquis, Insulin will be stopped and agreeable with this approach. Hospice service will eval for GIP
A/P:
#Generalized weakness and falls
#Hyponatremia
#TREVIN
#Hyperkalemia
#Left lower extremity acute DVT:
#Metastatic disease germ cell carcinoma:
#Left portal vein thrombosis
#Chronic diarrhea
#Constipation
#Abdominal pain 2/2 metastatic disease to the liver
#Transaminitis 2/2 metastatic disease
#Moderate protein calorie malnutrition:
#Anemia
#Thrombocytopenia
#BPH
#GOC
DVT ppx NA
DNR/DNI - as discussed in details with family and patient on 10/07/24
I have spent at least 58min reviewing chart, test results, communication with consultants and direct patient care
Anticipated Discharge: > 48 hours
Subjective/Interval History
-
Date of Service: October 08, 2024
Objective Data
-
Labs:
Laboratory Results
10/08/24 10/08/24 10/08/24
04:00 04:00 04:00
WBC
Hgb
Hct
Plt Count
PT
INR
APTT
Sodium Pending Cancelled
Potassium Pending Cancelled
Chloride Pending
Carbon Dioxide
BUN
Creatinine
Glucose
Calcium
Total Bilirubin
AST
ALT
Alkaline Phosphatase
10/08/24 10/08/24 10/08/24
04:00 04:00 04:00
WBC
Hgb
Hct
Plt Count
PT
INR
APTT
Sodium
Potassium
Chloride Cancelled
Carbon Dioxide Pending Cancelled
BUN Pending Cancelled
Creatinine Pending
Glucose
Calcium
Total Bilirubin
AST
ALT
Alkaline Phosphatase
10/08/24 10/08/24 10/08/24
04:00 04:00 04:00
WBC
Hgb
Hct
Plt Count
PT
INR
APTT
Sodium
Potassium
Chloride
Carbon Dioxide
BUN
Creatinine Cancelled
Glucose Pending Cancelled
Calcium Pending Cancelled
Total Bilirubin Pending
AST Pending
ALT Pending
Alkaline Phosphatase Pending
10/08/24 10/08/24 10/08/24
06:00 12:00 20:00
WBC Pending
Hgb Pending
Hct Pending
Plt Count Pending
PT Pending
INR Pending
APTT Pending
Sodium Pending Pending
Potassium Pending Pending
Chloride Pending Pending
Carbon Dioxide Pending Pending
BUN Pending Pending
Creatinine Pending Pending
Glucose Pending Pending
Calcium Pending Pending
Total Bilirubin
AST
ALT
Alkaline Phosphatase
Vital Signs:
Vital Signs
Temp Pulse Resp BP Pulse Ox
99 F 103 18 88/51 97
10/08/24 07:48 10/08/24 07:48 10/08/24 07:48 10/08/24 07:48 10/08/24 07:48
I&O
10/07/24 10/08/24 10/09/24
06:59 06:59 06:59
Intake Total 1440 / 1440 900 / 900
Output Total 600 / 600 1797 / 1797
Balance 840 / 840 -897 / -897
Review of Systems
-
History Source: Patient
All other systems: Reviewed and negative
Abdomen/GI: Reports Abdominal Pain
Physical Exam
-
General: No Apparent Distress and Comfortable
HEENT: Moist Mucous Membranes
Respiratory: Clear to Auscultation
Cardiac: Irregular Rhythm
Neuro: Awake, Alert, Oriented and AO x 3
Psych: Calm
--- NOTE | 2024-10-08 11:48 | HOSPNOTE ---
Met with patient and family. Everyone is in agreement with comfort measures. Spoke with Attending and will discontinue all testing and blood draws and focus on comfort and pain management. We will see how the patient does in 24 hours and will
continue to follow and support.
--- NOTE | 2024-10-08 13:02 | W.PN.NEPH.PH ---
Today's Communication / Plan
-
comfort care
Assessment/Plan
-
Impression:
Metastatic germ cell carcinoma
Hyponatremia
Hypertension
Diabetes
Left lower extremity DVT
Chronic diarrhea
Metabolic acidosis
Elevated LFTs
Hypoalbuminemia
Plan:
Hyponatremia
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
-Exacerbated with normal saline administration which is consistent with SIADH
-Urine sodium less than 5 (consistent with hypovolemia)
-Urine osmolality 462 (consistent with excess ADH)
-Albumin of 2.2 consistent with underlying malignancy and compromised effective circulating volume and remains hypotensive
sodium decreased again with IVF, maintain FR
TREVIN and hyperkalemia -no clear etiology
cr better at 1.5 post IVF
chr met acidosis stable on po bicarb
k is improving post Lokelma
pt is requesting to be on comfort care-which seem appropriate
will s/o, call with ?s
-
-
Date of Service: October 08, 2024
CC / HPI / ROS
-
Chief Complaint:
Hyponatremia
History of Present Illness:
Hyponatremia 126 down s/p IVF
Bp low this am
po intake is poor
UOP non oliguric
k up at 5.3, cr onw to 1.5, azotemia 86
Review of Systems:
No chest pain or shortness of breath
Poor appetite
persistent pain in the bottom, can not tolerate
Labs
-
Labs:
WBC Cancelled 10/08/24 06:00
RBC Cancelled 10/08/24 06:00
Hgb Cancelled 10/08/24 06:00
Hct Cancelled 10/08/24 06:00
Plt Count Cancelled 10/08/24 06:00
Sodium Cancelled 10/08/24 20:00
Potassium Cancelled 10/08/24 20:00
Chloride Cancelled 10/08/24 20:00
Carbon Dioxide Cancelled 10/08/24 20:00
BUN Cancelled 10/08/24 20:00
Creatinine Cancelled 10/08/24 20:00
eGFR Cancelled 10/08/24 20:00
Glucose Cancelled 10/08/24 20:00
Calcium Cancelled 10/08/24 20:00
Phosphorus 4.7 mg/dl (2.5-4.5) H 10/07/24 07:11
Albumin Cancelled 10/08/24 04:00
Physical Exam
-
Vital Signs:
Vital Signs
Temp Pulse Resp BP Pulse Ox
99 F 103 18 88/51 97
10/08/24 07:48 10/08/24 07:48 10/08/24 07:48 10/08/24 07:48 10/08/24 07:48
Cardiovascular:: Regular rate and rhythm
Respiratory:: Bilateral: CTA (anteriorly)
Lung Excursion:: Normal
Abdomen:: Nontender and Soft
Extremity Edema:: +3: Bilateral:
Tobar Catheter: No
[2024-10-08] MEDS: DILAUDID 0.5 MG IV ×3 (13:03→19:48)
--- NOTE | 2024-10-08 13:38 | CM ---
Patient family here to meet with Hospice and plan is for comfort. Hospice continuing to follow. CM will continue to follow for discharge planning needs.
PLan; comfort care, hospice- [facility] following
--- NOTE | 2024-10-08 14:05 | WOUNDNOTE ---
GEOVANNA RN NOTE: Will cancel wound consult, patient now on comfort measures/hospice.
[2024-10-08 15:23] VITALS: BP 116/57
[2024-10-08] MEDS: ATIVAN 0.5 MG PO (18:43)
[2024-10-08 23:30] VITALS: BP 93/54
[2024-10-09] MEDS: DILAUDID 0.5 MG IV ×4 (03:17→16:03)
[2024-10-09] MEDS: ATIVAN 0.5 MG PO ×5 (04:06→21:01)
[2024-10-09 07:00] VITALS: BP 86/50
[2024-10-09] MEDS: MIRALAX PO (07:18)
--- NOTE | 2024-10-09 11:35 | W.PN.HOSP.TC ---
Today's Communication/Plan
-
continue comfort care measures
Assessment / Plan
Assessment / Plan
84 yo man with HTN, DM, HLD metastatic cancer, liver bx with poorly diff carcinoma, markers most consistent with germ cell primary, came with falls and diarrhea found acute nonocclusive deep venous thrombosis in the left superficial femoral and
common femoral veins, hyponatremia with hyperkalemia. Patient with significant third spacing and poor oral intake. Developed TREVIN with worsening hyperkalemia while on fluid restriction for his hyponatremia as well as low blood pressures. With poor
functional status and multiple comorbidities. Patient finally declined blood test and meds in AM 10/08/24 and decided to pursue comfort care options only. He was emplaned in great details that active treatment will be stopped, no additional
diagnostic tests done and we will manage his symptoms only with morphine, ativan, laxatives, Tobar as needed. HE verbalized understanding that his Eliquis, Insulin will be stopped and agreeable with this approach. Hospice service will eval for GIP
A/P:
#Generalized weakness and falls
#Hyponatremia
#TREVIN
#Hyperkalemia
#Left lower extremity acute DVT:
#Metastatic disease germ cell carcinoma:
#Left portal vein thrombosis
#Chronic diarrhea
#Constipation
#Abdominal pain 2/2 metastatic disease to the liver
#Transaminitis 2/2 metastatic disease
#Moderate protein calorie malnutrition:
#Anemia
#Thrombocytopenia
#BPH
#GOC
COnt comfort care measures
DVT ppx NA
DNR/DNI - as discussed in details with family and patient on 10/07/24
I have spent at least 38min reviewing chart, test results, communication with consultants and direct patient care
Anticipated Discharge: 24 - 48 hours
Subjective/Interval History
-
Date of Service: October 09, 2024
Objective Data
-
Vital Signs:
Vital Signs
Temp Pulse Resp BP Pulse Ox
97.7 F 97 16 86/50 95
10/09/24 07:00 10/09/24 07:00 10/09/24 07:00 10/09/24 07:00 10/09/24 07:00
I&O
10/08/24 10/09/24 10/10/24
06:59 06:59 06:59
Intake Total 900 / 900 801 / 801
Output Total 1797 / 1797 300 / 300
Balance -897 / -897 501 / 501
Review of Systems
-
History Source: Patient
All other systems: Reviewed and negative
Physical Exam
-
General: Comfortable
Neuro: Awake, Alert, Oriented and AO x 3
Psych: Calm
--- NOTE | 2024-10-09 19:42 | VATNOTE ---
attempted x3 for IV restart; unsuccessful. Another VAT RN to attempt.
[2024-10-09 23:30] VITALS: BP 108/62
[2024-10-10 07:15] VITALS: BP 111/64
[2024-10-10] MEDS: MIRALAX PO (07:26)
--- NOTE | 2024-10-10 10:13 | HOSPNOTE ---
Hospice continues to follow for support. Recommend continuing comfort care measures. Spoke to Primary RN who reports patient is comfortable on current regimen. Hospice remains available for support.
--- NOTE | 2024-10-10 11:17 | W.PN.HOSP.TC ---
Today's Communication/Plan
-
continue comfort care
Assessment / Plan
Assessment / Plan
84 yo man with HTN, DM, HLD metastatic cancer, liver bx with poorly diff carcinoma, markers most consistent with germ cell primary, came with falls and diarrhea found acute nonocclusive deep venous thrombosis in the left superficial femoral and
common femoral veins, hyponatremia with hyperkalemia. Patient with significant third spacing and poor oral intake. Developed TREVIN with worsening hyperkalemia while on fluid restriction for his hyponatremia as well as low blood pressures. With poor
functional status and multiple comorbidities. Patient finally declined blood test and meds in AM 10/08/24 and decided to pursue comfort care options only. He was emplaned in great details that active treatment will be stopped, no additional
diagnostic tests done and we will manage his symptoms only with morphine, ativan, laxatives, Tobar as needed. HE verbalized understanding that his Eliquis, Insulin will be stopped and agreeable with this approach. Hospice service will eval for GIP
A/P:
#Generalized weakness and falls
#Hyponatremia
#TREVIN
#Hyperkalemia
#Left lower extremity acute DVT:
#Metastatic disease germ cell carcinoma:
#Left portal vein thrombosis
#Chronic diarrhea
#Constipation
#Abdominal pain 2/2 metastatic disease to the liver
#Transaminitis 2/2 metastatic disease
#Moderate protein calorie malnutrition:
#Anemia
#Thrombocytopenia
#BPH
#GOC
COnt comfort care measures
DVT ppx NA
DNR/DNI - as discussed in details with family and patient on 10/07/24
I have spent at least 38min reviewing chart, test results, communication with consultants and direct patient care
Anticipated Discharge: > 48 hours
Subjective/Interval History
-
Date of Service: October 10, 2024
Objective Data
-
Vital Signs:
Vital Signs
Temp Pulse Resp BP Pulse Ox
97.3 F 91 18 111/64 95
10/10/24 07:15 10/10/24 07:15 10/10/24 07:15 10/10/24 07:15 10/10/24 07:15
I&O
10/09/24 10/10/24 10/11/24
06:59 06:59 06:59
Intake Total 801 / 801 240 / 240
Output Total 300 / 300
Balance 501 / 501 240 / 240
Review of Systems
-
History Source: Patient
All other systems: Reviewed and negative
Physical Exam
-
General: Comfortable
Neuro: Awake and Alert
Psych: Calm
[2024-10-10] MEDS: DILAUDID 0.5 MG IV ×3 (11:31→19:05)
[2024-10-10] MEDS: ATIVAN 0.5 MG PO ×3 (11:31→19:11)
--- NOTE | 2024-10-10 14:45 | PTOTSP ---
Chart reviewed and spoke with RN.
Patient on hospice/comfort measures at this time and skilled therapy no longer indicated. Will discharge from caseload. If needs change, please re-consult.
[2024-10-10 15:20] VITALS: BP 90/48
--- NOTE | 2024-10-10 16:19 | CM ---
CM reviewed chart, patient remains on comfort care. Hospice following. CM will continue to follow for all discharge planning needs.
Plan; comfort care
[2024-10-10 23:55] VITALS: BP 125/73
[2024-10-11 00:27] VITALS: BP 125/73
[2024-10-11 06:00] VITALS: BMI 24.4
[2024-10-11 07:15] VITALS: BP 97/56
[2024-10-11] MEDS: ATIVAN 0.5 MG PO ×2 (08:04→12:57)
[2024-10-11] MEDS: MIRALAX PO (08:56)
--- NOTE | 2024-10-11 10:45 | CM ---
CM reviewed chart, patient remains on comfort care. CM will continue to be available to family/patient, will continue to follow for all discharge planning needs.
Plan; comfort care
--- NOTE | 2024-10-11 11:07 | HOSPNOTE ---
Hospice continues to follow for support. Spoke to Primary RN who reported patient is uncomfortable, refusing medications. Patient eventually took a dose of Po Ativan and was more comfortable after repositioning but was still refusing medications.
Our hospice nurse will come to assess patient in person and to provide education and support. Primary RN aware. More information to follow.
[2024-10-11] MEDS: DILAUDID 0.5 MG IV ×3 (12:57→21:31)
--- NOTE | 2024-10-11 13:21 | W.PN.HOSP.TC ---
Today's Communication/Plan
-
cont comfort care
Assessment / Plan
Assessment / Plan
84 yo man with HTN, DM, HLD metastatic cancer, liver bx with poorly diff carcinoma, markers most consistent with germ cell primary, came with falls and diarrhea found acute nonocclusive deep venous thrombosis in the left superficial femoral and
common femoral veins, hyponatremia with hyperkalemia. Patient with significant third spacing and poor oral intake. Developed TREVIN with worsening hyperkalemia while on fluid restriction for his hyponatremia as well as low blood pressures. With poor
functional status and multiple comorbidities. Patient finally declined blood test and meds in AM 10/08/24 and decided to pursue comfort care options only. He was emplaned in great details that active treatment will be stopped, no additional
diagnostic tests done and we will manage his symptoms only with morphine, ativan, laxatives, Tobar as needed. HE verbalized understanding that his Eliquis, Insulin will be stopped and agreeable with this approach. Hospice service will eval for GIP
A/P:
#Generalized weakness and falls
#Hyponatremia
#TREVIN
#Hyperkalemia
#Left lower extremity acute DVT:
#Metastatic disease germ cell carcinoma:
#Left portal vein thrombosis
#Chronic diarrhea
#Constipation
#Abdominal pain 2/2 metastatic disease to the liver
#Transaminitis 2/2 metastatic disease
#Moderate protein calorie malnutrition:
#Anemia
#Thrombocytopenia
#BPH
#GOC
COnt comfort care measures
DVT ppx NA
DNR/DNI - as discussed in details with family and patient on 10/07/24
I have spent at least 38min reviewing chart, test results, communication with consultants and direct patient care
Anticipated Discharge: > 48 hours
Subjective/Interval History
-
Date of Service: October 11, 2024
Objective Data
-
Vital Signs:
Vital Signs
Temp Pulse Resp BP Pulse Ox
97.5 F 80 18 97/56 96
10/11/24 07:15 10/11/24 07:15 10/11/24 07:15 10/11/24 07:15 10/11/24 08:00
I&O
10/10/24 10/11/24 10/12/24
06:59 06:59 06:59
Intake Total 240 / 240 200 / 200
Balance 240 / 240 200 / 200
Review of Systems
-
History Source: Patient
All other systems: Reviewed and negative
Physical Exam
-
General: Comfortable
Neuro: Awake, Alert and Oriented
Psych: Calm
[2024-10-11 15:15] VITALS: BP 90/53
[2024-10-12] MEDS: DILAUDID 0.5 MG IV ×3 (05:34→22:03)
[2024-10-12 07:00] VITALS: BP 98/58
[2024-10-12] MEDS: MIRALAX PO (08:21)
--- NOTE | 2024-10-12 11:16 | CM ---
Spoke with Belinda Lau from hospice.
Patient remains on comfort care
will reassess Monday if meets GIP
PLAN: continues on comfort care at present.
--- NOTE | 2024-10-12 11:47 | W.PN.HOSP.TC ---
Today's Communication/Plan
-
cont comfort care
recall hospice
Assessment / Plan
Assessment / Plan
84 yo man with HTN, DM, HLD metastatic cancer, liver bx with poorly diff carcinoma, markers most consistent with germ cell primary, came with falls and diarrhea found acute nonocclusive deep venous thrombosis in the left superficial femoral and
common femoral veins, hyponatremia with hyperkalemia. Patient with significant third spacing and poor oral intake. Developed TREVIN with worsening hyperkalemia while on fluid restriction for his hyponatremia as well as low blood pressures. With poor
functional status and multiple comorbidities. Patient finally declined blood test and meds in AM 10/08/24 and decided to pursue comfort care options only. He was emplaned in great details that active treatment will be stopped, no additional
diagnostic tests done and we will manage his symptoms only with morphine, ativan, laxatives, Tobar as needed. HE verbalized understanding that his Eliquis, Insulin will be stopped and agreeable with this approach. Hospice service will eval for GIP
A/P:
#Generalized weakness and falls
#Hyponatremia
#TREVIN
#Hyperkalemia
#Left lower extremity acute DVT:
#Metastatic disease germ cell carcinoma:
#Left portal vein thrombosis
#Chronic diarrhea
#Constipation
#Abdominal pain 2/2 metastatic disease to the liver
#Transaminitis 2/2 metastatic disease
#Moderate protein calorie malnutrition:
#Anemia
#Thrombocytopenia
#BPH
#GOC
COnt comfort care measures - recall hospice for GIP since patient is more somnolent
DVT ppx NA
DNR/DNI - as discussed in details with family and patient on 10/07/24
I have spent at least 38min reviewing chart, test results, communication with consultants and direct patient care
Anticipated Discharge: > 48 hours
Subjective/Interval History
-
Date of Service: October 12, 2024
Objective Data
-
Vital Signs:
Vital Signs
Temp Pulse Resp BP Pulse Ox
97.5 F 95 16 98/58 93
10/12/24 07:00 10/12/24 07:00 10/12/24 07:00 10/12/24 07:00 10/12/24 08:30
I&O
10/11/24 10/12/24 10/13/24
06:59 06:59 06:59
Intake Total 200 / 200 240 / 240
Balance 200 / 200 240 / 240
Review of Systems
-
Unable to obtain full review of systems at this time due to: Acuity
Physical Exam
-
General: Comfortable
Neuro: Negative Awake
[2024-10-12 15:00] VITALS: BP 83/48
[2024-10-12] MEDS: ATIVAN 0.5 MG PO (17:12)
[2024-10-12 23:08] VITALS: BP 75/43
[2024-10-13] MEDS: DILAUDID 0.5 MG IV ×2 (01:55→11:39)
[2024-10-13 07:00] VITALS: BP 73/41
[2024-10-13] MEDS: MIRALAX PO (07:41)
--- NOTE | 2024-10-13 09:18 | HOSPNOTE ---
Hospice will speak to this patients family this afternoon. Plan is to admit GIP 10/14/24 if family is in agreement.
--- NOTE | 2024-10-13 12:08 | W.PN.HOSP.TC ---
Today's Communication/Plan
-
cont comfort care mgmt
Plan is to admit GIP 10/14/24 if family is in agreement.
Assessment / Plan
Assessment / Plan
84 yo man with HTN, DM, HLD metastatic cancer, liver bx with poorly diff carcinoma, markers most consistent with germ cell primary, came with falls and diarrhea found acute nonocclusive deep venous thrombosis in the left superficial femoral and
common femoral veins, hyponatremia with hyperkalemia. Patient with significant third spacing and poor oral intake. Developed TREVIN with worsening hyperkalemia while on fluid restriction for his hyponatremia as well as low blood pressures. With poor
functional status and multiple comorbidities. Patient finally declined blood test and meds in AM 10/08/24 and decided to pursue comfort care options only. He was emplaned in great details that active treatment will be stopped, no additional
diagnostic tests done and we will manage his symptoms only with morphine, ativan, laxatives, Tobar as needed. HE verbalized understanding that his Eliquis, Insulin will be stopped and agreeable with this approach. Hospice service will eval for GIP
A/P:
#Generalized weakness and falls
#Hyponatremia
#TREVIN
#Hyperkalemia
#Left lower extremity acute DVT:
#Metastatic disease germ cell carcinoma:
#Left portal vein thrombosis
#Chronic diarrhea
#Constipation
#Abdominal pain 2/2 metastatic disease to the liver
#Transaminitis 2/2 metastatic disease
#Moderate protein calorie malnutrition:
#Anemia
#Thrombocytopenia
#BPH
#GOC
COnt comfort care measures - recall hospice for GIP since patient is more somnolent: Plan is to admit GIP 10/14/24 if family is in agreement.
DVT ppx NA
DNR/DNI - as discussed in details with family and patient on 10/07/24
I have spent at least 38min reviewing chart, test results, communication with consultants and direct patient care
Anticipated Discharge: 24 - 48 hours
Subjective/Interval History
-
Date of Service: October 13, 2024
Objective Data
-
Vital Signs:
Vital Signs
Temp Pulse Resp BP Pulse Ox
97.6 F 94 20 73/41 92
10/13/24 07:00 10/13/24 07:00 10/13/24 07:00 10/13/24 07:00 10/13/24 07:00
I&O
10/12/24 10/13/24 10/14/24
06:59 06:59 06:59
Intake Total 240 / 240
Balance 240 / 240
Review of Systems
-
Unable to obtain full review of systems at this time due to: Acuity
History Source: Patient
Physical Exam
-
General: Comfortable
Neuro: Other (lethargic)
Psych: Calm
[2024-10-13] MEDS: ATIVAN 0.5 MG PO ×2 (14:16→16:29)
--- NOTE | 2024-10-13 16:12 | HOSPNOTE ---
Spoke to this patients son. He is in agreement with Hospice care and will sign consents tomorrow morning
--- NOTE | 2024-10-13 17:10 | W.PN.DEATH ---
Pronouncement of
-
Called to see patient to pronounce.
No spontaneous heart tones or respirations noted.
Patient not responsive to verbal stimuli.
Patient is pronounced .
Time of : 16:45
Date of : 10/13/24
Cause of : Kidney Failure
Family Notified: Yes
--- NOTE | 2024-10-13 17:21 | PTCARENOTE ---
Family member rang [facility] at 1643 to say he thinks pt has passed. I listened to lung sounds and could not hear or see any respirations. Dr. Sanchez came to bedside to pronounce of pt at 1645. [facility] called. Will continue to assess family
needs.
--- NOTE | 2024-10-13 17:22 | W.DCSUMMARY ---
Discharge Summary
Discharge Data
Date of Admission: 09/30/24
Date of Discharge: 10/13/24
-
Pending Results: No
Hospital Course
84 yo man with HTN, DM, HLD metastatic cancer, liver bx with poorly diff carcinoma, markers most consistent with germ cell primary, came with falls and diarrhea found acute nonocclusive deep venous thrombosis in the left superficial femoral and
common femoral veins, hyponatremia with hyperkalemia. Patient with significant third spacing and poor oral intake. Developed TREVIN with worsening hyperkalemia while on fluid restriction for his hyponatremia as well as low blood pressures. With poor
functional status and multiple comorbidities. Patient finally declined blood test and meds in AM 10/08/24 and decided to pursue comfort care options only. He was emplaned in great details that active treatment will be stopped, no additional
diagnostic tests done and we will manage his symptoms only with morphine, ativan, laxatives, Tobar as needed. HE verbalized understanding that his Eliquis, Insulin will be stopped and agreeable with this approach. Patient at 4:45pm on
10/13/24
A/P:
#Generalized weakness and falls
#Hyponatremia
#TREVIN
#Hyperkalemia
#Left lower extremity acute DVT:
#Metastatic disease germ cell carcinoma:
#Left portal vein thrombosis
#Chronic diarrhea
#Constipation
#Abdominal pain 2/2 metastatic disease to the liver
#Transaminitis 2/2 metastatic disease
#Moderate protein calorie malnutrition:
#Anemia
#Thrombocytopenia
#BPH
#GOC
I have spent at least 38min reviewing chart, test results, communication with consultants and direct patient care
Discharge Plan
-
Patient Disposition:
Date/Time
Date/Time: 10/13/24 16:45
Discharge Date and Time
Print Language: [place]
--- NOTE | 2024-10-13 17:23 | W.PN.DEATH ---
Pronouncement of
-
Called to see patient to pronounce.
No spontaneous heart tones or respirations noted.
Patient not responsive to verbal stimuli.
Patient is pronounced .
Time of : 16:45
Date of : 10/13/24
Cause of : Acute kidney failure
== END 2024-10-13 16:45 | disposition expired | DRG 843 ==
LOC: 4 WEST ACU 05:07
PROVIDERS: Emergency Medicine; Hospitalist; ADMITTING PHYSICIAN Hospitalist; ATTENDING PHYSICIAN Internal Medicine; CONSULT PHYSICIAN Internal Medicine Hematology & Oncology; CONSULT PHYSICIAN Specialist; EMERGENCY PHYSICIAN Student in an Organized Health Care Education/Training Program; FAMILY PHYSICIAN Family Medicine
DX: C80.1 Malignant (primary) neoplasm, unspecified (principal); I81 Portal vein thrombosis; E22.2 Syndrome of inappropriate secretion of antidiuretic hormone; E44.0 Moderate protein-calorie malnutrition; E87.20 Acidosis, unspecified; I82.412 Acute embolism and thrombosis of left femoral vein; N17.9 Acute kidney failure, unspecified; R64 Cachexia; Z66 Do not resuscitate; Z51.5 Encounter for palliative care; C78.7 Secondary malignant neoplasm of liver and intrahepatic bile duct; C78.00 Secondary malignant neoplasm of unspecified lung; D63.0 Anemia in neoplastic disease; D69.6 Thrombocytopenia, unspecified; E11.22 Type 2 diabetes mellitus with diabetic chronic kidney disease; E78.00 Pure hypercholesterolemia, unspecified; E87.5 Hyperkalemia; E88.09 Other disorders of plasma-protein metabolism, not elsewhere classified; G89.3 Neoplasm related pain (acute) (chronic); I12.9 Hypertensive chronic kidney disease with stage 1 through stage 4 chronic kidney disease, or unspecified chronic kidney disease; K21.9 Gastro-esophageal reflux disease without esophagitis; K59.00 Constipation, unspecified; N18.2 Chronic kidney disease, stage 2 (mild); N40.0 Benign prostatic hyperplasia without lower urinary tract symptoms; R62.7 Adult failure to thrive; Z88.2 Allergy status to sulfonamides; Z88.8 Allergy status to other drugs, medicaments and biological substances; Z79.82 Long term (current) use of aspirin; Z79.84 Long term (current) use of oral hypoglycemic drugs; Z79.899 Other long term (current) drug therapy; Z68.24 Body mass index [BMI] 24.0-24.9, adult
CPT/HCPCS: 76700; 76870; 80048; 80053; 80076; 81003; 82105; 82248; 82533; 82962; 83615; 83735; 83930; 83935; 84100; 84300; 84439; 84443; 84702; 85025; 85027; 85610; 86803; 93005; 93971; 93976; 96360; 97110; 97167; 97530; 99285; J7030